=== PATIENT | female | born 1970 | race Caucasian/White ===

== ENCOUNTER 2016-11-16 12:05 | Inpatient (IN) | payer OTHER ==
[2016-11-16 19:31] VITALS: BMI 25.0
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
[2016-11-16] MEDS ORDERED: METHADONE HCL 10 MG TABLET (FOR DETOX USE ONLY) PO ONE ×2 (20:27→23:00)
[2016-11-16] MEDS ORDERED: LOPERAMIDE HCL 2 MG CAPSULE PO PRN (20:27)
[2016-11-16] MEDS ORDERED: MAGNESIUM HYDROX 2400MG/30ML ORAL SUSPENSION 30 ML CUP PO PRN (20:27)
[2016-11-16] MEDS ORDERED: guaiFENesin/D-METHORPHAN HB 10 ML UNIT-DOSE CUPS PO PRN (20:27)
[2016-11-16] MEDS ORDERED: diphenhydrAMINE HCL 50 MG CAPSULE PO PRN (20:27)
[2016-11-16] MEDS ORDERED: ACETAMINOPHEN 325 MG TABLET (FP) PO PRN (20:27)
[2016-11-16] MEDS ORDERED: P-EPHED 60MG/TRIPROLIDI 2.5MG TABLET PO PRN (20:27)
[2016-11-16] MEDS ORDERED: MAGNESIUM CITRATE 300 ML BOTTLE PO PRN (20:27)
[2016-11-16] MEDS ORDERED: NICOTINE POLACRILEX 4 MG GUM BC PRN (20:27)
[2016-11-16] MEDS ORDERED: MENTHOL/PHENOL 1 EACH UD MM PRN (20:27)
[2016-11-16] MEDS ORDERED: MAG HYDROX/AL HYDROX/SIMETH 30 ML UNIT-DOSE CUP PO PRN (20:27)
[2016-11-16] MEDS ORDERED: IBUPROFEN 400 MG TABLET (FP) PO PRN (20:27)
[2016-11-16] MEDS: diazePAM 5 MG TABLET PO PRN (22:12)
[2016-11-16] MEDS: GABAPENTIN 400 MG CAPSULE (FP) PO SCH (22:13)
[2016-11-16] MEDS: THIAMINE HCL 100 MG TABLET (FP) PO SCH (22:16)
[2016-11-16] MEDS: CLOTRIMAZOLE 1% VAGINAL CREAM WITH APPLICATOR 45 GM TUBE VG SCH (23:18)
[2016-11-17] MEDS: diazePAM 5 MG TABLET PO PRN ×4 (03:05→22:39)
[2016-11-17] MEDS: GABAPENTIN 400 MG CAPSULE (FP) PO SCH ×3 (05:27→22:39)
--- NOTE | 2016-11-17 09:58 | PN ---
[facility] COWS - Scale Resting Pulse: 0= SD 80 or Below Sweatin= Chills/Flushing Restless Observation: 3= Extraneous Movement Pupil Size: 1= Pupils >than Normal Bone or Joint Aches: 2= Severe Diffuse Aches Runny Nose/ Eye Tearin= Runny Nose/Eyes GI Upset > 30mins: 3= Vomiting/Diarrhea Tremor Observation of Outstretched Hands: 2= Slight Tremor Visible Yawning Observation: 1= 1-2x During Session Anxiety or Irritability: 2=Irritable/Anxious Goose Flesh Skin: 0=Smooth Skin COWS Score: 17 BHS Progress Note (SOAP) Subjective: ALERT,IRRITABLE,ANXIOUS,INTERRUPTED SLEEP,TREMOR Objective: 11/17/16 09:56 EKG NSR LVH NO CHEST PAIN,NO SOB,NO DIZZINESS LABS PENDING Assessment: 11/17/16 09:58 WITHDRAWAL SYMPTOM Plan: CONTINUE DETOX
[2016-11-17] MEDS ORDERED: METHADONE HCL 10 MG TABLET (FOR DETOX USE ONLY) PO ONE (10:00)
[2016-11-17] MEDS: cloNIDine HCL 0.1 MG TABLET PO SCH ×2 (10:15→22:39)
[2016-11-17] MEDS: PRENATAL VITAMINS W/ FOLIC ACID TABLET (FP) PO SCH (10:18)
[2016-11-17 10:20] LABS: MCH 28.2 pg (25.7-33.7); MCHC 32.6 g/dl (32.0-36.0); MEAN CELL VOLUME 86.6 fl (80-96); MEAN PLT VOLUME 10.4 fl (7.5-11.1); PLATELET COUNT 317 K/MM3 (134-434); RDW 16.6 % (11.6-15.6); WHITE BLOOD COUNT 11.1 K/mm3 (4.0-10.0)
[2016-11-17] MEDS: NICOTINE 21 MG/24 HOURS TOPICAL PATCH TD SCH (10:20)
--- NOTE | 2016-11-17 10:46 | EKG ---
Test Reason : Blood Pressure : / mmHG Vent. Rate : 083 BPM Atrial Rate : 083 BPM P-R Int : 132 ms QRS Dur : 090 ms QT Int : 382 ms P-R-T Axes : 074 078 072 degrees QTc Int : 448 ms NORMAL SINUS RHYTHM POSSIBLE LEFT ATRIAL ENLARGEMENT LEFT VENTRICULAR HYPERTROPHY ABNORMAL ECG NO PREVIOUS ECGS AVAILABLE Confirmed by EILEEN TERESA MD ([id number]) on 11/17/2016 10:46:02 AM Referred By: Confirmed By:EILEEN TERESA MD
[2016-11-17 10:54] LABS: ALBUMIN 4.2 g/dl (3.4-5.0); ALK PHOS 65 U/L (45-117); ANION GAP 12 (8-16); BILIRUBIN,TOTAL 0.3 mg/dL (0.2-1.0); CALCIUM 9.5 mg/dL (8.5-10.1); CO2 25 mmol/L (21-32); COCKROFT - GAULT 94.3755; CREATININE 0.8 mg/dL (0.55-1.02); GLUCOSE,RANDOM 122 mg/dL (74-106); SGOT/AST 16 U/L (15-37); SGPT/ALT 26 U/L (12-78); TOT PROT 7.8 g/dl (6.4-8.2)
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
[2016-11-17] MEDS: CYCLOBENZAPRINE HCL 10 MG TABLET (FP) PO PRN ×2 (13:24→22:39)
[2016-11-17] MEDS: QUEtiapine FUMARATE 200 MG TABLET PO SCH (22:39)
[2016-11-17] MEDS: THIAMINE HCL 100 MG TABLET (FP) PO SCH (22:39)
[2016-11-17] MEDS: CLOTRIMAZOLE 1% VAGINAL CREAM WITH APPLICATOR 45 GM TUBE VG SCH (23:54)
[2016-11-18] MEDS: GABAPENTIN 400 MG CAPSULE (FP) PO SCH ×4 (08:08→22:11)
--- NOTE | 2016-11-18 08:34 | PN ---
S COWS - Scale Resting Pulse: 0= CT 80 or Below Sweatin= Chills/Flushing Restless Observation: 3= Extraneous Movement Pupil Size: 2= Moderately Dilated Bone or Joint Aches: 2= Severe Diffuse Aches Runny Nose/ Eye Tearin= Runny Nose/Eyes GI Upset > 30mins: 2= Nausea/Diarrhea Tremor Observation of Outstretched Hands: 2= Slight Tremor Visible Yawning Observation: 1= 1-2x During Session Anxiety or Irritability: 2=Irritable/Anxious Goose Flesh Skin: 0=Smooth Skin COWS Score: 17 BHS Progress Note (SOAP) Subjective: ALERT,IRRITABLE,ANXIOUS,REDNESS AND SWELLING OF RIGHT EYE DILATED PUPIL WEAR THE CONTACT LENS R/O CORNEAL ABRASION Objective: 11/18/16 08:33 Vital Signs Temperature 98.2 F 11/18/16 06:00 Pulse Rate 62 11/18/16 06:00 Respiratory Rate 18 11/18/16 06:00 Blood Pressure 101/55 11/18/16 06:00 O2 Sat by Pulse Oximetry (%) Assessment: 11/18/16 08:33 Laboratory Last Values WBC 11.1 K/mm3 (4.0-10.0) H 11/17/16 06:00 RBC 4.67 M/mm3 (3.60-5.2) 11/17/16 06:00 Hgb 13.2 GM/dL (10.7-15.3) 11/17/16 06:00 Hct 40.4 % (32.4-45.2) 11/17/16 06:00 MCV 86.6 fl (80-96) 11/17/16 06:00 MCHC 32.6 g/dl (32.0-36.0) 11/17/16 06:00 RDW 16.6 % (11.6-15.6) H 11/17/16 06:00 Plt Count 317 K/MM3 (134-434) 11/17/16 06:00 MPV 10.4 fl (7.5-11.1) 11/17/16 06:00 Sodium 139 mmol/L (136-145) 11/17/16 06:00 Potassium 3.4 mmol/L (3.5-5.1) L 11/17/16 06:00 Chloride 102 mmol/L (98-107) 11/17/16 06:00 Carbon Dioxide 25 mmol/L (21-32) 11/17/16 06:00 Anion Gap 12 (8-16) 11/17/16 06:00 BUN 10 mg/dL (7-18) 11/17/16 06:00 Creatinine 0.8 mg/dL (0.55-1.02) 11/17/16 06:00 Creat Clearance w eGFR > 60 (>60) 11/17/16 06:00 Random Glucose 122 mg/dL (74-106) H 11/17/16 06:00 Calcium 9.5 mg/dL (8.5-10.1) 11/17/16 06:00 Total Bilirubin 0.3 mg/dL (0.2-1.0) 11/17/16 06:00 AST 16 U/L (15-37) 11/17/16 06:00 ALT 26 U/L (12-78) 11/17/16 06:00 Alkaline Phosphatase 65 U/L (45-117) 11/17/16 06:00 Total Protein 7.8 g/dl (6.4-8.2) 11/17/16 06:00 Albumin 4.2 g/dl (3.4-5.0) 11/17/16 06:00 RPR Titer Reactive 1:1 (NONREACTIVE) H 11/17/16 06:00 T.pallidum Ab (MHA) Reactive (NONREACTIVE) 11/17/16 06:00 Plan: WITHDRAWAL SYMPTOM,R/O CORNEAL ABRASION,TO ER AT [facility] FOR EVALUATION,SPOKE WITH CELESTINO EDWARDS, TO BE TRANSPORTED BY [facility]
[2016-11-18] MEDS: diazePAM 5 MG TABLET PO PRN ×3 (08:36→20:33)
[2016-11-18] MEDS ORDERED: METHADONE HCL 5 MG TABLET (FOR DETOX USE ONLY) PO ONE (10:00)
[2016-11-18] MEDS: cloNIDine HCL 0.1 MG TABLET PO SCH ×2 (12:33→22:11)
[2016-11-18] MEDS: PRENATAL VITAMINS W/ FOLIC ACID TABLET (FP) PO SCH (12:33)
[2016-11-18] MEDS: POTASSIUM CHLORIDE TABS 10 MEQ TABLET.ER (FP) PO SCH (12:34)
[2016-11-18] MEDS: NICOTINE 21 MG/24 HOURS TOPICAL PATCH TD SCH (12:36)
[2016-11-18] MEDS: CIPROFLOXACIN HCL 0.3% OPHTH 2.5ML BOTTLE OU SCH ×3 (14:59→22:57)
[2016-11-18] MEDS: THIAMINE HCL 100 MG TABLET (FP) PO SCH (22:11)
[2016-11-18] MEDS: QUEtiapine FUMARATE 200 MG TABLET PO SCH (22:11)
[2016-11-18] MEDS: CLOTRIMAZOLE 1% VAGINAL CREAM WITH APPLICATOR 45 GM TUBE VG SCH (22:58)
[2016-11-19] MEDS: GABAPENTIN 400 MG CAPSULE (FP) PO SCH ×3 (07:07→22:09)
[2016-11-19] MEDS: CIPROFLOXACIN HCL 0.3% OPHTH 2.5ML BOTTLE OU SCH ×5 (07:07→23:03)
[2016-11-19] MEDS ORDERED: METHADONE HCL 5 MG TABLET (FOR DETOX USE ONLY) PO ONE (10:00)
--- NOTE | 2016-11-19 10:09 | PN ---
BHS Progress Note (SOAP) Subjective: ALERT,IRRITABLE,ANXIOUS,INTERRUPTED SLEEP,PAIN IN THE BODY AND BACK,NO COMPLAINT ABOUT THE EYES Objective: 11/19/16 10:08 Vital Signs Temperature 97.9 F 11/19/16 09:27 Pulse Rate 77 11/19/16 09:27 Respiratory Rate 18 11/19/16 09:27 Blood Pressure 107/69 11/19/16 09:27 O2 Sat by Pulse Oximetry (%) Assessment: 11/19/16 10:08 WITHDRAWAL SYMPTOM Plan: CONTINUE DETOX,FLUID ENCOURAGEMENT,REPEAT CBC,CMP IN AM
[2016-11-19] MEDS: PRENATAL VITAMINS W/ FOLIC ACID TABLET (FP) PO SCH (10:20)
[2016-11-19] MEDS: cloNIDine HCL 0.1 MG TABLET PO SCH ×2 (10:21→22:09)
[2016-11-19] MEDS: POTASSIUM CHLORIDE TABS 10 MEQ TABLET.ER (FP) PO SCH (10:22)
[2016-11-19] MEDS: NICOTINE 21 MG/24 HOURS TOPICAL PATCH TD SCH (10:23)
[2016-11-19] MEDS: diazePAM 5 MG TABLET PO PRN (17:11)
[2016-11-19] MEDS: QUEtiapine FUMARATE 200 MG TABLET PO SCH (22:09)
[2016-11-19] MEDS: THIAMINE HCL 100 MG TABLET (FP) PO SCH (22:09)
[2016-11-19] MEDS: CLOTRIMAZOLE 1% VAGINAL CREAM WITH APPLICATOR 45 GM TUBE VG SCH (23:04)
[2016-11-20] MEDS: CIPROFLOXACIN HCL 0.3% OPHTH 2.5ML BOTTLE OU SCH ×5 (05:52→22:19)
[2016-11-20] MEDS: GABAPENTIN 400 MG CAPSULE (FP) PO SCH ×3 (05:54→22:20)
--- NOTE | 2016-11-20 09:55 | PN ---
S Progress Note (SOAP) Subjective: ALERT,IRRITABLE,ANXIOUS,INTERRUPTED SLEEP,PAIN IN THE BODY Objective: 11/20/16 09:53 Vital Signs Temperature 98.1 F 11/20/16 09:40 Pulse Rate 77 11/20/16 09:40 Respiratory Rate 18 11/20/16 09:40 Blood Pressure 107/70 11/20/16 09:40 O2 Sat by Pulse Oximetry (%) Laboratory Last Values WBC 11.1 K/mm3 (4.0-10.0) H 11/17/16 06:00 RBC 4.67 M/mm3 (3.60-5.2) 11/17/16 06:00 Hgb 13.2 GM/dL (10.7-15.3) 11/17/16 06:00 Hct 40.4 % (32.4-45.2) 11/17/16 06:00 MCV 86.6 fl (80-96) 11/17/16 06:00 MCHC 32.6 g/dl (32.0-36.0) 11/17/16 06:00 RDW 16.6 % (11.6-15.6) H 11/17/16 06:00 Plt Count 317 K/MM3 (134-434) 11/17/16 06:00 MPV 10.4 fl (7.5-11.1) 11/17/16 06:00 Sodium 139 mmol/L (136-145) 11/17/16 06:00 Potassium 3.4 mmol/L (3.5-5.1) L 11/17/16 06:00 Chloride 102 mmol/L (98-107) 11/17/16 06:00 Carbon Dioxide 25 mmol/L (21-32) 11/17/16 06:00 Anion Gap 12 (8-16) 11/17/16 06:00 BUN 10 mg/dL (7-18) 11/17/16 06:00 Creatinine 0.8 mg/dL (0.55-1.02) 11/17/16 06:00 Creat Clearance w eGFR > 60 (>60) 11/17/16 06:00 Random Glucose 122 mg/dL (74-106) H 11/17/16 06:00 Calcium 9.5 mg/dL (8.5-10.1) 11/17/16 06:00 Total Bilirubin 0.3 mg/dL (0.2-1.0) 11/17/16 06:00 AST 16 U/L (15-37) 11/17/16 06:00 ALT 26 U/L (12-78) 11/17/16 06:00 Alkaline Phosphatase 65 U/L (45-117) 11/17/16 06:00 Total Protein 7.8 g/dl (6.4-8.2) 11/17/16 06:00 Albumin 4.2 g/dl (3.4-5.0) 11/17/16 06:00 RPR Titer Reactive 1:1 (NONREACTIVE) H 11/17/16 06:00 T.pallidum Ab (MHA) Reactive (NONREACTIVE) 11/17/16 06:00 REPEAT CBC,CMP PENDING 11/20/16 10:00 Assessment: 11/20/16 10:00 WITHDRAWAL SYMPTOM Plan: CONTINUE DETOX,BICILLIN LA 2.4 MILLION UNITS IM
[2016-11-20 10:00] LABS: ALBUMIN 3.1 g/dl (3.4-5.0); ANION GAP 6 (8-16); BILIRUBIN,TOTAL 0.2 mg/dL (0.2-1.0); CALCIUM 8.9 mg/dL (8.5-10.1); CO2 31 mmol/L (21-32); CREATININE 0.6 mg/dL (0.55-1.02); GLUCOSE,RANDOM 107 mg/dL (74-106); SGOT/AST 33 U/L (15-37); SGPT/ALT 44 U/L (12-78); TOT PROT 5.9 g/dl (6.4-8.2)
[2016-11-20] MEDS ORDERED: METHADONE HCL 10 MG TABLET (FOR DETOX USE ONLY) PO ONE (10:00)
[2016-11-20 10:01] LABS: ALK PHOS 65 U/L (45-117)
[2016-11-20 10:07] LABS: MCHC 32.5 g/dl (32.0-36.0); MEAN CELL VOLUME 86.2 fl (80-96); MEAN PLT VOLUME 9.6 fl (7.5-11.1); PLATELET COUNT 241 K/MM3 (134-434); RDW 16.6 % (11.6-15.6); WHITE BLOOD COUNT 6.6 K/mm3 (4.0-10.0)
[2016-11-20] MEDS ORDERED: PENICILLIN G BENZATHINE 2,400,000 UNIT/4 ML PFS IM ONE (10:15)
[2016-11-20] MEDS: PRENATAL VITAMINS W/ FOLIC ACID TABLET (FP) PO SCH (10:17)
[2016-11-20] MEDS: cloNIDine HCL 0.1 MG TABLET PO SCH ×2 (10:17→22:19)
[2016-11-20] MEDS: POTASSIUM CHLORIDE TABS 10 MEQ TABLET.ER (FP) PO SCH (10:17)
[2016-11-20] MEDS: NICOTINE 21 MG/24 HOURS TOPICAL PATCH TD SCH (10:18)
[2016-11-20] MEDS ORDERED: hydrOXYzine PAMOATE 50 MG CAPSULE (FP) PO PRN (12:44)
[2016-11-20] MEDS: THIAMINE HCL 100 MG TABLET (FP) PO SCH (22:19)
[2016-11-20] MEDS: QUEtiapine FUMARATE 200 MG TABLET PO SCH (22:19)
[2016-11-20] MEDS: CYCLOBENZAPRINE HCL 10 MG TABLET (FP) PO PRN (22:20)
[2016-11-20] MEDS: CLOTRIMAZOLE 1% VAGINAL CREAM WITH APPLICATOR 45 GM TUBE VG SCH (23:18)
[2016-11-21] MEDS: CIPROFLOXACIN HCL 0.3% OPHTH 2.5ML BOTTLE OU SCH (05:43)
[2016-11-21] MEDS ORDERED: METHADONE HCL 5 MG TABLET (FOR DETOX USE ONLY) PO ONE (06:00)
[2016-11-21 06:17] VITALS: BP 94/56; PULSE 56; TEMP 97.5
[2016-11-21] MEDS: GABAPENTIN 400 MG CAPSULE (FP) PO SCH (07:11)
--- NOTE | 2016-11-21 08:44 | PN ---
S Progress Note (SOAP) Subjective: ALERT,NO COMPLAINT Objective: 11/21/16 08:43 Vital Signs Temperature 97.5 F L 11/21/16 06:16 Pulse Rate 56 L 11/21/16 06:16 Respiratory Rate 18 11/21/16 06:16 Blood Pressure 94/56 11/21/16 06:16 O2 Sat by Pulse Oximetry (%) Assessment: 11/21/16 08:43 DETOX COMPLETED,NO WITHDRAWAL SYMPTOM Plan: DISCHARGE TODAY,FOLLOW UP WITH AFTER CARE PROGRAM ARRANGEMENT
--- NOTE | 2016-11-21 08:48 | PN ---
[facility] Progress Note Note: Laboratory Results - last 24 hr 11/20/16 11/20/16 07:00 07:00 WBC 6.6 D RBC 4.40 Hgb 12.3 Hct 37.9 MCV 86.2 MCHC 32.5 RDW 16.6 H Plt Count 241 D MPV 9.6 Sodium 143 Potassium 4.2 D Chloride 106 Carbon Dioxide 31 D Anion Gap 6 L BUN 14 D Creatinine 0.6 D Creat Clearance w eGFR > 60 Random Glucose 107 H Calcium 8.9 Total Bilirubin 0.2 D AST 33 D ALT 44 D Alkaline Phosphatase 65 Total Protein 5.9 L D Albumin 3.1 L D K IS 4.2 WILL D/C K DISCHARGE TODAY
--- NOTE | 2016-11-21 08:50 | DS ---
[facility] Detox Discharge Summary Admission Date: 11/16/16 Discharge Date: 11/21/16 - History Present History: Opioid Dependence Additional Comments: FOLLOW UP WITH [facility]GRAM ARRANGEMENT AND PMD FOR MEDICAL PROBLEM Pertinent Past History: NICOTINE DEPENDENCE NEUROPATHY BIPOLAR 2 DISORDER VAGINITIS - Physical Exam Results Vital Signs: Vital Signs Temperature 97.5 F L 11/21/16 06:16 Pulse Rate 56 L 11/21/16 06:16 Respiratory Rate 18 11/21/16 06:16 Blood Pressure 94/56 11/21/16 06:16 O2 Sat by Pulse Oximetry (%) Pertinent Admission Physical Exam Findings: WITHDRAWAL SYMPTOM - Treatment Hospital Course: Detox Protocol Followed, Detoxed Safely, Responded well, Discharged Condition Good, Rehab Referral Accepted Patient has Accepted a Rehab Referral to: [facility] - Medication Discharge Medications: Ambulatory Orders Gabapentin [Neurontin -] 600 mg PO TID 11/16/16 Hydrocodone/Acetaminophen [Hydrocodon-Acetaminoph 7.5-325] 1 each PO Q6H Quetiapine Fumarate "Xr" [Seroquel Xr -] 600 mg PO HS 11/16/16 - AMA Did Patient Leave Against Medical Advice: No
--- NOTE | 2016-11-21 09:04 | PN ---
S Progress Note Note: PATIENT CHANGED HER MIND DID NOT WANT TO GO TO REVELATION,TO CONTINUE CIPRO OPH SOLUTION AND CLOTRIMAZOLE VAGINAL CREAM FOLLOW UP WITH PMD FOR MEDICAL PROBLEM AND AFTER CARE PROGRAM ARRANGEMENT
== END 2016-11-21 09:30 | disposition home or self-care (01) | DRG 897 ==
LOC: YASAS 12:05 → Y6N 20:42
PROVIDERS: ADMIT Internal Medicine Addiction Medicine; ATTEND Internal Medicine
PROC: HZ2ZZZZ Detoxification Services for Substance Abuse Treatment (ICD-10-PCS; principal; 2016-11-16)
DX: F11.23 Opioid dependence with withdrawal (principal); F31.81 Bipolar II disorder; F17.210 Nicotine dependence, cigarettes, uncomplicated; F19.24 Other psychoactive substance dependence with psychoactive substance-induced mood disorder; G62.9 Polyneuropathy, unspecified; G47.00 Insomnia, unspecified; N76.1 Subacute and chronic vaginitis; H57.8 Other specified disorders of eye and adnexa; Z91.5 Personal history of self-harm; Z59.0 Homelessness
CPT/HCPCS: 36415; 80053; 85027; 86593; 86780; 93005; 93010

== ENCOUNTER 2016-11-18 09:01 | Emergency (ER) | payer OTHER ==
[2016-11-18 09:10] VITALS: BP 116/80; PULSE 76; TEMP 98.5; BMI 25.0
[2016-11-18] MEDS ORDERED: TETRACAINE 0.5% OPHTH SOLN 2 ML BOTTLE ONE (10:20)
[2016-11-18] MEDS ORDERED: CIPROFLOXACIN 0.3% EYE DROPS 5 ML BOTTLE OP SCH (10:30)
[2016-11-18] MEDS ORDERED: IBUPROFEN 400 MG TABLET (FP) PO ONE ×2 (10:31→10:43)
--- NOTE | 2016-11-18 10:37 | PDOC ---
History of Present Illness <Josselyn Mcclendon - Last Filed: 11/18/16 10:32> - General History Source: Patient Exam Limitations: No Limitations - History of Present Illness Initial Comments: 11/18/16 10:41 The patient is a 46 year old female with a significant past medical history of depression, who presents to the ED with coming from detox for redness and itching in both eyes that began 2 days ago. She was told to use a specific eye lotion to wash her contacts (opti-free). However, she was only given normal saline to use at [facility]. She states she can't open her eyes at all today. She is experiencing Photophobia and 10/10 pain in both eyes. Denies foreign body sensation. She denies itching in the eyes. O/S 20/70 O/D 50 <Art Espinosa - Last Filed: 11/18/16 10:44> - General Chief Complaint: Eye Problem Stated Complaint: SWOLLEN EYES Time Seen by Provider: 11/18/16 09:16 Past History - Past Medical History Anemia: No Asthma: No Cancer: No Cardiac Disorders: No CVA: No COPD: No CHF: No Dementia: No Diabetes: No GI Disorders: No Disorders: No HTN: No Hypercholesterolemia: No Kidney Stones: No Liver Disease: No Suicide Attempt (Hx): Yes (13 years cut left wrist) Seizures: No Thyroid Disease: No - Surgical History Abdominal Surgery: No Appendectomy: No Cardiac Surgery: No Cholecystectomy: No Lung Surgery: No Neurologic Surgery: No Orthopedic Surgery: No - Reproductive History PID: No - Psycho/Social/Smoking Cessation Hx Anxiety: No Suicidal Ideation: No Smoking History: Never smoked Have you smoked in the past 12 months: Yes Number of Cigarettes Smoked Daily: 20 Cigars Per Day: 0 Information on smoking cessation initiated: No 'Breaking Loose' booklet given: 11/16/16 Hx Alcohol Use: No Drug/Substance Use Hx: Yes Substance Use Type: Opiates Hx Substance Use Treatment: No <Josselyn Mcclendon - Last Filed: 11/18/16 10:32> <Art Espinosa - Last Filed: 11/18/16 10:44> - Past Medical History Allergies/Adverse Reactions: Allergies Allergy/AdvReac Type Severity Reaction Status Date / Time No Known Allergies Allergy Verified 11/18/16 09:29 Home Medications: Ambulatory Orders Gabapentin [Neurontin -] 600 mg PO TID 11/16/16 Hydrocodone/Acetaminophen [Hydrocodon-Acetaminoph 7.5-325] 1 each PO Q6H Quetiapine Fumarate "Xr" [Seroquel Xr -] 600 mg PO HS 11/16/16 Review of Systems - Review of Systems Able to Perform ROS?: Yes Comments:: 11/18/16 10:42 GENERAL/CONSTITUTIONAL: No fever or chills. No weakness. HEAD, EYES, EARS, NOSE AND THROAT: + difficulty opening eyes. + redness in eyes. No ear pain or discharge. No sore throat. CARDIOVASCULAR: No chest pain or shortness of breath. RESPIRATORY: No cough, wheezing, or hemoptysis. GASTROINTESTINAL: No nausea, vomiting, diarrhea or constipation. GENITOURINARY: No dysuria, frequency, or change in urination. MUSCULOSKELETAL: No joint or muscle swelling or pain. No neck or back pain. SKIN: No rash NEUROLOGIC: No headache, vertigo, loss of consciousness, or change in strength/ sensation. ENDOCRINE: No increased thirst. No abnormal weight change. HEMATOLOGIC/LYMPHATIC: No anemia, easy bleeding, or history of blood clots. ALLERGIC/IMMUNOLOGIC: No hives or skin allergy. <Art Espinosa - Last Filed: 11/18/16 10:44> *Physical Exam - Vital Signs Last Vital Signs Temp Pulse Resp BP Pulse Ox 98.5 F 76 18 116/80 99 11/18/16 09:08 11/18/16 09:08 11/18/16 09:08 11/18/16 09:08 11/18/16 09:08 <Josselyn Mcclendon - Last Filed: 11/18/16 10:32> - Vital Signs Last Vital Signs Temp Pulse Resp BP Pulse Ox 98.5 F 76 18 116/80 99 11/18/16 09:08 11/18/16 09:08 11/18/16 09:08 11/18/16 09:08 11/18/16 09:08 - Physical Exam Comments: 11/18/16 10:42 GENERAL: Awake, alert, and fully oriented, in no acute distress HEAD: No signs of trauma EYES: PERRLA, EOMI, sclera anicteric. Bilateral conjunctival injection. No foreign bodies visualized. Left eye: small fluorescein uptake of the superior portion of the iris. ENT: Auricles normal inspection, hearing grossly normal, nares patent, oropharynx clear without exudates. Moist mucosa NECK: Normal ROM, supple, no lymphadenopathy, JVD, or masses LUNGS: Breath sounds equal, clear to auscultation bilaterally. No wheezes, and no crackles HEART: Regular rate and rhythm, normal S1 and S2, no murmurs, rubs or gallops ABDOMEN: Soft, nontender, normoactive bowel sounds. No guarding, no rebound. No masses EXTREMITIES: Normal range of motion, no edema. No clubbing or cyanosis. No cords, erythema, or tenderness NEUROLOGICAL: Cranial nerves II through XII grossly intact. Normal speech, normal gait SKIN: Warm, Dry, normal turgor, no rashes or lesions noted. <Art Espinosa - Last Filed: 11/18/16 10:44> Medical Decision Making - Medical Decision Making 11/18/16 10:32 46 yo F currently in detox at [facility] for heroin abuse, here wtih c/o bilateral eye pain and redness. pt is contact wearer. states gets irritation from saline eye wash which she has been using at detox because they didn't have another type. states pain for 2 days, does have photophobia, no foreign body sensation. states is no longer wearing contact lenses. notes eye redness. no change to vision. on exam bilat eye conj injection, edematous, left eye with punctate areas of flourescin uptake. impression: bilat conjunctivites possible allergic. let eye abrasion cornea. no contacts x one week. ciproflox eye drops motrin for pain control dc to rehab <Josselyn Mcclendon - Last Filed: 11/18/16 10:32> *DC/Admit/Observation/Transfer - Discharge Dispostion Admit: No <Josselyn Mcclendon - Last Filed: 11/18/16 10:32> - Attestations Scribe Attestion: 11/18/16 10:44 Documentation prepared by Art Espinosa, acting as emergency medical technician/driver for Josselyn Mcclendon MD, MD. <Art Espinosa - Last Filed: 11/18/16 10:44> Diagnosis at time of Disposition: Corneal abrasion - Patient Instructions Printed Discharge Instructions: Corneal Abrasion Additional Instructions: use ciprofloxacin eye drops, one drop in each eye four times daily x 10 days. do not wear contacts until treatment is completed. do not use saline eye wash. you can also use visine antihistamin drops for eye redness or itching. wear sunglassess, or keep lighting low to aid with light sensitivity. return for any change to vision or any concerns.
[2016-11-18] MEDS ORDERED: CIPROFLOXACIN 0.3% EYE DROPS 5 ML BOTTLE OP ONE (10:38)
== END 2016-11-18 11:50 | disposition home or self-care (01) ==
LOC: JERFT 09:01 → JER 09:01
DX: H10.13 Acute atopic conjunctivitis, bilateral (principal); S05.02XA Injury of conjunctiva and corneal abrasion without foreign body, left eye, initial encounter; X58.XXXA Exposure to other specified factors, initial encounter; Y93.9 Activity, unspecified; F32.9 Major depressive disorder, single episode, unspecified; Z59.0 Homelessness
CPT/HCPCS: 99282-25

== ENCOUNTER 2017-01-18 10:04 | Inpatient (IN) | payer OTHER ==
[2017-01-18 11:34] VITALS: BMI 24.3
--- NOTE | 2017-01-18 15:45 | HP ---
COWS - Scale Resting Pulse: 1= [place] 81-100 Sweatin=Flushed/Facial Moisture Restless Observation: 3= Extraneous Movement Pupil Size: 2= Moderately Dilated Bone or Joint Aches: 2= Severe Diffuse Aches Runny Nose/ Eye Tearin= Runny Nose/Eyes GI Upset > 30mins: 3= Vomiting/Diarrhea Tremor Observation: 2= Slight Tremor Visible Yawning Observation: 2= >3x During Session Anxiety or Irritability: 2=Irritable/Anxious Goose Flesh Skin: 0=Smooth Skin COWS Score: 21 Admission ROS BHS - HPI Chief Complaint: i need help to stop using heroin and cocaine Allergies/Adverse Reactions: Allergies Allergy/AdvReac Type Severity Reaction Status Date / Time No Known Allergies Allergy Verified 01/18/17 15:37 History of Present Illness: this 46 years old female with heroin and cocaine dependence,seeking help to stop last detox [facility] 11/16/16 to 11/21/16 bipolar disorder nicotine dependence vaginal discharge for 1 week no significant period of sobriety Exam Limitations: No Limitations - Ebola screening Have you traveled outside of the country in the last 21 days: No Have you had contact with anyone from an Ebola affected area: No Have you been sick,other than usual withdrawal symptoms: No Do you have a fever: No - Review of Systems Constitutional: Chills, Diaphoresis, Loss of Appetite, Malaise, Changes in sleep , Weakness, Unintentional Wgt. Loss EENT: reports: Tearing, Nose Congestion Respiratory: reports: No Symptoms reported Cardiac: reports: No Symptoms Reported GI: reports: Diarrhea, Nausea, Vomiting, Abdominal cramping : reports: No Symptoms Reported Integumentary: reports: Dryness Neuro: reports: Headache, Tremors Endocrine: reports: No Symptoms Reported Hematology: reports: No Symptoms Reported Psychiatric: reports: Judgement Intact (bipolar disorder), Mood/Affect Appropiate, other Patient History - Patient Medical History Hx Anemia: No Hx Asthma: Yes (on albuterolinhaler) Hx Chronic Obstructive Pulmonary Disease (COPD): No Hx Cancer: No Hx Cardiac Disorders: No Hx Congestive Heart Failure: No Hx Hypertension: No Hx Hypercholesterolemia: No Hx Pacemaker: No HX Cerebrovascular Accident: No Hx Seizures: No Hx Dementia: No Hx Diabetes: No Hx Gastrointestinal Disorders: No Hx Liver Disease: No Hx Genitourinary Disorders: No Hx Sexually Transmitted Disorders: No Hx Renal Disease (ESRD): No Hx Thyroid Disease: No Hx Human Immunodeficiency Virus (HIV): No (last 11/15 negtive) Hx Hepatitis C: No Hx Depression: Yes Hx Suicide Attempt: Yes (13 years cut left wrist) Hx Bipolar Disorder: No Hx Schizophrenia: No Other Medical History: no suicidal,no homicidal,vaginal discharge for 7 days - Patient Surgical History Past Surgical History: No Hx Neurologic Surgery: No Hx Cataract Extraction: No Hx Cardiac Surgery: No Hx Lung Surgery: No Hx Breast Surgery: No Hx Breast Biopsy: No Hx Abdominal Surgery: No Hx Appendectomy: No Hx Cholecystectomy: No Hx Genitourinary Surgery: No Hx Section: No Hx Orthopedic Surgery: No Anesthesia Reaction: No - PPD History Previous Implant?: Yes Documented Results: Negative w/proof Implanted On Prior [facility] Admission?: Yes Date: 11/18/16 Results: o mm PPD to be Administered?: No - Reproductive History Patient is a Female of Child Bearing Age (11 -55 yrs old): Yes Last Menstrual Period: 10/17/16 Patient : No - Smoking Cessation Smoking history: Current every day smoker Have you smoked in the past 12 months: Yes Aproximately how many cigarettes per day: 20 Cigars Per Day: 0 Hx Chewing Tobacco Use: No Initiated information on smoking cessation: Yes 'Breaking Loose' booklet given: 01/18/17 - Substance & Tx. History Hx Alcohol Use: No Hx Substance Use: Yes Substance Use Type: Cocaine, Opiates Hx Substance Use Treatment: Yes ([facility] 11/16/16 to 11/21/16) - Substances Abused Heroin Route: Inhalation Frequency: Daily Amount used: 30 bags Age of first use: 46 Date of Last Use: 01/18/17 Alcohol Route: Oral Frequency: Daily Amount used: 3 four locos Age of first use: 16 Date of Last Use: 01/18/17 Cocaine Route: Inhalation Frequency: 1-2 times per week Amount used: $50 Age of first use: 30 Date of Last Use: 01/17/17 Family Disease History - Family Disease History Family Disease History: Other: Father (), Mother (), Brother ( no contact) Admission Physical Exam BHS - Vital Signs Vital Signs: Vital Signs - 24 hr 01/18/17 11:29 Temperature 97.8 F Pulse Rate 93 H Respiratory 18 Rate Blood Pressure 148/89 - Physical General Appearance: Yes: Moderate Distress, Tremorous, Irritable, Sweating, Anxious HEENTM: Yes: Normal ENT Inspection, ZEESHAN, Pharynx Normal Respiratory: Yes: Lungs Clear, Normal Breath Sounds, No Respiratory Distress Neck: Yes: Within Normal Limits Breast: Yes: Breast Exam Deferred Cardiology: Yes: Within Normal Limits, Regular Rhythm, Regular Rate, S1, S2 Abdominal: Yes: Within Normal Limits, Normal Bowel Sounds, Non Tender, Flat, Soft Genitourinary: Yes: Within Normal Limits Back: Yes: Muscle Spasm Musculoskeletal: Yes: full range of Motion, Back pain, Joint Stiffness, Muscle Pain Extremities: Yes: Tremors Neurological: Yes: stores naval II-XII NML intact, Fully Oriented, Alert, Motor Strength 5/5 Integumentary: Yes: Dry Lymphatic: Yes: Within Normal Limits - Diagnostic (1) Bipolar disorder Current Visit: No Status: Acute (2) Insomnia Current Visit: No Status: Acute (3) Nicotine dependence Current Visit: No Status: Acute Qualifiers: Nicotine product type: cigarettes Substance use status: in withdrawal Qualified Code(s): F17.213 - Nicotine dependence, cigarettes, with withdrawal (4) Opioid dependence with withdrawal Current Visit: No Status: Acute (5) Vaginitis Current Visit: No Status: Acute Qualifiers: Chronicity: subacute Qualified Code(s): N76.1 - Subacute and chronic vaginitis (6) Neuropathy Current Visit: No Status: Chronic (7) Weight loss Current Visit: Yes Status: Acute Cleared for Admission [facility] - Detox or Rehab [facility] Level of Care: Medically Managed Detox Regimen/Protocol: Methadone/Valium [facility] Breath Alcohol Content Breath Alcohol Content: 0 Urine Pregancy Test - Result Urine Test Results: Negative- NO Line Present Urine Drug Screen - Results Drug Screen Negative: No Urine Drug Screen Results: SWETA-Cocaine, OPI-Opiates, BZO-Benzodiazepines, MTD- Methadone
[2017-01-18] MEDS ORDERED: NICOTINE POLACRILEX 2 MG GUM BC PRN (15:59)
[2017-01-18] MEDS ORDERED: P-EPHED 60MG/TRIPROLIDI 2.5MG TABLET PO PRN (15:59)
[2017-01-18] MEDS ORDERED: MAG HYDROX/AL HYDROX/SIMETH 30 ML UNIT-DOSE CUP PO PRN (15:59)
[2017-01-18] MEDS ORDERED: MENTHOL/PHENOL 1 EACH UD MM PRN (15:59)
[2017-01-18] MEDS ORDERED: LOPERAMIDE HCL 2 MG CAPSULE PO PRN (15:59)
[2017-01-18] MEDS ORDERED: MAGNESIUM HYDROX 2400MG/30ML ORAL SUSPENSION 30 ML CUP PO PRN (15:59)
[2017-01-18] MEDS ORDERED: guaiFENesin/D-METHORPHAN HB 10 ML UNIT-DOSE CUPS PO PRN (15:59)
[2017-01-18] MEDS ORDERED: MAGNESIUM CITRATE 300 ML BOTTLE PO PRN (15:59)
[2017-01-18] MEDS ORDERED: METHADONE HCL 10 MG TABLET (FOR DETOX USE ONLY) PO ONE ×2 (17:00→23:00)
[2017-01-18] MEDS ORDERED: diazePAM 5 MG TABLET PO ONE (17:00)
[2017-01-18] MEDS: NICOTINE 21 MG/24 HOURS TOPICAL PATCH TD SCH (17:32)
[2017-01-18] MEDS: hydrOXYzine PAMOATE 50 MG CAPSULE (FP) PO PRN (18:03)
[2017-01-18] MEDS: IBUPROFEN 400 MG TABLET (FP) PO PRN (18:04)
[2017-01-18] MEDS: ACETAMINOPHEN 325 MG TABLET (FP) PO PRN (20:34)
[2017-01-18 21:09] LABS: URINE APPEARANCE CLEAR; URINE BILIRUBIN NEGATIVE (NEGATIVE); URINE BLOOD NEGATIVE (NEGATIVE); URINE COLOR YELLOW; URINE GLUCOSE (UA) NEGATIVE (NEGATIVE); URINE KETONE TRACE (NEGATIVE); URINE LEUK ESTERASE NEGATIVE (NEGATIVE); URINE NITRITE NEGATIVE (NEGATIVE); URINE PROTEIN NEGATIVE (NEGATIVE); URINE UROBILINOGEN NEGATIVE mg/dL (0.2-1.0)
[2017-01-18] MEDS: metroNIDAZOLE 250 MG TABLET PO SCH (22:23)
[2017-01-18] MEDS: diazePAM 5 MG TABLET PO SCH (22:23)
[2017-01-18] MEDS: THIAMINE HCL 100 MG TABLET (FP) PO SCH (22:23)
[2017-01-18] MEDS: diphenhydrAMINE HCL 50 MG CAPSULE PO PRN (22:25)
[2017-01-18] MEDS: MICONAZOLE NITRATE 100 MG SUPP SUPP.VAG PV SCH (22:59)
[2017-01-19] MEDS: IBUPROFEN 400 MG TABLET (FP) PO PRN ×2 (04:26→12:14)
[2017-01-19] MEDS: metroNIDAZOLE 250 MG TABLET PO SCH ×3 (05:29→22:19)
[2017-01-19] MEDS: diazePAM 5 MG TABLET PO SCH ×3 (05:29→22:20)
[2017-01-19] MEDS ORDERED: METHADONE HCL 10 MG TABLET (FOR DETOX USE ONLY) PO SCH (10:00)
--- NOTE | 2017-01-19 10:21 | PN ---
S CIWA - CIWA Score Nausea/Vomitin Muscle Tremors: 3 Anxiety: 3 Agitation: 2 Paroxysmal Sweats: 1-Minimal Palms Moist Orientation: 0-Oriented Tacttile Disturbances: 1-Very Mild Itch/Numbness Auditory Disturbances: 1-Very Mild Visual Disturbances: 1-Very Mild Sensitivity Headache: 2-Mild CIWA-Ar Total Score: 17 BHS COWS - Scale Resting Pulse: 0= [place] 80 or Below Sweatin= Chills/Flushing Restless Observation: 3= Extraneous Movement Pupil Size: 1= Pupils >than Normal Bone or Joint Aches: 2= Severe Diffuse Aches Runny Nose/ Eye Tearin= Runny Nose/Eyes GI Upset > 30mins: 2= Nausea/Diarrhea Tremor Observation of Outstretched Hands: 2= Slight Tremor Visible Yawning Observation: 1= 1-2x During Session Anxiety or Irritability: 2=Irritable/Anxious Goose Flesh Skin: 0=Smooth Skin COWS Score: 16 S Progress Note (SOAP) Subjective: ALERT,IRRITABLE,ANXIOUS,INTERRUPTED SLEEP,TREMOR,PAIN IN THE BODY AND BACK, TREMOR Objective: 01/19/17 10:20 Vital Signs Temperature 98.1 F 01/19/17 06:00 Pulse Rate 63 01/19/17 06:00 Respiratory Rate 18 01/19/17 06:00 Blood Pressure 91/60 01/19/17 06:00 O2 Sat by Pulse Oximetry (%) EKG NSR,LEFT VENTRICULAR HYPERTROPHY Laboratory Last Values Urine Color Yellow 01/18/17 17:00 Urine Appearance Clear 01/18/17 17:00 Urine pH 6.0 (5.0-8.0) 01/18/17 17:00 Ur Specific [place] 1.025 (1.005-1.025) 01/18/17 17:00 Urine Protein Negative (NEGATIVE) 01/18/17 17:00 Urine Glucose (UA) Negative (NEGATIVE) 01/18/17 17:00 Urine Ketones Trace (NEGATIVE) H 01/18/17 17:00 Urine Blood Negative (NEGATIVE) 01/18/17 17:00 Urine Nitrite Negative (NEGATIVE) 01/18/17 17:00 Urine Bilirubin Negative (NEGATIVE) 01/18/17 17:00 Urine Urobilinogen Negative mg/dL (0.2-1.0) 01/18/17 17:00 Ur Leukocyte Esterase Negative (NEGATIVE) 01/18/17 17:00 LABS PENDING Assessment: 01/19/17 10:21 WITHDRAWAL SYMPTOM Plan: CONTINUE DETOX
[2017-01-19 10:24] LABS: MCH 30.1 pg (25.7-33.7); MCHC 33.2 g/dl (32.0-36.0); MEAN CELL VOLUME 90.6 fl (80-96); MEAN PLT VOLUME 10.2 fl (7.5-11.1); PLATELET COUNT 172 K/MM3 (134-434); RDW 18.2 % (11.6-15.6); WHITE BLOOD COUNT 5.4 K/mm3 (4.0-10.0)
--- NOTE | 2017-01-19 10:24 | EKG ---
Test Reason : Blood Pressure : / mmHG Vent. Rate : 079 BPM Atrial Rate : 079 BPM P-R Int : 128 ms QRS Dur : 092 ms QT Int : 394 ms P-R-T Axes : 075 074 059 degrees QTc Int : 451 ms NORMAL SINUS RHYTHM POSSIBLE LEFT ATRIAL ENLARGEMENT LEFT VENTRICULAR HYPERTROPHY ABNORMAL ECG WHEN COMPARED WITH ECG OF 16-NOV-2016 21:04, NO SIGNIFICANT CHANGE WAS FOUND Confirmed by MD TRISTEN, YASMANY ([id number]) on 01/19/2017 10:23:43 AM Referred By: Brian Mckeon Confirmed By:YASMANY RMAON MD
[2017-01-19] MEDS: PRENATAL VITAMINS W/ FOLIC ACID TABLET (FP) PO SCH (10:33)
[2017-01-19] MEDS: NICOTINE 21 MG/24 HOURS TOPICAL PATCH TD SCH (10:34)
[2017-01-19] MEDS: diazePAM 5 MG TABLET PO PRN (10:35)
[2017-01-19 10:50] LABS: ALBUMIN 3.2 g/dl (3.4-5.0); ALK PHOS 48 U/L (45-117); ANION GAP 5 (8-16); BILIRUBIN,TOTAL 0.2 mg/dL (0.2-1.0); CALCIUM 8.7 mg/dL (8.5-10.1); CO2 28 mmol/L (21-32); CREATININE 0.6 mg/dL (0.55-1.02); GLUCOSE,RANDOM 87 mg/dL (74-106); SGOT/AST 23 U/L (15-37); SGPT/ALT 34 U/L (12-78); TOT PROT 5.9 g/dl (6.4-8.2)
[2017-01-19] MEDS: hydrOXYzine PAMOATE 50 MG CAPSULE (FP) PO PRN (12:15)
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
[2017-01-19] MEDS: diphenhydrAMINE HCL 50 MG CAPSULE PO PRN (22:20)
[2017-01-19] MEDS: THIAMINE HCL 100 MG TABLET (FP) PO SCH (22:22)
[2017-01-19] MEDS: MICONAZOLE NITRATE 100 MG SUPP SUPP.VAG PV SCH (23:18)
[2017-01-20] MEDS: IBUPROFEN 400 MG TABLET (FP) PO PRN ×3 (03:00→19:34)
[2017-01-20] MEDS: diazePAM 5 MG TABLET PO PRN ×3 (03:02→19:35)
[2017-01-20] MEDS: metroNIDAZOLE 250 MG TABLET PO SCH ×3 (05:17→22:13)
[2017-01-20] MEDS: ACETAMINOPHEN 325 MG TABLET (FP) PO PRN (05:18)
[2017-01-20] MEDS: PRENATAL VITAMINS W/ FOLIC ACID TABLET (FP) PO SCH (10:32)
[2017-01-20] MEDS: hydrOXYzine PAMOATE 50 MG CAPSULE (FP) PO PRN ×2 (10:33→15:35)
[2017-01-20] MEDS: METHADONE HCL 5 MG TABLET (FOR DETOX USE ONLY) PO SCH (10:33)
[2017-01-20] MEDS: NICOTINE 21 MG/24 HOURS TOPICAL PATCH TD SCH (10:33)
[2017-01-20] MEDS: diazePAM 5 MG TABLET PO SCH ×2 (10:35→22:13)
--- NOTE | 2017-01-20 11:06 | PN ---
[facility] CIWA - CIWA Score Nausea/Vomitin Muscle Tremors: 3 Anxiety: 3 Agitation: 2 Paroxysmal Sweats: 1-Minimal Palms Moist Orientation: 0-Oriented Tacttile Disturbances: 1-Very Mild Itch/Numbness Auditory Disturbances: 1-Very Mild Visual Disturbances: 1-Very Mild Sensitivity Headache: 2-Mild CIWA-Ar Total Score: 17 BHS COWS - Scale Resting Pulse: 0= [place] 80 or Below Sweatin= Chills/Flushing Restless Observation: 3= Extraneous Movement Pupil Size: 1= Pupils >than Normal Bone or Joint Aches: 2= Severe Diffuse Aches Runny Nose/ Eye Tearin= Runny Nose/Eyes GI Upset > 30mins: 3= Vomiting/Diarrhea Tremor Observation of Outstretched Hands: 2= Slight Tremor Visible Yawning Observation: 1= 1-2x During Session Anxiety or Irritability: 2=Irritable/Anxious Goose Flesh Skin: 0=Smooth Skin COWS Score: 17 S Progress Note (SOAP) Subjective: alert,irritable,anxious,interrupted sleep,tremor,pain in the body and back Objective: 01/20/17 11:04 Vital Signs Temperature 98.1 F 01/20/17 09:43 Pulse Rate 72 01/20/17 09:43 Respiratory Rate 18 01/20/17 09:43 Blood Pressure 116/64 01/20/17 09:43 O2 Sat by Pulse Oximetry (%) Laboratory Last Values WBC 5.4 K/mm3 (4.0-10.0) 01/19/17 06:30 RBC 4.24 M/mm3 (3.60-5.2) 01/19/17 06:30 Hgb 12.7 GM/dL (10.7-15.3) 01/19/17 06:30 Hct 38.4 % (32.4-45.2) 01/19/17 06:30 MCV 90.6 fl (80-96) 01/19/17 06:30 MCH 30.1 pg (25.7-33.7) 01/19/17 06:30 MCHC 33.2 g/dl (32.0-36.0) 01/19/17 06:30 RDW 18.2 % (11.6-15.6) H 01/19/17 06:30 Plt Count 172 K/MM3 (134-434) D 01/19/17 06:30 MPV 10.2 fl (7.5-11.1) 01/19/17 06:30 Sodium 139 mmol/L (136-145) 01/19/17 06:30 Potassium 4.4 mmol/L (3.5-5.1) 01/19/17 06:30 Chloride 106 mmol/L (98-107) 01/19/17 06:30 Carbon Dioxide 28 mmol/L (21-32) 01/19/17 06:30 Anion Gap 5 (8-16) L 01/19/17 06:30 BUN 16 mg/dL (7-18) 01/19/17 06:30 Creatinine 0.6 mg/dL (0.55-1.02) 01/19/17 06:30 Creat Clearance w eGFR > 60 (>60) 01/19/17 06:30 Random Glucose 87 mg/dL (74-106) 01/19/17 06:30 Calcium 8.7 mg/dL (8.5-10.1) 01/19/17 06:30 Total Bilirubin 0.2 mg/dL (0.2-1.0) 01/19/17 06:30 AST 23 U/L (15-37) D 01/19/17 06:30 ALT 34 U/L (12-78) D 01/19/17 06:30 Alkaline Phosphatase 48 U/L (45-117) D 01/19/17 06:30 Total Protein 5.9 g/dl (6.4-8.2) L 01/19/17 06:30 Albumin 3.2 g/dl (3.4-5.0) L 01/19/17 06:30 Urine Color Yellow 01/18/17 17:00 Urine Appearance Clear 01/18/17 17:00 Urine pH 6.0 (5.0-8.0) 01/18/17 17:00 Ur Specific [place] 1.025 (1.005-1.025) 01/18/17 17:00 Urine Protein Negative (NEGATIVE) 01/18/17 17:00 Urine Glucose (UA) Negative (NEGATIVE) 01/18/17 17:00 Urine Ketones Trace (NEGATIVE) H 01/18/17 17:00 Urine Blood Negative (NEGATIVE) 01/18/17 17:00 Urine Nitrite Negative (NEGATIVE) 01/18/17 17:00 Urine Bilirubin Negative (NEGATIVE) 01/18/17 17:00 Urine Urobilinogen Negative mg/dL (0.2-1.0) 01/18/17 17:00 Ur Leukocyte Esterase Negative (NEGATIVE) 01/18/17 17:00 RPR Titer Reactive 1:1 (NONREACTIVE) H 01/19/17 06:30 T.pallidum Ab (MHA) Previously reactive (NONREACTIVE) 01/19/17 06:30 patient was treated for syphilis before Assessment: 01/20/17 11:06 withdrawal symptom Plan: continue detox
[2017-01-20] MEDS: diphenhydrAMINE HCL 50 MG CAPSULE PO PRN (22:12)
[2017-01-20] MEDS: THIAMINE HCL 100 MG TABLET (FP) PO SCH (22:12)
[2017-01-20] MEDS: MICONAZOLE NITRATE 100 MG SUPP SUPP.VAG PV SCH (22:14)
[2017-01-21] MEDS: diphenhydrAMINE HCL 50 MG CAPSULE PO PRN ×2 (02:13→23:19)
[2017-01-21] MEDS: IBUPROFEN 400 MG TABLET (FP) PO PRN ×3 (02:13→16:50)
[2017-01-21] MEDS: diazePAM 5 MG TABLET PO PRN ×2 (03:28→14:22)
[2017-01-21] MEDS: ACETAMINOPHEN 325 MG TABLET (FP) PO PRN ×2 (03:28→14:21)
[2017-01-21] MEDS: metroNIDAZOLE 250 MG TABLET PO SCH ×3 (05:22→22:25)
--- NOTE | 2017-01-21 10:05 | PN ---
BHS Progress Note (SOAP) Subjective: ALERT,IRRITABLE,ANXIOUS,INTERRUPTED SLEEP,PAIN IN THE BODY AND BACK Objective: 01/21/17 10:04 Vital Signs Temperature 98.2 F 01/21/17 09:52 Pulse Rate 63 01/21/17 09:52 Respiratory Rate 16 01/21/17 09:52 Blood Pressure 106/71 01/21/17 09:52 O2 Sat by Pulse Oximetry (%) Assessment: 01/21/17 10:05 WITHDRAWAL SYMPTOM Plan: CONTINUE DETOX
[2017-01-21] MEDS: PRENATAL VITAMINS W/ FOLIC ACID TABLET (FP) PO SCH (10:13)
[2017-01-21] MEDS: METHADONE HCL 5 MG TABLET (FOR DETOX USE ONLY) PO SCH (10:13)
[2017-01-21] MEDS: diazePAM 5 MG TABLET PO SCH ×2 (10:13→22:25)
[2017-01-21] MEDS: NICOTINE 21 MG/24 HOURS TOPICAL PATCH TD SCH (10:14)
[2017-01-21] MEDS: hydrOXYzine PAMOATE 50 MG CAPSULE (FP) PO PRN ×2 (14:22→19:45)
[2017-01-21] MEDS: THIAMINE HCL 100 MG TABLET (FP) PO SCH (22:25)
[2017-01-21] MEDS: MICONAZOLE NITRATE 100 MG SUPP SUPP.VAG PV SCH (22:39)
[2017-01-22] MEDS: IBUPROFEN 400 MG TABLET (FP) PO PRN (00:56)
[2017-01-22] MEDS: diphenhydrAMINE HCL 50 MG CAPSULE PO PRN (00:56)
[2017-01-22] MEDS: ACETAMINOPHEN 325 MG TABLET (FP) PO PRN (03:24)
[2017-01-22] MEDS: hydrOXYzine PAMOATE 50 MG CAPSULE (FP) PO PRN (03:26)
[2017-01-22] MEDS: metroNIDAZOLE 250 MG TABLET PO SCH (05:47)
--- NOTE | 2017-01-22 09:03 | PN ---
S Progress Note (SOAP) Subjective: ALERT,NO COMPLAINT Objective: 01/22/17 09:01 Vital Signs Temperature 97.3 F L 01/22/17 06:10 Pulse Rate 63 01/22/17 06:10 Respiratory Rate 18 01/22/17 06:10 Blood Pressure 108/65 01/22/17 06:10 O2 Sat by Pulse Oximetry (%) Assessment: 01/22/17 09:01 STABLE,NO WITHDRAWAL SYMPTOM Plan: DISCHARGE TODAY,FOLLOW UP WITH AFTER CARE PROGRAM ARRANGEMENT
--- NOTE | 2017-01-22 09:08 | DS ---
[facility] Detox Discharge Summary Admission Date: 01/18/17 Discharge Date: 01/22/17 - History Present History: Alcohol Dependence, Cocaine Dependence, Opioid Dependence Additional Comments: FOLLOW UP WITH AFTER CARE PROGRAM ARRANGEMENT Pertinent Past History: NEUROPATHY WEIGHT LOSS INSOMNIA BIPOLAR DISORDER VAGINITIS - Physical Exam Results Vital Signs: Vital Signs Temperature 97.3 F L 01/22/17 06:10 Pulse Rate 63 01/22/17 06:10 Respiratory Rate 18 01/22/17 06:10 Blood Pressure 108/65 01/22/17 06:10 O2 Sat by Pulse Oximetry (%) Pertinent Admission Physical Exam Findings: WITHDRAWAL SYMPTOM - Treatment Hospital Course: Detox Protocol Followed, Detoxed Safely, Responded well, Discharged Condition Good Patient has Accepted a Rehab Referral to: DECLINED - Medication Discharge Medications: Ambulatory Orders Gabapentin [Neurontin -] 400 mg PO TID 11/16/16 Quetiapine Fumarate "Xr" [Seroquel Xr -] 400 mg PO HS 11/16/16 Quetiapine Fumarate "Xr" [Seroquel XR] 200 mg PO HS@2000 #30 tablet 01/19/17 - Diagnosis (1) Bipolar disorder Current Visit: No Status: Acute (2) Insomnia Current Visit: No Status: Acute (3) Nicotine dependence Current Visit: No Status: Acute Qualifiers: Nicotine product type: cigarettes Substance use status: in withdrawal Qualified Code(s): F17.213 - Nicotine dependence, cigarettes, with withdrawal (4) Opioid dependence with withdrawal Current Visit: No Status: Acute (5) Vaginitis Current Visit: No Status: Acute Qualifiers: Chronicity: subacute Qualified Code(s): N76.1 - Subacute and chronic vaginitis (6) Neuropathy Current Visit: No Status: Chronic (7) Weight loss Current Visit: Yes Status: Acute (8) Alcohol dependence with uncomplicated withdrawal Current Visit: Yes Status: Acute (9) Cocaine dependence Current Visit: Yes Status: Acute - AMA Did Patient Leave Against Medical Advice: No
[2017-01-22] MEDS: PRENATAL VITAMINS W/ FOLIC ACID TABLET (FP) PO SCH (09:37)
[2017-01-22] MEDS: NICOTINE 21 MG/24 HOURS TOPICAL PATCH TD SCH (09:38)
[2017-01-22 09:56] VITALS: BP 116/74; PULSE 65; TEMP 97.7
[2017-01-22] MEDS ORDERED: METHADONE HCL 10 MG TABLET (FOR DETOX USE ONLY) PO SCH (10:00)
[2017-01-22] MEDS ORDERED: diazePAM 5 MG TABLET PO SCH (10:00)
[2017-01-23] MEDS ORDERED: METHADONE HCL 5 MG TABLET (FOR DETOX USE ONLY) PO SCH (06:00)
== END 2017-01-22 09:52 | disposition home or self-care (01) | DRG 897 ==
LOC: YASAS 10:04 → Y6N 16:17
PROVIDERS: ADMIT Internal Medicine Addiction Medicine; ATTEND Internal Medicine Addiction Medicine
PROC: HZ2ZZZZ Detoxification Services for Substance Abuse Treatment (ICD-10-PCS; principal; 2017-01-18)
DX: F19.230 Other psychoactive substance dependence with withdrawal, uncomplicated (principal); F14.20 Cocaine dependence, uncomplicated; F11.23 Opioid dependence with withdrawal; F10.230 Alcohol dependence with withdrawal, uncomplicated; F17.210 Nicotine dependence, cigarettes, uncomplicated; F31.9 Bipolar disorder, unspecified; J45.909 Unspecified asthma, uncomplicated; G47.00 Insomnia, unspecified; N76.1 Subacute and chronic vaginitis; G62.9 Polyneuropathy, unspecified; Z87.42 Personal history of other diseases of the female genital tract; Z87.898 Personal history of other specified conditions; Z91.5 Personal history of self-harm
CPT/HCPCS: 36415; 80053; 81003; 85027; 86593; 86780; 93005; 93010

== ENCOUNTER 2017-02-22 09:48 | Inpatient (IN) | payer OTHER ==
[2017-02-22 10:08] VITALS: BMI 23.3
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
[2017-02-22] MEDS ORDERED: NICOTINE POLACRILEX 2 MG GUM BC PRN (13:45)
[2017-02-22] MEDS ORDERED: P-EPHED 60MG/TRIPROLIDI 2.5MG TABLET PO PRN (13:45)
[2017-02-22] MEDS ORDERED: MENTHOL/PHENOL 1 EACH UD MM PRN (13:45)
[2017-02-22] MEDS ORDERED: ACETAMINOPHEN 325 MG TABLET (FP) PO PRN (13:45)
[2017-02-22] MEDS ORDERED: MAG HYDROX/AL HYDROX/SIMETH 30 ML UNIT-DOSE CUP PO PRN (13:45)
[2017-02-22] MEDS ORDERED: MAGNESIUM CITRATE 300 ML BOTTLE PO PRN (13:45)
[2017-02-22] MEDS ORDERED: LOPERAMIDE HCL 2 MG CAPSULE PO PRN (13:45)
[2017-02-22] MEDS ORDERED: guaiFENesin/D-METHORPHAN HB 10 ML UNIT-DOSE CUPS PO PRN (13:45)
[2017-02-22] MEDS ORDERED: MAGNESIUM HYDROX 2400MG/30ML ORAL SUSPENSION 30 ML CUP PO PRN (13:45)
[2017-02-22] MEDS ORDERED: diphenhydrAMINE HCL 50 MG CAPSULE PO PRN (13:45)
[2017-02-22] MEDS: metroNIDAZOLE 250 MG TABLET PO SCH ×2 (14:29→22:06)
[2017-02-22] MEDS ORDERED: METHADONE HCL 10 MG TABLET (FOR DETOX USE ONLY) PO ONE ×2 (14:30→23:00)
[2017-02-22] MEDS: CYCLOBENZAPRINE HCL 10 MG TABLET (FP) PO PRN (14:31)
[2017-02-22] MEDS: diazePAM 5 MG TABLET PO PRN ×2 (14:32→22:08)
[2017-02-22] MEDS: NICOTINE 21 MG/24 HOURS TOPICAL PATCH TD SCH (14:32)
--- NOTE | 2017-02-22 16:20 | EKG ---
Test Reason : Blood Pressure : / mmHG Vent. Rate : 050 BPM Atrial Rate : 050 BPM P-R Int : 134 ms QRS Dur : 092 ms QT Int : 458 ms P-R-T Axes : 055 076 067 degrees QTc Int : 417 ms SINUS BRADYCARDIA WITH SINUS ARRHYTHMIA MINIMAL VOLTAGE CRITERIA FOR LVH, MAY BE NORMAL VARIANT BORDERLINE ECG WHEN COMPARED WITH ECG OF 18-JAN-2017 16:10, VENT. RATE HAS DECREASED BY 29 BPM Confirmed by ANGEL JIM, MARTÍN ([id number]) on 02/22/2017 4:20:20 PM Referred By: Olegario Galloway Confirmed By:MARTÍN ORTIZ MD
[2017-02-22 17:14] LABS: URINE APPEARANCE SLCLOUDY; URINE BILIRUBIN NEGATIVE (NEGATIVE); URINE BLOOD NEGATIVE (NEGATIVE); URINE COLOR AMBER; URINE GLUCOSE (UA) NEGATIVE (NEGATIVE); URINE KETONE NEGATIVE (NEGATIVE); URINE LEUK ESTERASE NEGATIVE (NEGATIVE); URINE NITRITE NEGATIVE (NEGATIVE); URINE PROTEIN NEGATIVE (NEGATIVE)
[2017-02-22] MEDS: cloNIDine HCL 0.1 MG TABLET PO SCH (22:06)
[2017-02-22] MEDS: THIAMINE HCL 100 MG TABLET (FP) PO SCH (22:06)
[2017-02-23] MEDS: CYCLOBENZAPRINE HCL 10 MG TABLET (FP) PO PRN ×2 (05:46→22:05)
[2017-02-23] MEDS: IBUPROFEN 400 MG TABLET (FP) PO PRN (05:46)
[2017-02-23] MEDS: metroNIDAZOLE 250 MG TABLET PO SCH ×3 (05:46→22:05)
[2017-02-23] MEDS: diazePAM 5 MG TABLET PO PRN ×3 (05:46→22:06)
[2017-02-23 09:40] LABS: MCH 30.3 pg (25.7-33.7); MCHC 33.4 g/dl (32.0-36.0); MEAN CELL VOLUME 90.9 fl (80-96); PLATELET COUNT 199 K/MM3 (134-434); RDW 16.1 % (11.6-15.6)
[2017-02-23] MEDS ORDERED: METHADONE HCL 10 MG TABLET (FOR DETOX USE ONLY) PO ONE (10:00)
[2017-02-23 10:04] LABS: ALBUMIN 3.5 g/dl (3.4-5.0); ALK PHOS 52 U/L (45-117); ANION GAP 7 (8-16); BILIRUBIN,TOTAL 0.4 mg/dL (0.2-1.0); CALCIUM 8.6 mg/dL (8.5-10.1); CO2 29 mmol/L (21-32); CREATININE 0.6 mg/dL (0.55-1.02); GLUCOSE,RANDOM 96 mg/dL (74-106); SGOT/AST 17 U/L (15-37); SGPT/ALT 24 U/L (12-78); TOT PROT 6.4 g/dl (6.4-8.2)
[2017-02-23] MEDS: cloNIDine HCL 0.1 MG TABLET PO SCH ×2 (10:16→22:06)
[2017-02-23] MEDS: NICOTINE 21 MG/24 HOURS TOPICAL PATCH TD SCH (10:16)
[2017-02-23] MEDS: PRENATAL VITAMINS W/ FOLIC ACID TABLET (FP) PO SCH (10:16)
--- NOTE | 2017-02-23 11:00 | PN ---
BHS COWS - Scale Resting Pulse: 2= ND 101-120 Sweatin= Chills/Flushing Restless Observation: 3= Extraneous Movement Pupil Size: 1= Pupils >than Normal Bone or Joint Aches: 2= Severe Diffuse Aches Runny Nose/ Eye Tearin= Runny Nose/Eyes GI Upset > 30mins: 3= Vomiting/Diarrhea Tremor Observation of Outstretched Hands: 2= Slight Tremor Visible Yawning Observation: 1= 1-2x During Session Anxiety or Irritability: 2=Irritable/Anxious Goose Flesh Skin: 0=Smooth Skin COWS Score: 19 S Progress Note (SOAP) Subjective: ALERT,IRRITABLE,ANXIOUS,INTERRUPTED SLEEP,TREMOR,PAIN IN THE BODY AND BACK Objective: 02/23/17 10:57 Vital Signs Temperature 98.1 F 02/23/17 10:09 Pulse Rate 47 L 02/23/17 10:09 Respiratory Rate 18 02/23/17 10:09 Blood Pressure 109/57 02/23/17 10:09 O2 Sat by Pulse Oximetry (%) EKG SINUS BRADYCARDIA 48/MIN LVH Laboratory Last Values WBC 6.0 K/mm3 (4.0-10.0) 02/23/17 06:00 RBC 4.15 M/mm3 (3.60-5.2) 02/23/17 06:00 Hgb 12.6 GM/dL (10.7-15.3) 02/23/17 06:00 Hct 37.7 % (32.4-45.2) 02/23/17 06:00 MCV 90.9 fl (80-96) 02/23/17 06:00 MCH 30.3 pg (25.7-33.7) 02/23/17 06:00 MCHC 33.4 g/dl (32.0-36.0) 02/23/17 06:00 RDW 16.1 % (11.6-15.6) H D 02/23/17 06:00 Plt Count 199 K/MM3 (134-434) 02/23/17 06:00 MPV 11.0 fl (7.5-11.1) 02/23/17 06:00 Sodium 141 mmol/L (136-145) 02/23/17 06:00 Potassium 3.4 mmol/L (3.5-5.1) L D 02/23/17 06:00 Chloride 105 mmol/L (98-107) 02/23/17 06:00 Carbon Dioxide 29 mmol/L (21-32) 02/23/17 06:00 Anion Gap 7 (8-16) L 02/23/17 06:00 BUN 6 mg/dL (7-18) L D 02/23/17 06:00 Creatinine 0.6 mg/dL (0.55-1.02) 02/23/17 06:00 Creat Clearance w eGFR > 60 (>60) 02/23/17 06:00 Random Glucose 96 mg/dL (74-106) 02/23/17 06:00 Calcium 8.6 mg/dL (8.5-10.1) 02/23/17 06:00 Total Bilirubin 0.4 mg/dL (0.2-1.0) D 02/23/17 06:00 AST 17 U/L (15-37) D 02/23/17 06:00 ALT 24 U/L (12-78) D 02/23/17 06:00 Alkaline Phosphatase 52 U/L (45-117) 02/23/17 06:00 Total Protein 6.4 g/dl (6.4-8.2) 02/23/17 06:00 Albumin 3.5 g/dl (3.4-5.0) 02/23/17 06:00 Urine Color Elissa 02/22/17 15:00 Urine Appearance Slcloudy 02/22/17 15:00 Urine pH 5.0 (5.0-8.0) 02/22/17 15:00 Ur Specific [place] >= 1.030 (1.005-1.025) H 02/22/17 15:00 Urine Protein Negative (NEGATIVE) 02/22/17 15:00 Urine Glucose (UA) Negative (NEGATIVE) 02/22/17 15:00 Urine Ketones Negative (NEGATIVE) 02/22/17 15:00 Urine Blood Negative (NEGATIVE) 02/22/17 15:00 Urine Nitrite Negative (NEGATIVE) 02/22/17 15:00 Urine Bilirubin Negative (NEGATIVE) 02/22/17 15:00 Urine Urobilinogen 2.0 mg/dL (0.2-1.0) H 02/22/17 15:00 Ur Leukocyte Esterase Negative (NEGATIVE) 02/22/17 15:00 Assessment: 02/23/17 10:58 WITHDRAWAL SYMPTOM Plan: CONTINUE DETOX,HYPOKALEMIA K DUR 20 MEQ PO DAILY
[2017-02-23] MEDS: POTASSIUM CHLORIDE TABS 20 MEQ TABLET.ER (FP) PO SCH (12:21)
--- NOTE | 2017-02-23 17:10 | CONSULT ---
[facility] Psychiatric Consult - Data Date of interview: 02/23/17 Admission source: [facility] Identifying data: Readmission to [facility] for this 46 y/o female seeking detox treatment for alcohol,cocaine and heroin dependence (tox screen is also positive for cannabis).Patient is single,a mother of one (claimed four children when seen by conventional mortgage underwriter on 11/17/16), homeless,unemployed and supported on SSI benefits. Substance Abuse History: Discussed with the patient in this interview.Ms Maza sergio,confirms this report. Smoking Cessation. Smoking history: Current every day smoker. Have you smoked in the past 12 months: Yes. Aproximately how many cigarettes per day: 20. Cigars Per Day: 0. Hx Chewing Tobacco Use: No. Initiated information on smoking cessation: Yes. 'Breaking Loose' booklet given: 02/22/17. - Substance & Tx. History. Hx Alcohol Use: Yes. Hx Substance Use: Yes. Substance Use Type: Alcohol, Cocaine, Heroin. - Substances Abused. Heroin. Route: Inhalation. Frequency: Daily. Amount used: 30 bags. Age of first use: 45. Date of Last Use: 02/21/17. Cocaine. Route: Inhalation. Frequency: 3-6 times per week. Amount used: $20. Age of first use: 17. Date of Last Use: 02/21/17. Alcohol-4 nataliia. Route: Oral. Frequency: 3-6 times per week. Amount used: 2 (12 oz.). Age of first use: 22. Date of Last Use: 02/21/17 Medical History: Patient reports good general health.Noted history (on record) of past treatment for syphilis. Psychiatric History: Patient is a hostile,verbally abusive,unreliable and vague historian.Ms Maza admits to a history of three psychiatric hospitalizations " in [facility] ".Reportedly diagnosed with Bipolar Disorder.Patient declares that she is prescribed seroquel 600 mg/hs and gabapentin (dose not recalled)." I am seeing a psychiatrist somewhere in [facility] where I live." No information about pattern of adherence to OPD care.Unclear date of last medication intake.Known history of suicide attempts (wrist-cutting at age 13 + age 19). Physical/Sexual Abuse/Trauma History: No information.Patient is grossly uncooperative. Additional Comment: Urine Drug Screen Results: THC-Marijuana, SWETA-Cocaine, OPI- Opiates, BZO-Benzodiazepines.Noted. Mental Status Exam - Mental Status Exam Alert and Oriented to: Time, Place, Person Cognitive Function: Grossly Intact Patient Appearance: Unkempt (tattoos on neck), Disheveled Mood: Angry, Hostile, Withdrawn, Irritable Affect: Mood Congruent, Blunted Patient Behavior: Inappropriate, Fatigued, Uncooperative Speech Pattern: Inappropriate (profane language) Voice Loudness: Moderately Loud Thought Process: Disorganized Thought Disorder: Not Present Hallucinations: Denies Suicidal Ideation: Denies Homicidal Ideation: Denies Insight/Judgement: Poor Sleep: Poorly, Difficulty falling asleep (self made claims) Appetite: Poor Muscle strength/Tone: Normal (no complaint of weakness) Gait/Station: Normal Psychiatric Findings - Problem List ([place] 1, 2,3) (1) Alcohol dependence with uncomplicated withdrawal Current Visit: Yes Status: Acute (2) Opioid dependence with withdrawal Current Visit: Yes Status: Acute (3) Cocaine dependence Current Visit: Yes Status: Acute (4) Marihuana dependence Current Visit: Yes Status: Acute (5) Nicotine dependence Current Visit: Yes Status: Acute Qualifiers: Nicotine product type: cigarettes Substance use status: in withdrawal Qualified Code(s): F17.213 - Nicotine dependence, cigarettes, with withdrawal (6) Substance induced mood disorder Current Visit: Yes Status: Acute (7) Bipolar disorder Current Visit: No Status: Chronic Comment: Self-report. (8) Insomnia Current Visit: Yes Status: Acute - Initial Treatment Plan Initial Treatment Plan: Psychoeducation initiated but rejected by the patient at this time.Detoxification in progress.Will resume seroquel at the dose of 100 mg po hs and will titrate accordingly.Patient is informed of this careplan.Ms Maza consents to follow this plan.Observation.
[2017-02-23] MEDS: THIAMINE HCL 100 MG TABLET (FP) PO SCH (22:05)
[2017-02-23] MEDS: QUEtiapine FUMARATE 100 MG TABLET (FP) PO SCH (22:05)
[2017-02-24] MEDS: diazePAM 5 MG TABLET PO PRN ×4 (03:18→22:03)
[2017-02-24] MEDS: metroNIDAZOLE 250 MG TABLET PO SCH ×3 (06:40→22:03)
[2017-02-24] MEDS ORDERED: METHADONE HCL 5 MG TABLET (FOR DETOX USE ONLY) PO ONE (10:00)
[2017-02-24] MEDS: POTASSIUM CHLORIDE TABS 20 MEQ TABLET.ER (FP) PO SCH (10:27)
[2017-02-24] MEDS: cloNIDine HCL 0.1 MG TABLET PO SCH ×2 (10:27→22:03)
[2017-02-24] MEDS: PRENATAL VITAMINS W/ FOLIC ACID TABLET (FP) PO SCH (10:27)
[2017-02-24] MEDS: NICOTINE 21 MG/24 HOURS TOPICAL PATCH TD SCH (10:28)
[2017-02-24] MEDS: CYCLOBENZAPRINE HCL 10 MG TABLET (FP) PO PRN ×2 (10:33→22:03)
--- NOTE | 2017-02-24 12:39 | PN ---
S COWS - Scale Resting Pulse: 0= [place] 80 or Below Sweatin= Chills/Flushing Restless Observation: 3= Extraneous Movement Pupil Size: 2= Moderately Dilated Bone or Joint Aches: 2= Severe Diffuse Aches Runny Nose/ Eye Tearin= Runny Nose/Eyes GI Upset > 30mins: 2= Nausea/Diarrhea Tremor Observation of Outstretched Hands: 2= Slight Tremor Visible Yawning Observation: 2= >3x During Session Anxiety or Irritability: 2=Irritable/Anxious Goose Flesh Skin: 0=Smooth Skin COWS Score: 18 BHS Progress Note (SOAP) Subjective: alert,irritable,anxious,interrupted sleep,pain in the body and joint and back Objective: 02/24/17 12:37 Vital Signs Temperature 98.1 F 02/24/17 10:00 Pulse Rate 63 02/24/17 10:00 Respiratory Rate 18 02/24/17 10:00 Blood Pressure 128/90 02/24/17 10:00 O2 Sat by Pulse Oximetry (%) Laboratory Last Values WBC 6.0 K/mm3 (4.0-10.0) 02/23/17 06:00 RBC 4.15 M/mm3 (3.60-5.2) 02/23/17 06:00 Hgb 12.6 GM/dL (10.7-15.3) 02/23/17 06:00 Hct 37.7 % (32.4-45.2) 02/23/17 06:00 MCV 90.9 fl (80-96) 02/23/17 06:00 MCH 30.3 pg (25.7-33.7) 02/23/17 06:00 MCHC 33.4 g/dl (32.0-36.0) 02/23/17 06:00 RDW 16.1 % (11.6-15.6) H D 02/23/17 06:00 Plt Count 199 K/MM3 (134-434) 02/23/17 06:00 MPV 11.0 fl (7.5-11.1) 02/23/17 06:00 Sodium 141 mmol/L (136-145) 02/23/17 06:00 Potassium 3.4 mmol/L (3.5-5.1) L D 02/23/17 06:00 Chloride 105 mmol/L (98-107) 02/23/17 06:00 Carbon Dioxide 29 mmol/L (21-32) 02/23/17 06:00 Anion Gap 7 (8-16) L 02/23/17 06:00 BUN 6 mg/dL (7-18) L D 02/23/17 06:00 Creatinine 0.6 mg/dL (0.55-1.02) 02/23/17 06:00 Creat Clearance w eGFR > 60 (>60) 02/23/17 06:00 Random Glucose 96 mg/dL (74-106) 02/23/17 06:00 Calcium 8.6 mg/dL (8.5-10.1) 02/23/17 06:00 Total Bilirubin 0.4 mg/dL (0.2-1.0) D 02/23/17 06:00 AST 17 U/L (15-37) D 02/23/17 06:00 ALT 24 U/L (12-78) D 02/23/17 06:00 Alkaline Phosphatase 52 U/L (45-117) 02/23/17 06:00 Total Protein 6.4 g/dl (6.4-8.2) 02/23/17 06:00 Albumin 3.5 g/dl (3.4-5.0) 02/23/17 06:00 Urine Color Elissa 02/22/17 15:00 Urine Appearance Slcloudy 02/22/17 15:00 Urine pH 5.0 (5.0-8.0) 02/22/17 15:00 Ur Specific [place] >= 1.030 (1.005-1.025) H 02/22/17 15:00 Urine Protein Negative (NEGATIVE) 02/22/17 15:00 Urine Glucose (UA) Negative (NEGATIVE) 02/22/17 15:00 Urine Ketones Negative (NEGATIVE) 02/22/17 15:00 Urine Blood Negative (NEGATIVE) 02/22/17 15:00 Urine Nitrite Negative (NEGATIVE) 02/22/17 15:00 Urine Bilirubin Negative (NEGATIVE) 02/22/17 15:00 Urine Urobilinogen 2.0 mg/dL (0.2-1.0) H 02/22/17 15:00 Ur Leukocyte Esterase Negative (NEGATIVE) 02/22/17 15:00 RPR Titer Reactive 1:1 (NONREACTIVE) H 02/23/17 06:00 T.pallidum Ab (MHA) Previously reactive (NONREACTIVE) 02/23/17 06:00 previously treated for syphilis Assessment: 02/24/17 12:38 withdrawal symptom Plan: continue detox
[2017-02-24] MEDS: QUEtiapine FUMARATE 100 MG TABLET (FP) PO SCH (22:03)
[2017-02-24] MEDS: THIAMINE HCL 100 MG TABLET (FP) PO SCH (22:03)
[2017-02-25] MEDS: metroNIDAZOLE 250 MG TABLET PO SCH ×3 (05:37→22:02)
[2017-02-25] MEDS: CYCLOBENZAPRINE HCL 10 MG TABLET (FP) PO PRN ×2 (05:39→22:04)
--- NOTE | 2017-02-25 09:52 | PN ---
S Progress Note (SOAP) Subjective: ALERT,IRRITABLE,ANXIOUS,INTERRUPTED SLEEP,TREMOR,PAIN IN THE BODY AND BACK Objective: 02/25/17 09:50 Vital Signs Temperature 98.1 F 02/25/17 06:13 Pulse Rate 54 L 02/25/17 06:13 Respiratory Rate 16 02/25/17 06:13 Blood Pressure 120/74 02/25/17 06:13 O2 Sat by Pulse Oximetry (%) Assessment: 02/25/17 09:51 WITHDRAWAL SYMPTOM Plan: CONTINUE DETOX
[2017-02-25] MEDS ORDERED: METHADONE HCL 5 MG TABLET (FOR DETOX USE ONLY) PO ONE (10:00)
[2017-02-25] MEDS: PRENATAL VITAMINS W/ FOLIC ACID TABLET (FP) PO SCH (10:22)
[2017-02-25] MEDS: POTASSIUM CHLORIDE TABS 20 MEQ TABLET.ER (FP) PO SCH (10:22)
[2017-02-25] MEDS: cloNIDine HCL 0.1 MG TABLET PO SCH ×2 (10:22→22:02)
[2017-02-25] MEDS: NICOTINE 21 MG/24 HOURS TOPICAL PATCH TD SCH (10:23)
[2017-02-25] MEDS: diazePAM 5 MG TABLET PO PRN (10:26)
[2017-02-25] MEDS: MICONAZOLE NITRATE 100 MG SUPP SUPP.VAG PV SCH (21:56)
[2017-02-25] MEDS: THIAMINE HCL 100 MG TABLET (FP) PO SCH (22:02)
[2017-02-25] MEDS: QUEtiapine FUMARATE 100 MG TABLET (FP) PO SCH (22:02)
[2017-02-26] MEDS: metroNIDAZOLE 250 MG TABLET PO SCH ×2 (05:56→22:02)
[2017-02-26] MEDS: hydrOXYzine PAMOATE 50 MG CAPSULE (FP) PO PRN ×3 (05:58→21:06)
[2017-02-26] MEDS ORDERED: PENICILLIN G BENZATHINE 2,400,000 UNIT/4 ML PFS IM ONE (09:00)
[2017-02-26] MEDS ORDERED: FLUCONAZOLE 50 MG TABLET PO ONE (09:00)
--- NOTE | 2017-02-26 09:38 | PN ---
S Progress Note (SOAP) Subjective: alert,irritable,anxious,pain in the body,vaginal discharge, history of syphilis Objective: 02/26/17 09:34 Vital Signs Temperature 98.2 F 02/26/17 06:18 Pulse Rate 61 02/26/17 06:18 Respiratory Rate 16 02/26/17 06:18 Blood Pressure 117/74 02/26/17 06:18 O2 Sat by Pulse Oximetry (%) Laboratory Last Values WBC 6.0 K/mm3 (4.0-10.0) 02/23/17 06:00 RBC 4.15 M/mm3 (3.60-5.2) 02/23/17 06:00 Hgb 12.6 GM/dL (10.7-15.3) 02/23/17 06:00 Hct 37.7 % (32.4-45.2) 02/23/17 06:00 MCV 90.9 fl (80-96) 02/23/17 06:00 MCH 30.3 pg (25.7-33.7) 02/23/17 06:00 MCHC 33.4 g/dl (32.0-36.0) 02/23/17 06:00 RDW 16.1 % (11.6-15.6) H D 02/23/17 06:00 Plt Count 199 K/MM3 (134-434) 02/23/17 06:00 MPV 11.0 fl (7.5-11.1) 02/23/17 06:00 Sodium 141 mmol/L (136-145) 02/23/17 06:00 Potassium 3.4 mmol/L (3.5-5.1) L D 02/23/17 06:00 Chloride 105 mmol/L (98-107) 02/23/17 06:00 Carbon Dioxide 29 mmol/L (21-32) 02/23/17 06:00 Anion Gap 7 (8-16) L 02/23/17 06:00 BUN 6 mg/dL (7-18) L D 02/23/17 06:00 Creatinine 0.6 mg/dL (0.55-1.02) 02/23/17 06:00 Creat Clearance w eGFR > 60 (>60) 02/23/17 06:00 Random Glucose 96 mg/dL (74-106) 02/23/17 06:00 Calcium 8.6 mg/dL (8.5-10.1) 02/23/17 06:00 Total Bilirubin 0.4 mg/dL (0.2-1.0) D 02/23/17 06:00 AST 17 U/L (15-37) D 02/23/17 06:00 ALT 24 U/L (12-78) D 02/23/17 06:00 Alkaline Phosphatase 52 U/L (45-117) 02/23/17 06:00 Total Protein 6.4 g/dl (6.4-8.2) 02/23/17 06:00 Albumin 3.5 g/dl (3.4-5.0) 02/23/17 06:00 Urine Color Elissa 02/22/17 15:00 Urine Appearance Slcloudy 02/22/17 15:00 Urine pH 5.0 (5.0-8.0) 02/22/17 15:00 Ur Specific [place] >= 1.030 (1.005-1.025) H 02/22/17 15:00 Urine Protein Negative (NEGATIVE) 02/22/17 15:00 Urine Glucose (UA) Negative (NEGATIVE) 02/22/17 15:00 Urine Ketones Negative (NEGATIVE) 02/22/17 15:00 Urine Blood Negative (NEGATIVE) 02/22/17 15:00 Urine Nitrite Negative (NEGATIVE) 02/22/17 15:00 Urine Bilirubin Negative (NEGATIVE) 02/22/17 15:00 Urine Urobilinogen 2.0 mg/dL (0.2-1.0) H 02/22/17 15:00 Ur Leukocyte Esterase Negative (NEGATIVE) 02/22/17 15:00 RPR Titer Reactive 1:1 (NONREACTIVE) H 02/23/17 06:00 T.pallidum Ab (MHA) Previously reactive (NONREACTIVE) 02/23/17 06:00 Assessment: 02/26/17 09:34 withdrawal symptom Plan: continue detox,bicillin 2.4 million unit im,continue flagyl 500mgs po tid, diflucan 150 mgs po one pill,continue monistat vaginal suppository advise follow up with paving and surfacing labourer after discharge discharge in am
[2017-02-26] MEDS ORDERED: METHADONE HCL 10 MG TABLET (FOR DETOX USE ONLY) PO ONE (10:00)
[2017-02-26] MEDS: POTASSIUM CHLORIDE TABS 20 MEQ TABLET.ER (FP) PO SCH (10:11)
[2017-02-26] MEDS: PRENATAL VITAMINS W/ FOLIC ACID TABLET (FP) PO SCH (10:11)
[2017-02-26] MEDS: cloNIDine HCL 0.1 MG TABLET PO SCH ×2 (10:11→22:03)
[2017-02-26] MEDS: NICOTINE 21 MG/24 HOURS TOPICAL PATCH TD SCH (10:14)
[2017-02-26] MEDS: IBUPROFEN 400 MG TABLET (FP) PO PRN (14:42)
[2017-02-26] MEDS: CYCLOBENZAPRINE HCL 10 MG TABLET (FP) PO PRN (21:06)
[2017-02-26] MEDS: THIAMINE HCL 100 MG TABLET (FP) PO SCH (22:02)
[2017-02-26] MEDS: QUEtiapine FUMARATE 100 MG TABLET (FP) PO SCH (22:02)
[2017-02-26] MEDS: MICONAZOLE NITRATE 100 MG SUPP SUPP.VAG PV SCH (22:03)
[2017-02-27] MEDS: metroNIDAZOLE 250 MG TABLET PO SCH (05:21)
[2017-02-27] MEDS: CYCLOBENZAPRINE HCL 10 MG TABLET (FP) PO PRN (05:24)
[2017-02-27] MEDS ORDERED: METHADONE HCL 5 MG TABLET (FOR DETOX USE ONLY) PO ONE (06:00)
[2017-02-27 06:15] VITALS: TEMP 97.3
--- NOTE | 2017-02-27 08:28 | DS ---
[facility] Detox Discharge Summary Admission Date: 02/22/17 Discharge Date: 02/27/17 - History Present History: Cocaine Dependence, Opioid Dependence Additional Comments: follow up with after care program as arrangement Pertinent Past History: nicotine dependence weight loss history of syphilis - Physical Exam Results Vital Signs: Vital Signs Temperature 97.3 F L 02/27/17 06:00 Pulse Rate 65 02/27/17 06:00 Respiratory Rate 18 02/27/17 06:00 Blood Pressure 95/55 02/27/17 06:00 O2 Sat by Pulse Oximetry (%) Pertinent Admission Physical Exam Findings: withdrawal symptom - Treatment Hospital Course: Detox Protocol Followed, Detoxed Safely, Responded well, Discharged Condition Good Patient has Accepted a Rehab Referral to: declined - Medication Discharge Medications: Ambulatory Orders Gabapentin [Neurontin -] 400 mg PO TID 11/16/16 Quetiapine Fumarate "Xr" [Seroquel Xr -] 400 mg PO HS 11/16/16 Quetiapine Fumarate [Seroquel -] 200 mg PO AM 02/22/17 - Diagnosis (1) Opioid dependence with withdrawal Current Visit: Yes Status: Acute (2) Cocaine dependence Current Visit: Yes Status: Acute (3) Nicotine dependence Current Visit: Yes Status: Acute Qualifiers: Nicotine product type: cigarettes Substance use status: in withdrawal Qualified Code(s): F17.213 - Nicotine dependence, cigarettes, with withdrawal (4) Vaginitis Current Visit: No Status: Acute Qualifiers: Chronicity: subacute Qualified Code(s): N76.1 - Subacute and chronic vaginitis (5) Weight loss Current Visit: No Status: Acute (6) Alcohol dependence Current Visit: Yes Status: Acute (7) Hypokalemia Current Visit: Yes Status: Acute - AMA Did Patient Leave Against Medical Advice: No
[2017-02-27] MEDS: PRENATAL VITAMINS W/ FOLIC ACID TABLET (FP) PO SCH (09:57)
[2017-02-27] MEDS: cloNIDine HCL 0.1 MG TABLET PO SCH (09:57)
[2017-02-27] MEDS: POTASSIUM CHLORIDE TABS 20 MEQ TABLET.ER (FP) PO SCH (09:58)
[2017-02-27] MEDS: NICOTINE 21 MG/24 HOURS TOPICAL PATCH TD SCH (09:58)
[2017-02-27 10:21] VITALS: BP 107/67; PULSE 75
== END 2017-02-27 10:00 | disposition home or self-care (01) | DRG 897 ==
LOC: YASAS 09:48 → Y6N 12:05
PROVIDERS: ADMIT Internal Medicine; ATTEND Internal Medicine
PROC: HZ2ZZZZ Detoxification Services for Substance Abuse Treatment (ICD-10-PCS; principal; 2017-02-27)
DX: F11.23 Opioid dependence with withdrawal (principal); F14.20 Cocaine dependence, uncomplicated; F10.20 Alcohol dependence, uncomplicated; F12.20 Cannabis dependence, uncomplicated; F17.213 Nicotine dependence, cigarettes, with withdrawal; F31.9 Bipolar disorder, unspecified; F19.24 Other psychoactive substance dependence with psychoactive substance-induced mood disorder; E87.6 Hypokalemia; N76.1 Subacute and chronic vaginitis; R63.4 Abnormal weight loss; Z68.23 Body mass index [BMI] 23.0-23.9, adult; Z91.5 Personal history of self-harm
CPT/HCPCS: 36415; 80053; 81003; 85027; 86593; 86780; 93005; 93010

== ENCOUNTER 2017-05-07 10:44 | Inpatient (IN) | payer OTHER ==
[2017-05-07 11:46] VITALS: BMI 23.3
--- NOTE | 2017-05-07 14:11 | HP ---
COWS - Scale Resting Pulse: 1= ND 81-100 Sweatin=Flushed/Facial Moisture Restless Observation: 1= Difficult to Sit Still Pupil Size: 0= Normal to Room Light Bone or Joint Aches: 2= Severe Diffuse Aches Runny Nose/ Eye Tearin= Runny Nose/Eyes GI Upset > 30mins: 2= Nausea/Diarrhea Tremor Observation: 2= Slight Tremor Visible Yawning Observation: 1= 1-2x During Session Anxiety or Irritability: 2=Irritable/Anxious Goose Flesh Skin: 3=Piloerection COWS Score: 18 Admission ROS S - HPI Chief Complaint: "I'm here for Heroin use, it is really bad. I also need to go to Rehab. I need my life back." Patient is here to detox from Heroin. Allergies/Adverse Reactions: Allergies Allergy/AdvReac Type Severity Reaction Status Date / Time No Known Allergies Allergy Verified 05/07/17 12:37 History of Present Illness: Pt. is a 46 YO female here to Detox from Heroin. Pt. has had several previous Detox admissions at [facility]; most recent: 03/2017. Patient started using Heroin in 08/2016. Exam Limitations: No Limitations - Ebola screening Have you traveled outside of the country in the last 21 days: No Have you had contact with anyone from an Ebola affected area: No Have you been sick,other than usual withdrawal symptoms: No Do you have a fever: No - Review of Systems Constitutional: Chills, Diaphoresis, Fever, Loss of Appetite, Malaise, Night Sweats, Changes in sleep, Unintentional Wgt. Loss (Lost approx. 45 lbs. over last 8 months.) EENT: reports: Blurred Vision, Nose Congestion, Sinus Pressure Respiratory: reports: SOB with Exertion, Productive cough Cardiac: reports: Palpitations GI: reports: Diarrhea, Nausea, Poor Appetite, Vomiting, Indigestion, Abdominal cramping : reports: No Symptoms Reported Musculoskeletal: reports: Back Pain, Joint Pain, Muscle Pain, Neck Pain, Joint Stiffness Integumentary: reports: Sweating Neuro: reports: Headache, Numbness (Fingertips of bilateral hands.), Tingling ( Fingertips of bilateral hands.), Tremors Endocrine: reports: No Symptoms Reported Hematology: reports: No Symptoms Reported Psychiatric: reports: Judgement Intact, Mood/Affect Appropiate, Orientated x3, Anxious, Depressed (And Anxiety, Takes meds.) Other Systems: Reviewed and Negative Patient History - Patient Medical History Hx Anemia: No Hx Asthma: No Hx Chronic Obstructive Pulmonary Disease (COPD): No Hx Cancer: No Hx Cardiac Disorders: No Hx Congestive Heart Failure: No Hx Hypertension: No Hx Hypercholesterolemia: No Hx Pacemaker: No HX Cerebrovascular Accident: No Hx Seizures: No Hx Dementia: No Hx Diabetes: No Hx Gastrointestinal Disorders: No Hx Liver Disease: No Hx Genitourinary Disorders: No Hx Sexually Transmitted Disorders: No Hx Renal Disease (ESRD): No Hx Thyroid Disease: No Hx Human Immunodeficiency Virus (HIV): No (Last Tested: 08/2015: NEGATIVE.) Hx Hepatitis C: No (Last Tested approx. 4 years ago: NEGATIVE.) Hx Depression: Yes (On meds.) Hx Suicide Attempt: Yes (Pt tried to cut wrist at age 17 yrs old. PATIENT DENIES CURRENT SI / HI.) Hx Bipolar Disorder: Yes (On meds.) Hx Schizophrenia: No Other Medical History: DENIES. - Patient Surgical History Past Surgical History: No Hx Neurologic Surgery: No Hx Cataract Extraction: No Hx Cardiac Surgery: No Hx Lung Surgery: No Hx Breast Surgery: No Hx Breast Biopsy: No Hx Abdominal Surgery: Yes (hernia repair, @ 2008.) Hx Appendectomy: No Hx Cholecystectomy: No Hx Genitourinary Surgery: No Hx Section: No Hx Orthopedic Surgery: No Anesthesia Reaction: No - PPD History Previous Implant?: Yes Documented Results: Negative w/proof Implanted On Prior [facility] Admission?: Yes Date: 11/18/16 Results: 0 mm PPD to be Administered?: No - Reproductive History Patient is a Female of Child Bearing Age (11 -55 yrs old): Yes Last Menstrual Period: 05/05/17 Patient : No - Smoking Cessation Smoking history: Current every day smoker Have you smoked in the past 12 months: Yes Aproximately how many cigarettes per day: 20 Cigars Per Day: 0 Hx Chewing Tobacco Use: No Initiated information on smoking cessation: Yes 'Breaking Loose' booklet given: 05/07/17 (GIVEN ON UNIT.) - Substance & Tx. History Hx Alcohol Use: No Hx Substance Use: Yes Substance Use Type: Cocaine, Heroin, Marijuana Hx Substance Use Treatment: Yes (Previous Detox admissions at [facility]; Last: 2016.) - Substances Abused Heroin Route: Injection Frequency: Daily Amount used: 30 bags Age of first use: 46 Date of Last Use: 05/07/17 Cocaine Route: Inhalation Frequency: Daily Amount used: $50 Age of first use: 46 Date of Last Use: 05/05/17 Marijuana/Hashish Route: Smoking Frequency: Daily Amount used: 1 joint Age of first use: 17 Date of Last Use: 05/07/17 Family Disease History - Family Disease History Family Disease History: Other: Father (, 'old age'), Mother (, etoh, sepsis), Brother (no contact), Sister (no contact) Admission Physical Exam S - Vital Signs Vital Signs: Vital Signs - 24 hr 05/07/17 11:43 Temperature 97.2 F L Pulse Rate 89 Respiratory 20 Rate Blood Pressure 118/66 - Physical General Appearance: Yes: Nourished, Appropriately Dressed, Mild Distress, Tremorous, Sweating, Anxious HEENTM: Yes: Hearing grossly Normal, Normocephalic, Normal Voice, ZEESHAN, Pharynx Normal Respiratory: Yes: Chest Non-Tender, No Respiratory Distress, No Accessory Muscle Use, Wheezing (Right Side.) Neck: Yes: No masses,lesions,Nodules, Supple, Trachea in good position Breast: Yes: Breast Exam Deferred Cardiology: Yes: Regular Rhythm, Regular Rate, S1, S2 Abdominal: Yes: Normal Bowel Sounds, Non Tender, Flat, Soft Genitourinary: Yes: Vaginal Discharge (Yellow Color, Foul Odor.) Back: Yes: Decreased Range of Motion Musculoskeletal: Yes: Gait Steady, Back pain, Joint Stiffness, Muscle Pain Extremities: Yes: Tremors Neurological: Yes: Fully Oriented, Alert, Normal Mood/Affect, Normal Response Integumentary: Yes: Normal Color, Warm, Diaphoresis Lymphatic: Yes: Within Normal Limits - Diagnostic (1) Nicotine dependence Current Visit: Yes Status: Chronic Qualifiers: Nicotine product type: cigarettes Substance use status: uncomplicated Qualified Code(s): F17.210 - Nicotine dependence, cigarettes, uncomplicated; F17.210 - Nicotine dependence, cigarettes, uncomplicated (2) Opioid dependence with withdrawal Current Visit: Yes Status: Acute (3) Cocaine dependence Current Visit: Yes Status: Acute Qualifiers: Substance use status: uncomplicated Qualified Code(s): F14.20 - Cocaine dependence, uncomplicated; F14.20 - Cocaine dependence, uncomplicated; F14.20 - Cocaine dependence, uncomplicated (4) Vaginal discharge Current Visit: Yes Status: Acute (5) Cannabis dependence, uncomplicated Current Visit: Yes Status: Acute (6) History of depression Current Visit: Yes Status: Acute (7) History of bipolar disorder Current Visit: Yes Status: Acute Cleared for Admission [facility] - Detox or Rehab [facility] Level of Care: Medically Managed Detox Regimen/Protocol: Methadone [facility] Breath Alcohol Content Breath Alcohol Content: 0 Urine Pregancy Test - Result Urine Test Results: Negative- NO Line Present Urine Drug Screen - Results Drug Screen Negative: No Urine Drug Screen Results: THC-Marijuana, SWETA-Cocaine, OPI-Opiates, MTD- Methadone, TCA-Tricyclic Antidepress
[2017-05-07] MEDS ORDERED: MAGNESIUM HYDROX 2400MG/30ML ORAL SUSPENSION 30 ML CUP PO PRN (14:52)
[2017-05-07] MEDS ORDERED: MAGNESIUM CITRATE 300 ML BOTTLE PO PRN (14:52)
[2017-05-07] MEDS ORDERED: ACETAMINOPHEN 325 MG TABLET (FP) PO PRN (14:52)
[2017-05-07] MEDS ORDERED: guaiFENesin/D-METHORPHAN HB 10 ML UNIT-DOSE CUPS PO PRN (14:52)
[2017-05-07] MEDS ORDERED: LOPERAMIDE HCL 2 MG CAPSULE PO PRN (14:52)
[2017-05-07] MEDS ORDERED: MAG HYDROX/AL HYDROX/SIMETH 30 ML UNIT-DOSE CUP PO PRN (14:52)
[2017-05-07] MEDS ORDERED: IBUPROFEN 400 MG TABLET (FP) PO PRN (14:52)
[2017-05-07] MEDS ORDERED: P-EPHED 60MG/TRIPROLIDI 2.5MG TABLET PO PRN (14:52)
[2017-05-07] MEDS ORDERED: MENTHOL/PHENOL 1 EACH UD MM PRN (14:52)
[2017-05-07] MEDS ORDERED: hydrOXYzine PAMOATE 50 MG CAPSULE (FP) PO PRN (14:52)
[2017-05-07] MEDS ORDERED: NICOTINE POLACRILEX 2 MG GUM BUC PRN (14:52)
[2017-05-07] MEDS ORDERED: METHADONE HCL 10 MG TABLET (FOR DETOX USE ONLY) PO ONE ×2 (15:07→23:00)
[2017-05-07] MEDS: diazePAM 5 MG TABLET PO PRN ×2 (15:36→22:25)
[2017-05-07] MEDS: NICOTINE 21 MG/24 HOURS TOPICAL PATCH TD SCH (15:37)
--- NOTE | 2017-05-07 15:38 | CONSULT ---
[facility] Psychiatric Consult - Data Date of interview: 05/07/17 Admission source: [facility] Identifying data: One of multiple admissions to [facility] for this 46 y/o female seeking detox treatment on for marihuana,alcohol, cocaine and heroin dependence.Patient is single,a mother of one,undomiciled, unemployed and supported on SSI benefits. Substance Abuse History: Reviewed with patient in this session.Ms Maza admits to heavy and continuous use of marihuana,cocaine and heroin (years of abuse).See this [facility] report for details. Smoking history: Current every day smoker. Have you smoked in the past 12 months: Yes. Aproximately how many cigarettes per day: 20. Cigars Per Day: 0. Hx Chewing Tobacco Use: No. Initiated information on smoking cessation: Yes. 'Breaking Loose' booklet given : 05/07/17 (GIVEN ON UNIT.). - Substance & Tx. History. Hx Alcohol Use: No. Hx Substance Use: Yes. Substance Use Type: Cocaine, Heroin, Marijuana. Hx Substance Use Treatment: Yes (Previous Detox admissions at [facility]; Last: 03/2017.) . - Substances Abused. Heroin. Route: Injection. Frequency: Daily. Amount used: 30 bags. Age of first use: 46. Date of Last Use: 05/07/17. Cocaine. Route: Inhalation. Frequency: Daily. Amount used: $50. Age of first use: 46. Date of Last Use: 05/05/17. Marijuana/Hashish. Route: Smoking. Frequency: Daily. Amount used: 1 joint. Age of first use: 17. Date of Last Use: 05/07/17 Medical History: History of abdominal herniorraphy and past treatment for syphilis. Psychiatric History: History of one psychiatric hospitalization (years ago) .Patient states that she no longer remembers the name of the institution.Diagnosed with Bipolar Disorder.Patient indicates that she is maintained on seroquel 600 mg/hs.Ms Maza is a poor and unreliable historian. " I have not taken my medication for a while.I have no idea of when I took it for the last time.Maybe some months ago,I am not sure." History of suicide attempts (wrist-cutting). Physical/Sexual Abuse/Trauma History: Patient declines to discuss this domain in this interview. Additional Comment: Urine Drug Screen Results: THC-Marijuana, SWETA-Cocaine, OPI- Opiates, MTD-Methadone, TCA-Tricyclic Antidepressant.Noted. Mental Status Exam - Mental Status Exam Alert and Oriented to: Time, Place, Person Cognitive Function: Grossly Intact Patient Appearance: Unkempt, Disheveled Mood: Nervous, Anxious Affect: Mood Congruent Patient Behavior: Fatigued, Impulsive (overfriendly) Speech Pattern: Clear, Inappropriate (at times ;prone to profane language) Voice Loudness: Mildly Loud Thought Process: Goal Oriented Thought Disorder: Not Present Hallucinations: Denies Suicidal Ideation: Denies Homicidal Ideation: Denies Insight/Judgement: Poor Sleep: Poorly, Difficulty falling asleep Appetite: Good Muscle strength/Tone: Normal Gait/Station: Normal Psychiatric Findings - Problem List ([place] 1, 2,3) (1) Opioid dependence with withdrawal Current Visit: Yes Status: Acute (2) Cannabis dependence, uncomplicated Current Visit: Yes Status: Acute (3) Cocaine dependence Current Visit: Yes Status: Acute Qualifiers: Substance use status: uncomplicated Qualified Code(s): F14.20 - Cocaine dependence, uncomplicated; F14.20 - Cocaine dependence, uncomplicated; F14.20 - Cocaine dependence, uncomplicated (4) Nicotine dependence Current Visit: Yes Status: Chronic Qualifiers: Nicotine product type: cigarettes Substance use status: uncomplicated Qualified Code(s): F17.210 - Nicotine dependence, cigarettes, uncomplicated; F17.210 - Nicotine dependence, cigarettes, uncomplicated (5) Substance induced mood disorder Current Visit: Yes Status: Acute (6) History of bipolar disorder Current Visit: No Status: Chronic - Initial Treatment Plan Initial Treatment Plan: Psychoeducation.Detoxification.Seroquel 100 mg po hs ( reduced dose).Side effects/benefits discussed with patient.She agrees with this careplan.Observation.
--- NOTE | 2017-05-07 16:05 | CONSULT ---
[facility] Psychiatric Consult - Data Date of interview: 05/07/17 Admission source: This is 46 years old female with no psychiatric hospitalization history int Identifying data: Cannabis, Opioids. Alcohol, Xanax and Nicotine Substance Abuse History: Urine Drug Screen Results: THC-Marijuana, SWETA-Cocaine, OPI-Opiates, MTD-Methadone, TCA-Tricyclic Antidepress. - Smoking Cessation. Smoking history: Current every day smoker. Have you smoked in the past 12 months: Yes. Aproximately how many cigarettes per day: 20. Cigars Per Day: 0. Hx Chewing Tobacco Use: No. Initiated information on smoking cessation: Yes. 'Breaking Loose' booklet given: 05/07/17 (GIVEN ON UNIT.). - Substance & Tx. History. Hx Alcohol Use: No. Hx Substance Use: Yes. Substance Use Type: Cocaine, Heroin, Marijuana. Hx Substance Use Treatment: Yes (Previous Detox admissions at [facility]; Last: 03/2017.). - Substances Abused. Heroin. Route: Injection. Frequency: Daily. Amount used: 30 bags. Age of first use: 46. Date of Last Use: 05/07/17. Cocaine. Route: Inhalation. Frequency: Daily. Amount used: $50. Age of first use: 46. Date of Last Use: 05/05/17. Marijuana/Hashish. Route: Smoking. Frequency: Daily. Amount used: 1 joint. Age of first use: 17. Date of Last Use: 05/07/17 Medical History: Hypokalemia, Weight loss history, Muscle neuropathy Psychiatric History: Patient reports history of Bipolae Disorder Physical/Sexual Abuse/Trauma History: Denies Additional Comment: Urine Drug Screen Results: THC-Marijuana, SWETA-Cocaine, OPI- Opiates, MTD-Methadone, TCA-Tricyclic Antidepress
[2017-05-07 17:21] LABS: MCH 30.8 pg (25.7-33.7); MCHC 33.8 g/dl (32.0-36.0); MEAN CELL VOLUME 91.2 fl (80-96); MEAN PLT VOLUME 10.3 fl (7.5-11.1); PLATELET COUNT 212 K/MM3 (134-434); RDW 15.1 % (11.6-15.6); WHITE BLOOD COUNT 8.5 K/mm3 (4.0-10.0)
[2017-05-07 18:53] LABS: ALBUMIN 3.9 g/dl (3.4-5.0); ALK PHOS 60 U/L (45-117); ANION GAP 11 (8-16); BILIRUBIN,TOTAL 0.3 mg/dL (0.2-1.0); CALCIUM 8.4 mg/dL (8.5-10.1); CO2 25 mmol/L (21-32); CREATININE 0.7 mg/dL (0.55-1.02); GLUCOSE,RANDOM 76 mg/dL (74-106); SGOT/AST 21 U/L (15-37); SGPT/ALT 50 U/L (12-78); TOT PROT 7.2 g/dl (6.4-8.2)
[2017-05-07 21:12] LABS: URINE APPEARANCE CLEAR; URINE BILIRUBIN NEGATIVE (NEGATIVE); URINE BLOOD NEGATIVE (NEGATIVE); URINE COLOR YELLOW; URINE GLUCOSE (UA) NEGATIVE (NEGATIVE); URINE KETONE NEGATIVE (NEGATIVE); URINE NITRITE NEGATIVE (NEGATIVE); URINE PROTEIN NEGATIVE (NEGATIVE); URINE UROBILINOGEN 0.2 mg/dL (0.2-1.0)
[2017-05-07 21:41] LABS: HIV 1 & 2 AB NEGATIVE; HIV 1 AGp24 NEGATIVE
[2017-05-07] MEDS: THIAMINE HCL 100 MG TABLET (FP) PO SCH (22:25)
[2017-05-07] MEDS: CLOTRIMAZOLE 1% VAGINAL CREAM WITH APPLICATOR 45 GM TUBE VG SCH (22:26)
[2017-05-07] MEDS: metroNIDAZOLE 250 MG TABLET PO SCH (22:26)
[2017-05-07] MEDS: QUEtiapine FUMARATE 100 MG TABLET (FP) PO SCH (22:26)
[2017-05-07 23:10] LABS: URINE LEUK ESTERASE Negative (NEGATIVE)
[2017-05-08] MEDS ORDERED: METHADONE HCL 10 MG TABLET (FOR DETOX USE ONLY) PO ONE (10:00)
[2017-05-08] MEDS: diazePAM 5 MG TABLET PO PRN ×3 (10:34→22:28)
[2017-05-08] MEDS: PRENATAL VITAMINS W/ FOLIC ACID TABLET (FP) PO SCH (10:34)
[2017-05-08] MEDS: metroNIDAZOLE 250 MG TABLET PO SCH ×2 (10:34→22:28)
[2017-05-08] MEDS: NICOTINE 21 MG/24 HOURS TOPICAL PATCH TD SCH (10:43)
--- NOTE | 2017-05-08 11:09 | PN ---
S COWS - Scale Resting Pulse: 0= [place] 80 or Below Sweatin=Flushed/Facial Moisture Restless Observation: 0= Sits Still Pupil Size: 0= Normal to Room Light Bone or Joint Aches: 2= Severe Diffuse Aches Runny Nose/ Eye Tearin= Runny Nose/Eyes GI Upset > 30mins: 0= None Tremor Observation of Outstretched Hands: 1= Tremor [place], Not Seen Yawning Observation: 2= >3x During Session Anxiety or Irritability: 2=Irritable/Anxious Goose Flesh Skin: 0=Smooth Skin COWS Score: 11 S Progress Note (SOAP) Subjective: agitation sweats chills interrupted sleep tired Objective: 05/08/17 11:08 Vital Signs Temperature 98.0 F 05/08/17 09:29 Pulse Rate 70 05/08/17 09:29 Respiratory Rate 18 05/08/17 09:29 Blood Pressure 98/71 05/08/17 09:29 O2 Sat by Pulse Oximetry (%) Laboratory Tests 05/07/17 05/07/17 05/07/17 14:15 15:40 15:40 WBC 8.5 D RBC 4.14 Hgb 12.7 Hct 37.7 MCV 91.2 MCH 30.8 MCHC 33.8 RDW 15.1 Plt Count 212 MPV 10.3 Sodium 141 Potassium 4.1 Chloride 105 Carbon Dioxide 25 Anion Gap 11 BUN 12 Creatinine 0.7 Creat Clearance w eGFR > 60 Random Glucose 76 Calcium 8.4 L Total Bilirubin 0.3 D AST 21 D ALT 50 D Alkaline Phosphatase 60 Total Protein 7.2 Albumin 3.9 Urine Color Urine Appearance Urine pH Ur Specific [place] Urine Protein Urine Glucose (UA) Urine Ketones Urine Blood Urine Nitrite Urine Bilirubin Urine Urobilinogen Ur Leukocyte Esterase HIV 1&2 Antibody Screen Negative HIV P24 Antigen Negative 05/07/17 15:40 WBC RBC Hgb Hct MCV MCH MCHC RDW Plt Count MPV Sodium Potassium Chloride Carbon Dioxide Anion Gap BUN Creatinine Creat Clearance w eGFR Random Glucose Calcium Total Bilirubin AST ALT Alkaline Phosphatase Total Protein Albumin Urine Color Yellow Urine Appearance Clear Urine pH 5.0 Ur Specific [place] >= 1.030 Urine Protein Negative Urine Glucose (UA) Negative Urine Ketones Negative Urine Blood Negative Urine Nitrite Negative Urine Bilirubin Negative Urine Urobilinogen 0.2 Ur Leukocyte Esterase Negative HIV 1&2 Antibody Screen HIV P24 Antigen aaox3 lying in bed no acute distress Assessment: 05/08/17 11:09 withdrawal sx Plan: continue detox increase fluids
[2017-05-08] MEDS ORDERED: FLU VACCINE QUAD 60 MCG/0.5 ML (MDV 17-18) IM ONE (12:00)
--- NOTE | 2017-05-08 21:38 | EKG ---
Test Reason : Blood Pressure : / mmHG Vent. Rate : 075 BPM Atrial Rate : 075 BPM P-R Int : 134 ms QRS Dur : 094 ms QT Int : 394 ms P-R-T Axes : 066 071 056 degrees QTc Int : 439 ms NORMAL SINUS RHYTHM MODERATE VOLTAGE CRITERIA FOR LVH, MAY BE NORMAL VARIANT BORDERLINE ECG WHEN COMPARED WITH ECG OF 31-MAR-2017 15:44, VENT. RATE HAS INCREASED BY 26 BPM Confirmed by SEE ISSA MD ([id number]) on 05/08/2017 9:38:16 PM Referred By: Confirmed By:SEE ISSA MD
[2017-05-08] MEDS: THIAMINE HCL 100 MG TABLET (FP) PO SCH (22:27)
[2017-05-08] MEDS: QUEtiapine FUMARATE 100 MG TABLET (FP) PO SCH (22:27)
[2017-05-08] MEDS: CLOTRIMAZOLE 1% VAGINAL CREAM WITH APPLICATOR 45 GM TUBE VG SCH (22:28)
--- NOTE | 2017-05-09 09:42 | PN ---
S COWS - Scale Resting Pulse: 0= [place] 80 or Below Sweatin=Flushed/Facial Moisture Restless Observation: 0= Sits Still Pupil Size: 0= Normal to Room Light Bone or Joint Aches: 2= Severe Diffuse Aches Runny Nose/ Eye Tearin= Nasal Congestion GI Upset > 30mins: 1= Stomach Cramp Tremor Observation of Outstretched Hands: 2= Slight Tremor Visible Yawning Observation: 2= >3x During Session Anxiety or Irritability: 2=Irritable/Anxious Goose Flesh Skin: 0=Smooth Skin COWS Score: 12 S Progress Note (SOAP) Subjective: stomach ache sweats agitation tired Objective: 05/09/17 09:41 Vital Signs Temperature 96 F L 05/09/17 07:59 Pulse Rate 80 05/09/17 07:59 Respiratory Rate 18 05/09/17 07:59 Blood Pressure 120/69 05/09/17 07:59 O2 Sat by Pulse Oximetry (%) Laboratory Tests 05/07/17 05/07/17 05/07/17 14:15 15:40 15:40 WBC 8.5 D RBC 4.14 Hgb 12.7 Hct 37.7 MCV 91.2 MCH 30.8 MCHC 33.8 RDW 15.1 Plt Count 212 MPV 10.3 Sodium 141 Potassium 4.1 Chloride 105 Carbon Dioxide 25 Anion Gap 11 BUN 12 Creatinine 0.7 Creat Clearance w eGFR > 60 Random Glucose 76 Calcium 8.4 L Total Bilirubin 0.3 D AST 21 D ALT 50 D Alkaline Phosphatase 60 Total Protein 7.2 Albumin 3.9 Urine Color Urine Appearance Urine pH Ur Specific [place] Urine Protein Urine Glucose (UA) Urine Ketones Urine Blood Urine Nitrite Urine Bilirubin Urine Urobilinogen Ur Leukocyte Esterase RPR Titer T.pallidum Ab (A) HIV 1&2 Antibody Screen Negative HIV P24 Antigen Negative 05/07/17 05/07/17 15:40 15:40 WBC RBC Hgb Hct MCV MCH MCHC RDW Plt Count MPV Sodium Potassium Chloride Carbon Dioxide Anion Gap BUN Creatinine Creat Clearance w eGFR Random Glucose Calcium Total Bilirubin AST ALT Alkaline Phosphatase Total Protein Albumin Urine Color Yellow Urine Appearance Clear Urine pH 5.0 Ur Specific [place] >= 1.030 Urine Protein Negative Urine Glucose (UA) Negative Urine Ketones Negative Urine Blood Negative Urine Nitrite Negative Urine Bilirubin Negative Urine Urobilinogen 0.2 Ur Leukocyte Esterase Negative RPR Titer Reactive 1:1 H T.pallidum Ab (MHA) Previously reactive HIV 1&2 Antibody Screen HIV P24 Antigen aaox3 ambulating no acute distress Assessment: 05/09/17 09:41 withdrawal sx Plan: continue detox increase fluids
[2017-05-09] MEDS ORDERED: METHADONE HCL 5 MG TABLET (FOR DETOX USE ONLY) PO ONE (10:00)
[2017-05-09] MEDS: diazePAM 5 MG TABLET PO PRN ×2 (11:14→22:32)
[2017-05-09] MEDS: PRENATAL VITAMINS W/ FOLIC ACID TABLET (FP) PO SCH (11:14)
[2017-05-09] MEDS: metroNIDAZOLE 250 MG TABLET PO SCH ×2 (11:14→22:32)
[2017-05-09] MEDS: NICOTINE 21 MG/24 HOURS TOPICAL PATCH TD SCH (11:16)
[2017-05-09] MEDS: THIAMINE HCL 100 MG TABLET (FP) PO SCH (22:31)
[2017-05-09] MEDS: QUEtiapine FUMARATE 100 MG TABLET (FP) PO SCH (22:32)
[2017-05-09] MEDS: CLOTRIMAZOLE 1% VAGINAL CREAM WITH APPLICATOR 45 GM TUBE VG SCH (22:33)
[2017-05-10] MEDS ORDERED: METHADONE HCL 5 MG TABLET (FOR DETOX USE ONLY) PO ONE (10:00)
[2017-05-10] MEDS: metroNIDAZOLE 250 MG TABLET PO SCH ×2 (10:28→23:38)
[2017-05-10] MEDS: PRENATAL VITAMINS W/ FOLIC ACID TABLET (FP) PO SCH (10:29)
[2017-05-10] MEDS: NICOTINE 21 MG/24 HOURS TOPICAL PATCH TD SCH (10:29)
--- NOTE | 2017-05-10 10:31 | PN ---
[facility] Progress Note (SOAP) Subjective: alert,irritable,anxious,interrupted sleep,tremor,pain in the body and back Objective: 05/10/17 10:30 Vital Signs Temperature 97.9 F 05/10/17 10:12 Pulse Rate 85 05/10/17 10:12 Respiratory Rate 18 05/10/17 10:12 Blood Pressure 98/70 05/10/17 10:12 O2 Sat by Pulse Oximetry (%) Assessment: 05/10/17 10:30 withdrawal symptom Plan: continue detox
[2017-05-10] MEDS: diazePAM 5 MG TABLET PO PRN (13:02)
[2017-05-10 22:56] VITALS: BP 106/67; PULSE 87; TEMP 97.1
[2017-05-10] MEDS: QUEtiapine FUMARATE 100 MG TABLET (FP) PO SCH (23:39)
[2017-05-10] MEDS: THIAMINE HCL 100 MG TABLET (FP) PO SCH (23:39)
[2017-05-10] MEDS: CLOTRIMAZOLE 1% VAGINAL CREAM WITH APPLICATOR 45 GM TUBE VG SCH (23:39)
--- NOTE | 2017-05-11 00:14 | DS ---
[facility] Detox Discharge Summary Admission Date: 05/07/17 Discharge Date: 05/10/17 - History Present History: Cannabis Dependence, Cocaine Dependence, Opioid Dependence Additional Comments: face to face with patient discuss risks of none compliance with detox regiment, encourage follow up with aftercare educating on complications of substance use disorder and treatment options - Physical Exam Results Vital Signs: Vital Signs Temperature 97.1 F L 05/10/17 22:56 Pulse Rate 87 05/10/17 22:56 Respiratory Rate 18 05/10/17 22:56 Blood Pressure 106/67 05/10/17 22:56 O2 Sat by Pulse Oximetry (%) Pertinent Admission Physical Exam Findings: withdrawal sx Laboratory Last Values WBC 8.5 K/mm3 (4.0-10.0) D 05/07/17 15:40 RBC 4.14 M/mm3 (3.60-5.2) 05/07/17 15:40 Hgb 12.7 GM/dL (10.7-15.3) 05/07/17 15:40 Hct 37.7 % (32.4-45.2) 05/07/17 15:40 MCV 91.2 fl (80-96) 05/07/17 15:40 MCH 30.8 pg (25.7-33.7) 05/07/17 15:40 MCHC 33.8 g/dl (32.0-36.0) 05/07/17 15:40 RDW 15.1 % (11.6-15.6) 05/07/17 15:40 Plt Count 212 K/MM3 (134-434) 05/07/17 15:40 MPV 10.3 fl (7.5-11.1) 05/07/17 15:40 Sodium 141 mmol/L (136-145) 05/07/17 15:40 Potassium 4.1 mmol/L (3.5-5.1) 05/07/17 15:40 Chloride 105 mmol/L (98-107) 05/07/17 15:40 Carbon Dioxide 25 mmol/L (21-32) 05/07/17 15:40 Anion Gap 11 (8-16) 05/07/17 15:40 BUN 12 mg/dL (7-18) 05/07/17 15:40 Creatinine 0.7 mg/dL (0.55-1.02) 05/07/17 15:40 Creat Clearance w eGFR > 60 (>60) 05/07/17 15:40 Random Glucose 76 mg/dL (74-106) 05/07/17 15:40 Calcium 8.4 mg/dL (8.5-10.1) L 05/07/17 15:40 Total Bilirubin 0.3 mg/dL (0.2-1.0) D 05/07/17 15:40 AST 21 U/L (15-37) D 05/07/17 15:40 ALT 50 U/L (12-78) D 05/07/17 15:40 Alkaline Phosphatase 60 U/L (45-117) 05/07/17 15:40 Total Protein 7.2 g/dl (6.4-8.2) 05/07/17 15:40 Albumin 3.9 g/dl (3.4-5.0) 05/07/17 15:40 Urine Color Yellow 05/07/17 15:40 Urine Appearance Clear 05/07/17 15:40 Urine pH 5.0 (5.0-8.0) 05/07/17 15:40 Ur Specific [place] >= 1.030 (1.001-1.035) 05/07/17 15:40 Urine Protein Negative (NEGATIVE) 05/07/17 15:40 Urine Glucose (UA) Negative (NEGATIVE) 05/07/17 15:40 Urine Ketones Negative (NEGATIVE) 05/07/17 15:40 Urine Blood Negative (NEGATIVE) 05/07/17 15:40 Urine Nitrite Negative (NEGATIVE) 05/07/17 15:40 Urine Bilirubin Negative (NEGATIVE) 05/07/17 15:40 Urine Urobilinogen 0.2 mg/dL (0.2-1.0) 05/07/17 15:40 Ur Leukocyte Esterase Negative (NEGATIVE) 05/07/17 15:40 RPR Titer Reactive 1:1 (NONREACTIVE) H 05/07/17 15:40 T.pallidum Ab (MHA) Previously reactive (NONREACTIVE) 05/07/17 15:40 HIV 1&2 Antibody Screen Negative 05/07/17 14:15 HIV P24 Antigen Negative 05/07/17 14:15 lab noted - Treatment Hospital Course: Detox Protocol Followed, Responded well - Medication Discharge Medications: Ambulatory Orders NK [No Known Home Medication] 03/31/17 - AMA Did Patient Leave Against Medical Advice: Yes
[2017-05-11] MEDS ORDERED: METHADONE HCL 10 MG TABLET (FOR DETOX USE ONLY) PO ONE (10:00)
[2017-05-12] MEDS ORDERED: METHADONE HCL 5 MG TABLET (FOR DETOX USE ONLY) PO ONE (06:00)
== END 2017-05-10 22:15 | disposition left against medical advice (07) | DRG 894 ==
LOC: YASAS 10:44 → Y6N 13:40
PROVIDERS: ADMIT Internal Medicine; ATTEND Internal Medicine
PROC: HZ2ZZZZ Detoxification Services for Substance Abuse Treatment (ICD-10-PCS; principal; 2017-05-07)
DX: F11.23 Opioid dependence with withdrawal (principal); F14.20 Cocaine dependence, uncomplicated; F12.20 Cannabis dependence, uncomplicated; F17.210 Nicotine dependence, cigarettes, uncomplicated; F31.9 Bipolar disorder, unspecified; F32.9 Major depressive disorder, single episode, unspecified; N76.1 Subacute and chronic vaginitis; Z87.42 Personal history of other diseases of the female genital tract; Z87.898 Personal history of other specified conditions; Z91.5 Personal history of self-harm
CPT/HCPCS: 36415; 80053; 81003; 85027; 86593; 86780; 87389; 90688; 93005; 93010; G0008

== ENCOUNTER 2017-06-20 17:24 | Inpatient (IN) | payer OTHER ==
[2017-06-20 17:56] VITALS: BMI 23.3
--- NOTE | 2017-06-20 20:18 | HP ---
COWS - Scale Resting Pulse: 0= [place] 80 or Below Sweatin= Chills/Flushing Restless Observation: 3= Extraneous Movement Pupil Size: 0= Normal to Room Light Bone or Joint Aches: 2= Severe Diffuse Aches Runny Nose/ Eye Tearin= Runny Nose/Eyes GI Upset > 30mins: 2= Nausea/Diarrhea Tremor Observation: 2= Slight Tremor Visible Yawning Observation: 0= None Anxiety or Irritability: 2=Irritable/Anxious Goose Flesh Skin: 0=Smooth Skin COWS Score: 14 Admission [facility] Chief Complaint: WITHDRAWAL SX Allergies/Adverse Reactions: Allergies Allergy/AdvReac Type Severity Reaction Status Date / Time No Known Allergies Allergy Verified 06/20/17 19:32 History of Present Illness: 46 YEARS OLD FEMALE WITH LONG HISTORY OF HEROIN NICOTINE DEPENDENCE HAS BIPOLAR AND WEIGHT LOSS IS ADMITTED TO DETOX Exam Limitations: No Limitations - Ebola screening Have you traveled outside of the country in the last 21 days: No Have you had contact with anyone from an Ebola affected area: No Have you been sick,other than usual withdrawal symptoms: No Do you have a fever: No - Review of Systems Constitutional: Loss of Appetite, Changes in sleep, Unintentional Wgt. Loss, Unexplained wgt Loss EENT: reports: No Symptoms Reported Respiratory: reports: SOB with Exertion, Productive cough ([place]) Cardiac: reports: No Symptoms Reported GI: reports: Nausea, Poor Appetite, Poor Fluid Intake, Abdominal cramping : reports: No Symptoms Reported Musculoskeletal: reports: Back Pain, Joint Pain, Muscle Pain, Neck Pain Integumentary: reports: No Symptoms Reported Neuro: reports: Tremors Endocrine: reports: No Symptoms Reported Hematology: reports: No Symptoms Reported Psychiatric: reports: Judgement Intact, Orientated x3, Anxious, Depressed Other Systems: Reviewed and Negative Patient History - Patient Medical History Hx Anemia: No Hx Asthma: No Hx Chronic Obstructive Pulmonary Disease (COPD): No Hx Cancer: No Hx Cardiac Disorders: No Hx Congestive Heart Failure: No Hx Hypertension: No Hx Hypercholesterolemia: No Hx Pacemaker: No HX Cerebrovascular Accident: No Hx Seizures: No Hx Dementia: No Hx Diabetes: No Hx Gastrointestinal Disorders: No Hx Liver Disease: No Hx Genitourinary Disorders: No Hx Sexually Transmitted Disorders: No Hx Renal Disease (ESRD): No Hx Thyroid Disease: No Hx Human Immunodeficiency Virus (HIV): No (Last Tested: 08/2015: NEGATIVE.) Hx Hepatitis C: No (Last Tested approx. 4 years ago: NEGATIVE.) Hx Depression: No (On meds.) Hx Suicide Attempt: Yes (Pt tried to cut wrist at age 17 yrs old. PATIENT DENIES CURRENT SI / HI.) Hx Bipolar Disorder: Yes (On meds.) Hx Schizophrenia: No - Patient Surgical History Past Surgical History: Yes Hx Neurologic Surgery: No Hx Cataract Extraction: No Hx Cardiac Surgery: No Hx Lung Surgery: No Hx Breast Surgery: No Hx Breast Biopsy: No Hx Abdominal Surgery: Yes (hernia repair, @ 2008.) Hx Appendectomy: No Hx Cholecystectomy: No Hx Genitourinary Surgery: No Hx Section: No Hx Orthopedic Surgery: No Hx Hysterectomy: No Anesthesia Reaction: No - PPD History Previous Implant?: Yes Documented Results: Negative w/proof Implanted On Prior [facility] Admission?: Yes Date: 05/09/17 Results: 0 mm PPD to be Administered?: No - Reproductive History Patient is a Female of Child Bearing Age (11 -55 yrs old): Yes Last Menstrual Period: 05/18/17 Patient : No - Smoking Cessation Smoking history: Current every day smoker Have you smoked in the past 12 months: Yes Aproximately how many cigarettes per day: 20 Cigars Per Day: 0 Hx Chewing Tobacco Use: No Initiated information on smoking cessation: Yes 'Breaking Loose' booklet given: 06/20/17 - Substance & Tx. History Hx Alcohol Use: No Hx Substance Use: Yes Substance Use Type: Cocaine, Heroin, Marijuana Hx Substance Use Treatment: Yes (05/2017 [facility]) - Substances Abused Heroin Route: Inhalation Frequency: Daily Amount used: 30 bags Age of first use: 46 Date of Last Use: 06/20/17 Family Disease History - Family Disease History Family Disease History: Other: Father (, 'old age'), Mother (, etoh, sepsis), Brother (no contact), Sister (no contact), Daughter (age 24 - mental health issues) Admission Physical Exam [facility] - Vital Signs Vital Signs: Vital Signs - 24 hr 06/20/17 17:54 Temperature 98.8 F Pulse Rate 80 Respiratory 18 Rate Blood Pressure 114/70 - Physical General Appearance: Yes: Nourished, Appropriately Dressed, Mild Distress, Tremorous, Irritable, Sweating, Anxious HEENTM: Yes: Hearing grossly Normal, Normal ENT Inspection, Normocephalic, Normal Voice Respiratory: Yes: Chest Non-Tender, No Respiratory Distress, No Accessory Muscle Use, Hyperresonant Neck: Yes: Supple, Trachea in good position Breast: Yes: Breasts Symetrical Cardiology: Yes: Regular Rhythm, Regular Rate, S1, S2 Abdominal: Yes: Non Tender, Soft, Increased Bowel Sounds Genitourinary: Yes: Within Normal Limits Back: Yes: Normal Inspection Musculoskeletal: Yes: full range of Motion, Gait Steady, Back pain, Muscle Pain Extremities: Yes: Normal Inspection, Normal Range of Motion, Non-Tender, Tremors Neurological: Yes: Fully Oriented, Alert, Motor Strength 5/5, Normal Response, Depressed Affect Integumentary: Yes: Warm Lymphatic: Yes: Within Normal Limits - Diagnostic (1) Chronic back pain Current Visit: Yes Status: Chronic Qualifiers: Back pain location: low back pain Back pain laterality: bilateral Sciatica presence: without sciatica Qualified Code(s): M54.5 - Low back pain; G89.29 - Other chronic pain; G89.29 - Other chronic pain (2) Weight loss Current Visit: Yes Status: Acute (3) Nicotine dependence Current Visit: Yes Status: Acute Qualifiers: Nicotine product type: cigarettes Substance use status: in withdrawal Qualified Code(s): F17.213 - Nicotine dependence, cigarettes, with withdrawal (4) Opioid dependence with withdrawal Current Visit: Yes Status: Acute (5) Bipolar II disorder Current Visit: Yes Status: Suspected Cleared for Admission [facility] - Detox or Rehab [facility] Level of Care: Medically Managed Detox Regimen/Protocol: Methadone [facility] Breath Alcohol Content Breath Alcohol Content: 0 Urine Pregancy Test - Result Urine Test Results: Negative- NO Line Present Urine Drug Screen - Results Drug Screen Negative: No Urine Drug Screen Results: THC-Marijuana, SWETA-Cocaine, OPI-Opiates
[2017-06-20] MEDS ORDERED: MAGNESIUM CITRATE 300 ML BOTTLE PO PRN (20:24)
[2017-06-20] MEDS ORDERED: METHADONE HCL 10 MG TABLET (FOR DETOX USE ONLY) PO ONE ×2 (20:24→23:00)
[2017-06-20] MEDS ORDERED: P-EPHED 60MG/TRIPROLIDI 2.5MG TABLET PO PRN (20:24)
[2017-06-20] MEDS ORDERED: NICOTINE POLACRILEX 4 MG GUM BC PRN (20:24)
[2017-06-20] MEDS ORDERED: ACETAMINOPHEN 325 MG TABLET (FP) PO PRN (20:24)
[2017-06-20] MEDS ORDERED: guaiFENesin/D-METHORPHAN HB 10 ML UNIT-DOSE CUPS PO PRN (20:24)
[2017-06-20] MEDS ORDERED: MAGNESIUM HYDROX 2400MG/30ML ORAL SUSPENSION 30 ML CUP PO PRN (20:24)
[2017-06-20] MEDS ORDERED: MENTHOL/PHENOL 1 EACH UD MM PRN (20:24)
[2017-06-20] MEDS ORDERED: MAG HYDROX/AL HYDROX/SIMETH 30 ML UNIT-DOSE CUP PO PRN (20:24)
[2017-06-20] MEDS ORDERED: LOPERAMIDE HCL 2 MG CAPSULE PO PRN (20:24)
[2017-06-20] MEDS ORDERED: IBUPROFEN 400 MG TABLET (FP) PO PRN (20:24)
[2017-06-20] MEDS ORDERED: METHOCARBAMOL 500 MG TABLET PO PRN (20:29)
[2017-06-20] MEDS ORDERED: ALBUTEROL SO4 18 GM HFA INHALER IH PRN (20:30)
[2017-06-20] MEDS: THIAMINE HCL 100 MG TABLET (FP) PO SCH (22:00)
[2017-06-20] MEDS: metroNIDAZOLE 250 MG TABLET PO SCH (22:01)
[2017-06-20] MEDS: diazePAM 5 MG TABLET PO PRN (22:01)
[2017-06-21 01:18] LABS: URINE APPEARANCE SLCLOUDY; URINE BILIRUBIN NEGATIVE (NEGATIVE); URINE BLOOD NEGATIVE (NEGATIVE); URINE COLOR YELLOW; URINE GLUCOSE (UA) NEGATIVE (NEGATIVE); URINE KETONE NEGATIVE (NEGATIVE); URINE LEUK ESTERASE NEGATIVE (NEGATIVE); URINE NITRITE NEGATIVE (NEGATIVE); URINE PROTEIN NEGATIVE (NEGATIVE); URINE UROBILINOGEN NEGATIVE mg/dL (0.2-1.0)
[2017-06-21] MEDS: metroNIDAZOLE 250 MG TABLET PO SCH ×3 (07:33→22:18)
--- NOTE | 2017-06-21 07:45 | CONSULT ---
[facility] Psychiatric Consult - Data Date of interview: 06/21/17 Admission source: [facility] Identifying data: This is 46 years old female with psychiatric hospitalization history intoxicated with Opioids, Nicotine, Cannabis and Cociane Substance Abuse History: - Smoking Cessation. Smoking history: Current every day smoker. Have you smoked in the past 12 months: Yes. Aproximately how many cigarettes per day: 20. Cigars Per Day: 0. Hx Chewing Tobacco Use: No. Initiated information on smoking cessation: Yes. 'Breaking Loose' booklet given : 06/20/17. - Substance & Tx. History. Hx Alcohol Use: No. Hx Substance Use: Yes. Substance Use Type: Cocaine, Heroin, Marijuana. Hx Substance Use Treatment: Yes (05/2017 [facility]). - Substances Abused. Heroin. Route: Inhalation. Frequency: Daily. Amount used: 30 bags. Age of first use: 46. Date of Last Use: 06/20/17 Medical History: LBP, Weight loss Psychiatric History: Patient reports history of anxiety and dep[ression,. reports recent psychiatric admission at [facility] for safety, reports taking prior to admission: Seroquel 600mg po qhs Physical/Sexual Abuse/Trauma History: Denies Additional Comment: Seroquel 600mg po qhs Mental Status Exam - Mental Status Exam Alert and Oriented to: Person Cognitive Function: Fair Patient Appearance: Unkempt Mood: Sad Affect: Flat Patient Behavior: Cooperative Speech Pattern: Delayed Voice Loudness: Normal Thought Process: Circumstantial Thought Disorder: Being Controlled Hallucinations: Denies Suicidal Ideation: Denies Homicidal Ideation: Denies Insight/Judgement: Fair Sleep: Difficulty falling asleep Appetite: Weight gain Muscle strength/Tone: Mild Hypotonicity Gait/Station: Normal Additional Comments: Seroquel 600mg po qhs Psychiatric Findings - Problem List ([place] 1, 2,3) (1) Nicotine dependence Current Visit: Yes Status: Acute Qualifiers: Nicotine product type: cigarettes Substance use status: in withdrawal Qualified Code(s): F17.213 - Nicotine dependence, cigarettes, with withdrawal (2) Opioid dependence with withdrawal Current Visit: Yes Status: Acute (3) Weight loss Current Visit: Yes Status: Acute (4) Bipolar II disorder Current Visit: Yes Status: Suspected (5) Alcohol dependence Current Visit: No Status: Acute (6) Cocaine dependence Current Visit: No Status: Acute Qualifiers: Substance use status: uncomplicated Qualified Code(s): F14.20 - Cocaine dependence, uncomplicated (7) Marihuana dependence Current Visit: No Status: Acute (8) Substance induced mood disorder Current Visit: No Status: Acute (9) Alcohol dependence with uncomplicated withdrawal Current Visit: No Status: Chronic (10) History of bipolar disorder Current Visit: No Status: Chronic (11) Sedative, hypnotic or anxiolytic dependence, uncomplicated Current Visit: No Status: Chronic - Initial Treatment Plan Initial Treatment Plan: Seroquel 400mg po qhs
[2017-06-21] MEDS ORDERED: METHADONE HCL 10 MG TABLET (FOR DETOX USE ONLY) PO ONE (10:00)
[2017-06-21 10:05] LABS: MCH 30.1 pg (25.7-33.7); MCHC 32.3 g/dl (32.0-36.0); MEAN CELL VOLUME 93.3 fl (80-96); MEAN PLT VOLUME 10.5 fl (7.5-11.1); PLATELET COUNT 189 K/MM3 (134-434); RDW 14.7 % (11.6-15.6); WHITE BLOOD COUNT 7.6 K/mm3 (4.0-10.0)
[2017-06-21 10:23] LABS: ALBUMIN 3.4 g/dl (3.4-5.0); ALK PHOS 58 U/L (45-117); ANION GAP 5 (8-16); BILIRUBIN,TOTAL 0.4 mg/dL (0.2-1.0); CALCIUM 8.8 mg/dL (8.5-10.1); CO2 30 mmol/L (21-32); CREATININE 0.8 mg/dL (0.55-1.02); GLUCOSE,RANDOM 80 mg/dL (74-106); SGOT/AST 14 U/L (15-37); SGPT/ALT 27 U/L (12-78); TOT PROT 6.5 g/dl (6.4-8.2)
[2017-06-21] MEDS: NICOTINE 21 MG/24 HOURS TOPICAL PATCH TD SCH (11:00)
[2017-06-21] MEDS: PRENATAL VITAMINS W/ FOLIC ACID TABLET (FP) PO SCH (11:00)
--- NOTE | 2017-06-21 11:02 | PN ---
BHS COWS - Scale Resting Pulse: 0= DC 80 or Below Sweatin=Flushed/Facial Moisture Restless Observation: 1= Difficult to Sit Still Pupil Size: 0= Normal to Room Light Bone or Joint Aches: 2= Severe Diffuse Aches Runny Nose/ Eye Tearin= Runny Nose/Eyes GI Upset > 30mins: 1= Stomach Cramp Tremor Observation of Outstretched Hands: 2= Slight Tremor Visible Yawning Observation: 2= >3x During Session Anxiety or Irritability: 2=Irritable/Anxious Goose Flesh Skin: 3=Piloerection COWS Score: 17 BHS Progress Note (SOAP) Subjective: irritable agitation sweats shakes body aches interrupted sleep Objective: 06/21/17 11:01 Vital Signs Temperature 98.1 F 06/21/17 09:36 Pulse Rate 59 L 06/21/17 09:36 Respiratory Rate 18 06/21/17 09:36 Blood Pressure 128/80 06/21/17 09:36 O2 Sat by Pulse Oximetry (%) Laboratory Tests 06/20/17 06/21/17 06/21/17 21:57 07:00 07:00 WBC 7.6 RBC 4.49 Hgb 13.5 Hct 41.9 MCV 93.3 MCH 30.1 MCHC 32.3 RDW 14.7 Plt Count 189 MPV 10.5 Sodium 144 Potassium 4.2 Chloride 109 H Carbon Dioxide 30 Anion Gap 5 L BUN 16 D Creatinine 0.8 Creat Clearance w eGFR > 60 Random Glucose 80 Calcium 8.8 Total Bilirubin 0.4 D AST 14 L D ALT 27 D Alkaline Phosphatase 58 Total Protein 6.5 Albumin 3.4 Urine Color Yellow Urine Appearance Slcloudy Urine pH 6.0 Ur Specific [place] 1.023 Urine Protein Negative Urine Glucose (UA) Negative Urine Ketones Negative Urine Blood Negative Urine Nitrite Negative Urine Bilirubin Negative Urine Urobilinogen Negative aaox3 ambulating no acute distress Assessment: 06/21/17 11:02 withdrawal sx Plan: continue detox increase fluids
[2017-06-21 13:18] LABS: URINE LEUK ESTERASE Negative (NEGATIVE)
--- NOTE | 2017-06-21 16:36 | EKG ---
Test Reason : Blood Pressure : / mmHG Vent. Rate : 067 BPM Atrial Rate : 067 BPM P-R Int : 140 ms QRS Dur : 094 ms QT Int : 406 ms P-R-T Axes : 070 072 063 degrees QTc Int : 429 ms NORMAL SINUS RHYTHM POSSIBLE LEFT ATRIAL ENLARGEMENT LEFT VENTRICULAR HYPERTROPHY ABNORMAL ECG WHEN COMPARED WITH ECG OF 07-MAY-2017 15:59, NO SIGNIFICANT CHANGE WAS FOUND Confirmed by MARTÍN ORTIZ MD ([id number]) on 06/21/2017 4:36:26 PM Referred By: Confirmed By:MARTÍN ORTIZ MD
[2017-06-21] MEDS: THIAMINE HCL 100 MG TABLET (FP) PO SCH (22:18)
[2017-06-21] MEDS: QUEtiapine FUMARATE 400 MG TABLET PO SCH ×2 (22:18→22:37)
[2017-06-21] MEDS: diazePAM 5 MG TABLET PO PRN (22:18)
[2017-06-22] MEDS: diazePAM 5 MG TABLET PO PRN ×2 (03:14→10:14)
[2017-06-22] MEDS: metroNIDAZOLE 250 MG TABLET PO SCH ×2 (05:46→14:08)
[2017-06-22] MEDS ORDERED: METHADONE HCL 5 MG TABLET (FOR DETOX USE ONLY) PO ONE (10:00)
[2017-06-22] MEDS: PRENATAL VITAMINS W/ FOLIC ACID TABLET (FP) PO SCH (10:14)
[2017-06-22] MEDS: NICOTINE 21 MG/24 HOURS TOPICAL PATCH TD SCH (10:16)
--- NOTE | 2017-06-22 12:30 | PN ---
BHS COWS - Scale Resting Pulse: 0= [place] 80 or Below Sweatin=Flushed/Facial Moisture Restless Observation: 1= Difficult to Sit Still Pupil Size: 0= Normal to Room Light Bone or Joint Aches: 2= Severe Diffuse Aches Runny Nose/ Eye Tearin= Nasal Congestion GI Upset > 30mins: 2= Nausea/Diarrhea Tremor Observation of Outstretched Hands: 2= Slight Tremor Visible Yawning Observation: 2= >3x During Session Anxiety or Irritability: 2=Irritable/Anxious Goose Flesh Skin: 0=Smooth Skin COWS Score: 14 BHS Progress Note (SOAP) Subjective: shakes sweats interrupted sleep body aches irritable Objective: 06/22/17 12:29 Vital Signs Temperature 97.5 F L 06/22/17 10:15 Pulse Rate 80 06/22/17 10:15 Respiratory Rate 16 06/22/17 10:15 Blood Pressure 124/68 06/22/17 10:15 O2 Sat by Pulse Oximetry (%) Laboratory Tests 06/20/17 06/21/17 06/21/17 21:57 07:00 07:00 WBC 7.6 RBC 4.49 Hgb 13.5 Hct 41.9 MCV 93.3 MCH 30.1 MCHC 32.3 RDW 14.7 Plt Count 189 MPV 10.5 Sodium 144 Potassium 4.2 Chloride 109 H Carbon Dioxide 30 Anion Gap 5 L BUN 16 D Creatinine 0.8 Creat Clearance w eGFR > 60 Random Glucose 80 Calcium 8.8 Total Bilirubin 0.4 D AST 14 L D ALT 27 D Alkaline Phosphatase 58 Total Protein 6.5 Albumin 3.4 Urine Color Yellow Urine Appearance Slcloudy Urine pH 6.0 Ur Specific [place] 1.023 Urine Protein Negative Urine Glucose (UA) Negative Urine Ketones Negative Urine Blood Negative Urine Nitrite Negative Urine Bilirubin Negative Urine Urobilinogen Negative Ur Leukocyte Esterase Negative RPR Titer T.pallidum Ab ([facility]) 06/21/17 07:00 WBC RBC Hgb Hct MCV MCH MCHC RDW Plt Count MPV Sodium Potassium Chloride Carbon Dioxide Anion Gap BUN Creatinine Creat Clearance w eGFR Random Glucose Calcium Total Bilirubin AST ALT Alkaline Phosphatase Total Protein Albumin Urine Color Urine Appearance Urine pH Ur Specific [place] Urine Protein Urine Glucose (UA) Urine Ketones Urine Blood Urine Nitrite Urine Bilirubin Urine Urobilinogen Ur Leukocyte Esterase RPR Titer Reactive 1:1 H T.pallidum Ab ([facility]) Previously reactive aaox3 ambulating no acute distress Assessment: 06/22/17 12:30 withdrawal sx Plan: continue detox increase fluids
[2017-06-22 17:32] VITALS: BP 114/70; PULSE 64; TEMP 98.4
--- NOTE | 2017-06-22 20:24 | PN ---
S Progress Note Note: Patient does not want to stay and complete detox, advised of risks of not completing detox including ; pt. verbalized understanding but stated she wanted to leave. No home medications requested.
--- NOTE | 2017-06-22 20:26 | DS ---
[facility] Detox Discharge Summary Admission Date: 06/20/17 Discharge Date: 06/22/17 - History Present History: Opioid Dependence, Sedative Dependence Pertinent Past History: Laboratory Last Values WBC 7.6 K/mm3 (4.0-10.0) 06/21/17 07:00 RBC 4.49 M/mm3 (3.60-5.2) 06/21/17 07:00 Hgb 13.5 GM/dL (10.7-15.3) 06/21/17 07:00 Hct 41.9 % (32.4-45.2) 06/21/17 07:00 MCV 93.3 fl (80-96) 06/21/17 07:00 MCH 30.1 pg (25.7-33.7) 06/21/17 07:00 MCHC 32.3 g/dl (32.0-36.0) 06/21/17 07:00 RDW 14.7 % (11.6-15.6) 06/21/17 07:00 Plt Count 189 K/MM3 (134-434) 06/21/17 07:00 MPV 10.5 fl (7.5-11.1) 06/21/17 07:00 Sodium 144 mmol/L (136-145) 06/21/17 07:00 Potassium 4.2 mmol/L (3.5-5.1) 06/21/17 07:00 Chloride 109 mmol/L (98-107) H 06/21/17 07:00 Carbon Dioxide 30 mmol/L (21-32) 06/21/17 07:00 Anion Gap 5 (8-16) L 06/21/17 07:00 BUN 16 mg/dL (7-18) D 06/21/17 07:00 Creatinine 0.8 mg/dL (0.55-1.02) 06/21/17 07:00 Creat Clearance w eGFR > 60 (>60) 06/21/17 07:00 Random Glucose 80 mg/dL (74-106) 06/21/17 07:00 Calcium 8.8 mg/dL (8.5-10.1) 06/21/17 07:00 Total Bilirubin 0.4 mg/dL (0.2-1.0) D 06/21/17 07:00 AST 14 U/L (15-37) L D 06/21/17 07:00 ALT 27 U/L (12-78) D 06/21/17 07:00 Alkaline Phosphatase 58 U/L (45-117) 06/21/17 07:00 Total Protein 6.5 g/dl (6.4-8.2) 06/21/17 07:00 Albumin 3.4 g/dl (3.4-5.0) 06/21/17 07:00 Urine Color Yellow 06/20/17 21:57 Urine Appearance Slcloudy 06/20/17 21:57 Urine pH 6.0 (5.0-8.0) 06/20/17 21:57 Ur Specific [place] 1.023 (1.001-1.035) 06/20/17 21:57 Urine Protein Negative (NEGATIVE) 06/20/17 21:57 Urine Glucose (UA) Negative (NEGATIVE) 06/20/17 21:57 Urine Ketones Negative (NEGATIVE) 06/20/17 21:57 Urine Blood Negative (NEGATIVE) 06/20/17 21:57 Urine Nitrite Negative (NEGATIVE) 06/20/17 21:57 Urine Bilirubin Negative (NEGATIVE) 06/20/17 21:57 Urine Urobilinogen Negative mg/dL (0.2-1.0) 06/20/17 21:57 Ur Leukocyte Esterase Negative (NEGATIVE) 06/20/17 21:57 RPR Titer Reactive 1:1 (NONREACTIVE) H 06/21/17 07:00 T.pallidum Ab ([facility]) Previously reactive (NONREACTIVE) 06/21/17 07:00 labs noted - Physical Exam Results Vital Signs: Vital Signs Temperature 98.4 F 06/22/17 17:31 Pulse Rate 64 06/22/17 17:31 Respiratory Rate 18 06/22/17 17:31 Blood Pressure 114/70 06/22/17 17:31 O2 Sat by Pulse Oximetry (%) - Medication Discharge Medications: Ambulatory Orders Gabapentin [Neurontin -] 600 mg PO Q8H 06/20/17 Quetiapine Fumarate [Seroquel -] 600 mg PO HS 06/20/17 Quetiapine Fumarate [Seroquel -] 400 mg PO HS #30 tab 06/21/17 - Diagnosis (1) Opioid dependence with withdrawal Current Visit: No Status: Chronic (2) Weight loss Current Visit: No Status: Acute (3) Chronic back pain Current Visit: No Status: Chronic Qualifiers: Back pain location: low back pain Back pain laterality: bilateral Sciatica presence: without sciatica Qualified Code(s): M54.5 - Low back pain; G89.29 - Other chronic pain; G89.29 - Other chronic pain - AMA Did Patient Leave Against Medical Advice: Yes (Patient does not want to stay and complete detox and requested to leave AMA)
[2017-06-23] MEDS ORDERED: METHADONE HCL 5 MG TABLET (FOR DETOX USE ONLY) PO ONE (10:00)
[2017-06-24] MEDS ORDERED: METHADONE HCL 10 MG TABLET (FOR DETOX USE ONLY) PO ONE (10:00)
[2017-06-25] MEDS ORDERED: METHADONE HCL 5 MG TABLET (FOR DETOX USE ONLY) PO ONE (06:00)
== END 2017-06-22 08:04 | disposition left against medical advice (07) | DRG 894 ==
LOC: YASAS 17:24 → Y6N 18:58
PROVIDERS: ADMIT Internal Medicine; ATTEND Internal Medicine
PROC: HZ2ZZZZ Detoxification Services for Substance Abuse Treatment (ICD-10-PCS; principal; 2017-06-20)
DX: F11.23 Opioid dependence with withdrawal (principal); F14.20 Cocaine dependence, uncomplicated; F31.81 Bipolar II disorder; F13.230 Sedative, hypnotic or anxiolytic dependence with withdrawal, uncomplicated; F10.230 Alcohol dependence with withdrawal, uncomplicated; F12.20 Cannabis dependence, uncomplicated; F17.210 Nicotine dependence, cigarettes, uncomplicated; F32.9 Major depressive disorder, single episode, unspecified; F19.24 Other psychoactive substance dependence with psychoactive substance-induced mood disorder; G47.00 Insomnia, unspecified; G62.9 Polyneuropathy, unspecified; M54.5 Low back pain; G89.29 Other chronic pain; Z87.898 Personal history of other specified conditions; Z91.5 Personal history of self-harm
CPT/HCPCS: 36415; 80053; 81003; 85027; 86593; 86780; 93005; 93010

== ENCOUNTER 2017-08-14 11:36 | Inpatient (IN) | payer OTHER ==
[2017-08-14 12:37] VITALS: BMI 22.6
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
[2017-08-14] MEDS ORDERED: guaiFENesin/D-METHORPHAN HB 10 ML UNIT-DOSE CUPS PO PRN (14:01)
[2017-08-14] MEDS ORDERED: NICOTINE POLACRILEX 4 MG GUM BUC PRN (14:01)
[2017-08-14] MEDS ORDERED: MAGNESIUM CITRATE 300 ML BOTTLE PO PRN (14:01)
[2017-08-14] MEDS ORDERED: MAGNESIUM HYDROX 2400MG/30ML ORAL SUSPENSION 30 ML CUP PO PRN (14:01)
[2017-08-14] MEDS ORDERED: MENTHOL/PHENOL 1 EACH UD MM PRN (14:01)
[2017-08-14] MEDS ORDERED: MAG HYDROX/AL HYDROX/SIMETH 30 ML UNIT-DOSE CUP PO PRN (14:01)
[2017-08-14] MEDS ORDERED: LOPERAMIDE HCL 2 MG CAPSULE PO PRN (14:01)
[2017-08-14] MEDS ORDERED: P-EPHED 60MG/TRIPROLIDI 2.5MG TABLET PO PRN (14:01)
[2017-08-14] MEDS ORDERED: ACETAMINOPHEN 325 MG TABLET (FP) PO PRN (14:01)
[2017-08-14] MEDS ORDERED: diazePAM 5 MG TABLET PO ONE (15:35)
[2017-08-14] MEDS: METHOCARBAMOL 500 MG TABLET PO SCH ×2 (17:17→22:44)
[2017-08-14] MEDS: GABAPENTIN 400 MG CAPSULE (FP) PO SCH (22:44)
[2017-08-14] MEDS: THIAMINE HCL 100 MG TABLET (FP) PO SCH (22:44)
[2017-08-14] MEDS: diazePAM 5 MG TABLET PO SCH (22:44)
[2017-08-14] MEDS: RANITIDINE HCL 150 MG TABLET (FP) PO SCH (22:44)
[2017-08-14 23:43] LABS: URINE APPEARANCE TURBID; URINE BILIRUBIN NEGATIVE (NEGATIVE); URINE BLOOD NEGATIVE (NEGATIVE); URINE COLOR YELLOW; URINE GLUCOSE (UA) NEGATIVE (NEGATIVE); URINE KETONE TRACE (NEGATIVE); URINE LEUK ESTERASE NEGATIVE (NEGATIVE); URINE NITRITE NEGATIVE (NEGATIVE); URINE PROTEIN 1+ (NEGATIVE); URINE UROBILINOGEN 4.0 E.U/dl mg/dL (0.2-1.0)
[2017-08-14 23:48] LABS: EPI CELLS RARE /HPF (FEW); URINE BACTERIA MODERATE /hpf (NONE SEEN); URINE MUCUS FEW
[2017-08-15] MEDS: diazePAM 5 MG TABLET PO SCH ×3 (05:31→22:20)
[2017-08-15] MEDS: GABAPENTIN 400 MG CAPSULE (FP) PO SCH ×3 (05:31→22:20)
--- NOTE | 2017-08-15 08:12 | CONSULT ---
[facility] Psychiatric Consult - Data Date of interview: 08/15/17 Admission source: [facility] Identifying data: This is 46 years old female with long history of alcohol and xanax, nicotine dependence has bee is admitted to detoxification. Denies past pscyhiatric hospitalization history. Substance Abuse History: - Smoking Cessation. Smoking history: Current every day smoker. Have you smoked in the past 12 months: Yes. Aproximately how many cigarettes per day: 20. Cigars Per Day: 0. Hx Chewing Tobacco Use: No. Initiated information on smoking cessation: Yes. 'Breaking Loose' booklet given : 08/14/17. - Substance & Tx. History. Hx Alcohol Use: Yes. Hx Substance Use : Yes. Substance Use Type: Alcohol, Cocaine, Marijuana, Tranquilizers. Hx Substance Use Treatment: Yes. - Substances Abused. Alcohol. Route: Oral. Frequency: 3-6 times per week. Amount used: 24ozx2 12%+ selene pint. Age of first use: 45. Date of Last Use: 08/14/17. Alprazolam (Xanax). Route: Oral. Frequency: Daily. Amount used: 10 mg. Age of first use: 45. Date of Last Use: 08/13/17 Medical History: Weight loss history Psychiatric History: Patient reports no0 psychiatri hospitalization history, as per computer taking prior to admission: Seroquel 200mg po qhs. Patient reports severe insomnia, reports usually taking Seroquel 400mg-600mg po qhs during detox protocol. Patient agrees to restart above medicatiuons Physical/Sexual Abuse/Trauma History: Denies Additional Comment: Seroquel 200mg po qhs Mental Status Exam - Mental Status Exam Alert and Oriented to: Person Cognitive Function: Fair Patient Appearance: Unkempt Mood: Sad Affect: Flat Patient Behavior: Sedated Speech Pattern: Delayed Voice Loudness: Moderately Soft/Quiet Thought Process: Circumstantial Thought Disorder: Being Controlled Hallucinations: Denies Suicidal Ideation: Denies Homicidal Ideation: Denies Insight/Judgement: Fair Sleep: Difficulty falling asleep Appetite: Weight loss Muscle strength/Tone: Mild Hypotonicity Gait/Station: Shuffling Additional Comments: Seroquel 200mg po qhs Psychiatric Findings - Problem List ([place] 1, 2,3) (1) Alcohol dependence with uncomplicated withdrawal Current Visit: Yes Status: Acute (2) Nicotine dependence Current Visit: Yes Status: Acute Qualifiers: Nicotine product type: cigarettes Substance use status: in withdrawal Qualified Code(s): F17.213 - Nicotine dependence, cigarettes, with withdrawal (3) Sedative, hypnotic or anxiolytic dependence, uncomplicated Current Visit: Yes Status: Acute (4) Bipolar II disorder Current Visit: Yes Status: Suspected (5) Cocaine dependence Current Visit: No Status: Acute Qualifiers: Substance use status: uncomplicated Qualified Code(s): F14.20 - Cocaine dependence, uncomplicated (6) Substance induced mood disorder Current Visit: No Status: Acute (7) Bipolar disorder Current Visit: No Status: Chronic Comment: Self-report. (8) Cannabis dependence, uncomplicated Current Visit: No Status: Chronic (9) History of bipolar disorder Current Visit: No Status: Chronic (10) History of depression Current Visit: No Status: Chronic (11) Opioid dependence with withdrawal Current Visit: No Status: Chronic - Initial Treatment Plan Initial Treatment Plan: Seroquel 400mg po qhs
[2017-08-15 09:56] LABS: HEMATOCRIT 44.5 % (32.4-45.2); HEMOGLOBIN 14.6 GM/dL (10.7-15.3); MCH 30.5 pg (25.7-33.7); MCHC 32.8 g/dl (32.0-36.0); MEAN PLT VOLUME 10.7 fl (7.5-11.1); PLATELET COUNT 301 K/MM3 (134-434); RBC 4.78 M/mm3 (3.60-5.2); RDW 13.8 % (11.6-15.6); WHITE BLOOD COUNT 7.8 K/mm3 (4.0-10.0)
[2017-08-15 10:38] LABS: CHLORIDE 103 mmol/L (98-107); POTASSIUM 3.2 mmol/L (3.5-5.1); SODIUM 139 mmol/L (136-145)
[2017-08-15] MEDS: RANITIDINE HCL 150 MG TABLET (FP) PO SCH ×2 (10:42→22:20)
[2017-08-15] MEDS: PRENATAL VITAMINS W/ FOLIC ACID TABLET (FP) PO SCH (10:42)
[2017-08-15] MEDS: METHOCARBAMOL 500 MG TABLET PO SCH ×4 (10:42→22:20)
[2017-08-15] MEDS: NICOTINE 21 MG/24 HOURS TOPICAL PATCH TD SCH (10:43)
[2017-08-15] MEDS: diazePAM 5 MG TABLET PO PRN ×2 (10:45→17:20)
--- NOTE | 2017-08-15 10:51 | PN ---
[facility] CIWA - CIWA Score Nausea/Vomitin-Mild Nausea/No Vomiting Muscle Tremors: 4-Moderate,w/Arms Extend Anxiety: 4-Mod. Anxious/Guarded Agitation: 4-Moderately Restless Paroxysmal Sweats: 1-Minimal Palms Moist Orientation: 0-Oriented Tacttile Disturbances: 0-None Auditory Disturbances: 0-None Visual Disturbances: 0-None Headache: 0-None Present CIWA-Ar Total Score: 14 S Progress Note (SOAP) Subjective: tremor sweat anxiety agitation restlessness patient states that she had positive std test result a week ago, have not received treatment "busy doing drug" Objective: 08/15/17 10:47 Vital Signs Temperature 98.1 F 08/15/17 10:36 Pulse Rate 76 08/15/17 10:36 Respiratory Rate 16 08/15/17 10:36 Blood Pressure 91/52 08/15/17 10:36 O2 Sat by Pulse Oximetry (%) Laboratory Last Values WBC 7.8 K/mm3 (4.0-10.0) 08/15/17 05:50 RBC 4.78 M/mm3 (3.60-5.2) 08/15/17 05:50 Hgb 14.6 GM/dL (10.7-15.3) 08/15/17 05:50 Hct 44.5 % (32.4-45.2) 08/15/17 05:50 MCV 93.0 fl (80-96) 08/15/17 05:50 MCH 30.5 pg (25.7-33.7) 08/15/17 05:50 MCHC 32.8 g/dl (32.0-36.0) 08/15/17 05:50 RDW 13.8 % (11.6-15.6) 08/15/17 05:50 Plt Count 301 K/MM3 (134-434) D 08/15/17 05:50 MPV 10.7 fl (7.5-11.1) 08/15/17 05:50 Urine Color Yellow 08/14/17 20:21 Urine Appearance Turbid 08/14/17 20:21 Urine pH 5.0 (5.0-8.0) 08/14/17 20:21 Ur Specific [place] 1.032 (1.001-1.035) 08/14/17 20:21 Urine Protein 1+ (NEGATIVE) H 08/14/17 20:21 Urine Glucose (UA) Negative (NEGATIVE) 08/14/17 20:21 Urine Ketones Trace (NEGATIVE) H 08/14/17 20:21 Urine Blood Negative (NEGATIVE) 08/14/17 20:21 Urine Nitrite Negative (NEGATIVE) 08/14/17 20:21 Urine Bilirubin Negative (NEGATIVE) 08/14/17 20:21 Urine Urobilinogen 4.0 e.u/dl mg/dL (0.2-1.0) H 08/14/17 20:21 Ur Leukocyte Esterase Negative (NEGATIVE) 08/14/17 20:21 Urine WBC (Auto) 19 /hpf (3-5) 08/14/17 20:21 Urine RBC (Auto) 2 /hpf (0-3) 08/14/17 20:21 Ur Epithelial Cells Rare /HPF (FEW) 08/14/17 20:21 Urine Bacteria Moderate /hpf (NONE SEEN) 08/14/17 20:21 Urine Mucus Few 08/14/17 20:21 lab noted Assessment: 08/15/17 10:54 withdrawal sx 08/15/17 10:57 Plan: continue detox metronidazole 2000 mg po x 1 for chlymadia wait for rpr lab result
[2017-08-15 10:52] LABS: ALBUMIN 4.2 g/dl (3.4-5.0); ALK PHOS 62 U/L (45-117); ANION GAP 7 (8-16); BILIRUBIN,TOTAL 0.8 mg/dL (0.2-1.0); BLOOD UREA NITROGEN 13 mg/dL (7-18); CALCIUM 9.1 mg/dL (8.5-10.1); CO2 29 mmol/L (21-32); CREATININE 0.8 mg/dL (0.55-1.02); GLUCOSE,RANDOM 69 mg/dL (74-106); SGOT/AST 26 U/L (15-37); SGPT/ALT 45 U/L (12-78); TOT PROT 7.2 g/dl (6.4-8.2)
--- NOTE | 2017-08-15 11:01 | EKG ---
Test Reason : Blood Pressure : / mmHG Vent. Rate : 065 BPM Atrial Rate : 065 BPM P-R Int : 130 ms QRS Dur : 094 ms QT Int : 440 ms P-R-T Axes : 072 076 058 degrees QTc Int : 457 ms NORMAL SINUS RHYTHM POSSIBLE LEFT ATRIAL ENLARGEMENT LEFT VENTRICULAR HYPERTROPHY ABNORMAL ECG WHEN COMPARED WITH ECG OF 20-JUN-2017 21:34, NO SIGNIFICANT CHANGE WAS FOUND Confirmed by MALICK JIM, EILEEN ([id number]) on 08/15/2017 11:00:50 AM Referred By: Confirmed By:EILEEN TERESA MD
[2017-08-15] MEDS ORDERED: metroNIDAZOLE 250 MG TABLET PO ONE (11:30)
[2017-08-15 11:52] LABS: RPR REACTIVE 1:1 (NONREACTIVE)
[2017-08-15 11:53] LABS: TREPONEMA ANTIBODY PREVIOUSLY REACTIVE (NONREACTIVE)
[2017-08-15] MEDS ORDERED: metroNIDAZOLE 250 MG TABLET PO SCH (14:00)
[2017-08-15] MEDS ORDERED: PENICILLIN G BENZATHINE 2,400,000 UNIT/4 ML PFS IM ONE (15:08)
--- NOTE | 2017-08-15 15:52 | PN ---
BHS Progress Note Note: Patient had +ve rpr, reports previously treated. d/c penicilin ordered, nursing notified.
[2017-08-15] MEDS: FLUCONAZOLE 100 MG TABLET (UD) PO SCH (17:18)
[2017-08-15] MEDS ORDERED: SULFAMETHOXAZOLE/TRIMETHOPRIM 800MG/160MG D.S. TABLET PO SCH (22:00)
[2017-08-15] MEDS: THIAMINE HCL 100 MG TABLET (FP) PO SCH (22:19)
[2017-08-15] MEDS: QUEtiapine FUMARATE 400 MG TABLET PO SCH (22:20)
[2017-08-15] MEDS: MICONAZOLE NITRATE 2% VAGINAL CREAM 45 GM TUBE VG SCH (22:23)
[2017-08-16] MEDS: diazePAM 5 MG TABLET PO PRN (01:33)
[2017-08-16] MEDS: GABAPENTIN 400 MG CAPSULE (FP) PO SCH ×3 (05:21→22:29)
[2017-08-16] MEDS ORDERED: ZOLPIDEM TARTRATE 5 MG TABLET PO PRN (08:24)
--- NOTE | 2017-08-16 08:24 | PN ---
Psychiatric Progress Note Vital Signs: Vital Signs Period Temp Pulse Resp BP Sys/Alegre Pulse Ox Last 24 Hr 97.3 F-98.1 F 76-117 16-20 91-136/52-90 Date of Session: 08/16/17 Chief Complaint:: Patient approached MD in a lobby reporting Insomnia HPI: to restart Ambien 10mg po QHS PRN for insomnia Current Medications: Active Medications Generic Name Dose Route Start Last Admin Trade Name Freq PRN Reason Stop Dose Admin Acetaminophen 650 mg 08/14/17 14:01 Tylenol - PO Q4H PRN FEVER Al Hydroxide/Mg Hydroxide 30 ml 08/14/17 14:01 Mylanta Oral Suspension - PO Q6H PRN DYSPEPSIA Diazepam 10 mg 08/14/17 14:01 08/16/17 01:33 Valium - PO 08/17/17 14:00 10 mg Q4H PRN Administration WITHDRAWAL(CONT SUBST) Diazepam 5 mg 08/16/17 10:00 Valium - PO 08/17/17 22:01 BID CRYSTAL Diazepam 5 mg 08/18/17 10:00 Valium - PO 08/18/17 10:01 DAILY CRYSTAL Eucalyptus/Menthol/Phenol/Sorbitol 1 each 08/14/17 14:01 Cepastat Lozenge - MM Q4H PRN SORE THROAT Fluconazole 100 mg 08/15/17 16:45 08/15/17 17:18 Diflucan - PO 08/22/17 16:44 100 mg DAILY CRYSTAL Administration Gabapentin 400 mg 08/14/17 22:00 08/16/17 05:21 Neurontin - PO 400 mg TID CRYSTAL Administration Guaifenesin 10 ml 08/14/17 14:01 Robitussin Dm - PO Q6H PRN COUGH Loperamide HCl 4 mg 08/14/17 14:01 Imodium - PO Q6H PRN DIARRHEA Magnesium Citrate 300 ml 08/14/17 14:01 Citroma - PO Q48H PRN CONSTIPATION Magnesium Hydroxide 30 ml 08/14/17 14:01 Milk Of Magnesia - PO DAILY PRN CONSTIPATION Methocarbamol 500 mg 08/14/17 18:00 08/15/17 22:20 Robaxin - PO 500 mg QID CRYSTAL Administration Miconazole Nitrate 1 applic 08/15/17 22:00 08/15/17 22:23 Monistat-7 Vaginal Cream - VG 08/21/17 22:01 1 applic HS CRYSTAL Administration Nicotine 21 mg 08/15/17 10:00 08/15/17 10:43 Nicoderm Patch - TD Not Given DAILY CRYSTAL Nicotine Polacrilex 4 mg 08/14/17 14:01 Nicorette Gum - BUC Q2H PRN NICOTINE REPLACEMENT RX Multivit/Folic Acid/Iron 1 tab 08/15/17 10:00 08/15/17 10:42 Vitamins (Sjr) - PO 1 tab DAILY CRYSTAL Administration Pseudoephedrine/Triprolidine 1 combo 08/14/17 14:01 Actifed - PO TID PRN NASAL CONGESTION Quetiapine Fumarate 400 mg 08/15/17 22:00 08/15/17 22:20 Seroquel - PO 400 mg HS CRYSTAL Administration Ranitidine HCl 150 mg 08/14/17 22:00 08/15/17 22:20 Zantac - PO 150 mg BID CRYSTAL Administration Thiamine HCl 100 mg 08/14/17 22:00 08/15/17 22:19 Vitamin B1 - PO 100 mg HS CRYSTAL Administration Medication(s) Change(s): Ambien po prn qhs q4 for insomnia Mental Status Exam - Mental Status Exam Alert and Oriented to: Person Cognitive Function: Fair Patient Appearance: Unkempt Mood: Nervous, Anxious, Irritable Affect: Labile Patient Behavior: Talkative, Cooperative Speech Pattern: Appropriate Voice Loudness: Mildly Loud Thought Process: Goal Oriented Thought Disorder: Being Controlled Hallucinations: Denies Suicidal Ideation: Denies Homicidal Ideation: Denies Insight/Judgement: Fair Sleep: Difficulty falling asleep Appetite: Weight loss Muscle strength/Tone: Mild Hypertonicity Gait/Station: Shuffling Additional Comments: Ambien 10mg po QHS PRN for insomnia Psychiatric Treatment Plan - Problem List (1) Alcohol dependence with uncomplicated withdrawal Current Visit: Yes (2) Nicotine dependence Current Visit: Yes Qualifiers: Nicotine product type: cigarettes Substance use status: in withdrawal Qualified Code(s): F17.213 - Nicotine dependence, cigarettes, with withdrawal (3) Sedative, hypnotic or anxiolytic dependence, uncomplicated Current Visit: Yes (4) Bipolar II disorder Current Visit: Yes (5) Cocaine dependence Current Visit: No Qualifiers: Substance use status: uncomplicated Qualified Code(s): F14.20 - Cocaine dependence, uncomplicated (6) Substance induced mood disorder Current Visit: No (7) Bipolar disorder Current Visit: No Comment: Self-report. (8) Cannabis dependence, uncomplicated Current Visit: No (9) History of bipolar disorder Current Visit: No (10) History of depression Current Visit: No (11) Opioid dependence with withdrawal Current Visit: No (12) Alcohol induced insomnia Current Visit: Yes Initial treatment plan: Seroquel 400mg po qhs. Ambien 10mg po QHS PRN for insomnia
[2017-08-16] MEDS ORDERED: COLLOIDAL OATMEAL 1 BAR EACH TP PRN (08:58)
--- NOTE | 2017-08-16 09:44 | PN ---
S CIWA - CIWA Score Nausea/Vomitin-Mild Nausea/No Vomiting Muscle Tremors: 3 Anxiety: 4-Mod. Anxious/Guarded Agitation: 4-Moderately Restless Paroxysmal Sweats: 1-Minimal Palms Moist Orientation: 0-Oriented Tacttile Disturbances: 0-None Auditory Disturbances: 0-None Visual Disturbances: 0-None Headache: 0-None Present CIWA-Ar Total Score: 13 BHS Progress Note (SOAP) Subjective: sweat tremor irritable agitation Objective: 08/16/17 09:43 Vital Signs Temperature 97.3 F L 08/16/17 06:00 Pulse Rate 117 H 08/16/17 06:00 Respiratory Rate 18 08/16/17 06:00 Blood Pressure 101/72 08/16/17 06:00 O2 Sat by Pulse Oximetry (%) Laboratory Last Values WBC 7.8 K/mm3 (4.0-10.0) 08/15/17 05:50 RBC 4.78 M/mm3 (3.60-5.2) 08/15/17 05:50 Hgb 14.6 GM/dL (10.7-15.3) 08/15/17 05:50 Hct 44.5 % (32.4-45.2) 08/15/17 05:50 MCV 93.0 fl (80-96) 08/15/17 05:50 MCH 30.5 pg (25.7-33.7) 08/15/17 05:50 MCHC 32.8 g/dl (32.0-36.0) 08/15/17 05:50 RDW 13.8 % (11.6-15.6) 08/15/17 05:50 Plt Count 301 K/MM3 (134-434) D 08/15/17 05:50 MPV 10.7 fl (7.5-11.1) 08/15/17 05:50 Sodium 139 mmol/L (136-145) 08/15/17 05:50 Potassium 3.2 mmol/L (3.5-5.1) L 08/15/17 05:50 Chloride 103 mmol/L (98-107) 08/15/17 05:50 Carbon Dioxide 29 mmol/L (21-32) 08/15/17 05:50 Anion Gap 7 (8-16) L 08/15/17 05:50 BUN 13 mg/dL (7-18) 08/15/17 05:50 Creatinine 0.8 mg/dL (0.55-1.02) 08/15/17 05:50 Creat Clearance w eGFR > 60 (>60) 08/15/17 05:50 Random Glucose 69 mg/dL (74-106) L 08/15/17 05:50 Calcium 9.1 mg/dL (8.5-10.1) 08/15/17 05:50 Total Bilirubin 0.8 mg/dL (0.2-1.0) D 08/15/17 05:50 AST 26 U/L (15-37) 08/15/17 05:50 ALT 45 U/L (12-78) 08/15/17 05:50 Alkaline Phosphatase 62 U/L (45-117) 08/15/17 05:50 Total Protein 7.2 g/dl (6.4-8.2) 08/15/17 05:50 Albumin 4.2 g/dl (3.4-5.0) 08/15/17 05:50 Urine Color Yellow 08/14/17 20:21 Urine Appearance Turbid 08/14/17 20:21 Urine pH 5.0 (5.0-8.0) 08/14/17 20:21 Ur Specific [place] 1.032 (1.001-1.035) 08/14/17 20:21 Urine Protein 1+ (NEGATIVE) H 08/14/17 20:21 Urine Glucose (UA) Negative (NEGATIVE) 08/14/17 20:21 Urine Ketones Trace (NEGATIVE) H 08/14/17 20:21 Urine Blood Negative (NEGATIVE) 08/14/17 20:21 Urine Nitrite Negative (NEGATIVE) 08/14/17 20:21 Urine Bilirubin Negative (NEGATIVE) 08/14/17 20:21 Urine Urobilinogen 4.0 e.u/dl mg/dL (0.2-1.0) H 08/14/17 20:21 Ur Leukocyte Esterase Negative (NEGATIVE) 08/14/17 20:21 Urine WBC (Auto) 19 /hpf (3-5) 08/14/17 20:21 Urine RBC (Auto) 2 /hpf (0-3) 08/14/17 20:21 Ur Epithelial Cells Rare /HPF (FEW) 08/14/17 20:21 Urine Bacteria Moderate /hpf (NONE SEEN) 08/14/17 20:21 Urine Mucus Few 08/14/17 20:21 RPR Titer Reactive 1:1 (NONREACTIVE) H 08/15/17 05:50 T.pallidum Ab (MHA) Previously reactive (NONREACTIVE) 08/15/17 05:50 lab noted Assessment: 08/16/17 09:44 withdrawal sx Plan: continue detox
[2017-08-16] MEDS: METHOCARBAMOL 500 MG TABLET PO SCH ×4 (11:10→22:29)
[2017-08-16] MEDS: FLUCONAZOLE 100 MG TABLET (UD) PO SCH (11:10)
[2017-08-16] MEDS: PRENATAL VITAMINS W/ FOLIC ACID TABLET (FP) PO SCH (11:11)
[2017-08-16] MEDS: RANITIDINE HCL 150 MG TABLET (FP) PO SCH ×2 (11:11→22:29)
[2017-08-16] MEDS: diazePAM 5 MG TABLET PO SCH ×2 (11:12→22:29)
[2017-08-16] MEDS: NICOTINE 21 MG/24 HOURS TOPICAL PATCH TD SCH (11:12)
[2017-08-16] MEDS ORDERED: HALOPERIDOL 2 MG TABLET PO STA (14:44)
[2017-08-16] MEDS ORDERED: diphenhydrAMINE HCL 25 MG CAPSULE (FP) PO STA (14:45)
[2017-08-16] MEDS: ZOLPIDEM TARTRATE 10 MG TABLET (PARK CARE ONLY) PO PRN (22:29)
[2017-08-16] MEDS: THIAMINE HCL 100 MG TABLET (FP) PO SCH (22:29)
[2017-08-16] MEDS: QUEtiapine FUMARATE 400 MG TABLET PO SCH (22:34)
[2017-08-17] MEDS: MICONAZOLE NITRATE 2% VAGINAL CREAM 45 GM TUBE VG SCH (01:07)
[2017-08-17] MEDS: diazePAM 5 MG TABLET PO PRN ×2 (02:12→12:52)
[2017-08-17] MEDS: GABAPENTIN 400 MG CAPSULE (FP) PO SCH ×3 (05:39→22:11)
[2017-08-17] MEDS ORDERED: metroNIDAZOLE 250 MG TABLET PO ONE (09:30)
[2017-08-17] MEDS ORDERED: PENICILLIN G BENZATHINE 2,400,000 UNIT/4 ML PFS IM ONE (09:33)
--- NOTE | 2017-08-17 09:53 | PN ---
BHS Progress Note (SOAP) Subjective: foul vaginal odor sweats body aches tired interrupted sleep Objective: 08/17/17 09:44 Vital Signs Temperature 96.6 F L 08/17/17 06:00 Pulse Rate 114 H 08/17/17 06:00 Respiratory Rate 18 08/17/17 06:00 Blood Pressure 142/73 08/17/17 06:00 O2 Sat by Pulse Oximetry (%) Laboratory Tests 08/14/17 08/15/17 08/15/17 20:21 05:50 05:50 WBC 7.8 RBC 4.78 Hgb 14.6 Hct 44.5 MCV 93.0 MCH 30.5 MCHC 32.8 RDW 13.8 Plt Count 301 D MPV 10.7 Sodium 139 Potassium 3.2 L Chloride 103 Carbon Dioxide 29 Anion Gap 7 L BUN 13 Creatinine 0.8 Creat Clearance w eGFR > 60 Random Glucose 69 L Calcium 9.1 Total Bilirubin 0.8 D AST 26 ALT 45 Alkaline Phosphatase 62 Total Protein 7.2 Albumin 4.2 Urine Color Yellow Urine Appearance Turbid Urine pH 5.0 Ur Specific [place] 1.032 Urine Protein 1+ H Urine Glucose (UA) Negative Urine Ketones Trace H Urine Blood Negative Urine Nitrite Negative Urine Bilirubin Negative Urine Urobilinogen 4.0 e.u/dl H Ur Leukocyte Esterase Negative Urine WBC (Auto) 19 Urine RBC (Auto) 2 Ur Epithelial Cells Rare Urine Bacteria Moderate Urine Mucus Few RPR Titer T.pallidum Ab (A) 08/15/17 05:50 WBC RBC Hgb Hct MCV MCH MCHC RDW Plt Count MPV Sodium Potassium Chloride Carbon Dioxide Anion Gap BUN Creatinine Creat Clearance w eGFR Random Glucose Calcium Total Bilirubin AST ALT Alkaline Phosphatase Total Protein Albumin Urine Color Urine Appearance Urine pH Ur Specific [place] Urine Protein Urine Glucose (UA) Urine Ketones Urine Blood Urine Nitrite Urine Bilirubin Urine Urobilinogen Ur Leukocyte Esterase Urine WBC (Auto) Urine RBC (Auto) Ur Epithelial Cells Urine Bacteria Urine Mucus RPR Titer Reactive 1:1 H T.pallidum Ab ([facility]) Previously reactive aaox3 ambulating no acute distress Assessment: 08/17/17 09:53 withdrawal sx Plan: continue detox increase fluids rocephin 250mg IM x one doxycycline 100mg bid
[2017-08-17] MEDS: DOXYCYCLINE HYCLATE 100 MG TABLET PO SCH ×2 (10:38→18:03)
[2017-08-17] MEDS: diazePAM 5 MG TABLET PO SCH ×2 (10:38→22:10)
[2017-08-17] MEDS: PRENATAL VITAMINS W/ FOLIC ACID TABLET (FP) PO SCH (10:38)
[2017-08-17] MEDS: METHOCARBAMOL 500 MG TABLET PO SCH ×4 (10:38→22:10)
[2017-08-17] MEDS: RANITIDINE HCL 150 MG TABLET (FP) PO SCH ×2 (10:38→22:11)
[2017-08-17] MEDS: NICOTINE 21 MG/24 HOURS TOPICAL PATCH TD SCH (10:39)
[2017-08-17] MEDS ORDERED: metroNIDAZOLE 250 MG TABLET PO SCH (14:00)
[2017-08-17] MEDS: THIAMINE HCL 100 MG TABLET (FP) PO SCH (22:10)
[2017-08-17] MEDS: QUEtiapine FUMARATE 400 MG TABLET PO SCH (22:10)
[2017-08-17] MEDS: ZOLPIDEM TARTRATE 10 MG TABLET (PARK CARE ONLY) PO PRN (22:10)
[2017-08-18] MEDS: hydrOXYzine PAMOATE 50 MG CAPSULE (FP) PO PRN ×2 (01:58→18:10)
[2017-08-18] MEDS: GABAPENTIN 400 MG CAPSULE (FP) PO SCH ×3 (06:13→22:37)
[2017-08-18] MEDS: HALOPERIDOL 1 MG TABLET (FP) PO PRN ×3 (06:13→22:36)
--- NOTE | 2017-08-18 08:53 | PN ---
S Progress Note (SOAP) Subjective: ALERT,IRRITABLE,ANXIOUS,INTERRUPTED SLEEP,TREMOR Objective: 08/18/17 08:55 Vital Signs Temperature 97.7 F 08/18/17 07:08 Pulse Rate 86 08/18/17 07:08 Respiratory Rate 18 08/18/17 07:08 Blood Pressure 122/84 08/18/17 07:08 O2 Sat by Pulse Oximetry (%) Assessment: 08/18/17 08:55 WITHDRAWAL SYMPTOM Plan: CONTINUE DETOX
[2017-08-18] MEDS ORDERED: diazePAM 5 MG TABLET PO SCH (10:00)
[2017-08-18] MEDS: RANITIDINE HCL 150 MG TABLET (FP) PO SCH ×2 (10:32→22:36)
[2017-08-18] MEDS: PRENATAL VITAMINS W/ FOLIC ACID TABLET (FP) PO SCH (10:32)
[2017-08-18] MEDS: DOXYCYCLINE HYCLATE 100 MG TABLET PO SCH ×2 (10:32→17:24)
[2017-08-18] MEDS: METHOCARBAMOL 500 MG TABLET PO SCH ×4 (10:32→22:36)
[2017-08-18] MEDS: NICOTINE 21 MG/24 HOURS TOPICAL PATCH TD SCH (10:59)
[2017-08-18] MEDS: ZOLPIDEM TARTRATE 10 MG TABLET (PARK CARE ONLY) PO PRN (22:36)
[2017-08-18] MEDS: THIAMINE HCL 100 MG TABLET (FP) PO SCH (22:36)
[2017-08-18] MEDS: QUEtiapine FUMARATE 400 MG TABLET PO SCH (22:37)
[2017-08-19] MEDS: GABAPENTIN 400 MG CAPSULE (FP) PO SCH (05:35)
[2017-08-19] MEDS: DOXYCYCLINE HYCLATE 100 MG TABLET PO SCH (10:06)
[2017-08-19] MEDS: PRENATAL VITAMINS W/ FOLIC ACID TABLET (FP) PO SCH (10:06)
[2017-08-19] MEDS: METHOCARBAMOL 500 MG TABLET PO SCH (10:06)
[2017-08-19] MEDS: NICOTINE 21 MG/24 HOURS TOPICAL PATCH TD SCH (10:07)
[2017-08-19] MEDS: RANITIDINE HCL 150 MG TABLET (FP) PO SCH (11:10)
[2017-08-19 11:47] VITALS: BP 108/73; PULSE 90; TEMP 96.9
--- NOTE | 2017-08-19 14:39 | DS ---
[facility] Detox Discharge Summary Admission Date: 08/14/17 Discharge Date: 08/19/17 - History Present History: Alcohol Dependence, Sedative Dependence Additional Comments: patient is waiting for inpatient rehab availability transit from detox completion to rehab patient has an argument with a female peer over using the phone patient wants to go home tonight and return 08/20/17 to [facility] for inpatient rehab admission patient understands the risks out of protective therapeutic environment - Physical Exam Results Vital Signs: Vital Signs Temperature 96.9 F L 08/19/17 11:46 Pulse Rate 90 08/19/17 11:46 Respiratory Rate 20 08/19/17 11:46 Blood Pressure 108/73 08/19/17 11:46 O2 Sat by Pulse Oximetry (%) Pertinent Admission Physical Exam Findings: withdrawal sx Vital Signs Temperature 96.9 F L 08/19/17 11:46 Pulse Rate 90 08/19/17 11:46 Respiratory Rate 20 08/19/17 11:46 Blood Pressure 108/73 08/19/17 11:46 O2 Sat by Pulse Oximetry (%) Laboratory Last Values WBC 7.8 K/mm3 (4.0-10.0) 08/15/17 05:50 RBC 4.78 M/mm3 (3.60-5.2) 08/15/17 05:50 Hgb 14.6 GM/dL (10.7-15.3) 08/15/17 05:50 Hct 44.5 % (32.4-45.2) 08/15/17 05:50 MCV 93.0 fl (80-96) 08/15/17 05:50 MCH 30.5 pg (25.7-33.7) 08/15/17 05:50 MCHC 32.8 g/dl (32.0-36.0) 08/15/17 05:50 RDW 13.8 % (11.6-15.6) 08/15/17 05:50 Plt Count 301 K/MM3 (134-434) D 08/15/17 05:50 MPV 10.7 fl (7.5-11.1) 08/15/17 05:50 Sodium 139 mmol/L (136-145) 08/15/17 05:50 Potassium 3.2 mmol/L (3.5-5.1) L 08/15/17 05:50 Chloride 103 mmol/L (98-107) 08/15/17 05:50 Carbon Dioxide 29 mmol/L (21-32) 08/15/17 05:50 Anion Gap 7 (8-16) L 08/15/17 05:50 BUN 13 mg/dL (7-18) 08/15/17 05:50 Creatinine 0.8 mg/dL (0.55-1.02) 08/15/17 05:50 Creat Clearance w eGFR > 60 (>60) 08/15/17 05:50 Random Glucose 69 mg/dL (74-106) L 08/15/17 05:50 Calcium 9.1 mg/dL (8.5-10.1) 08/15/17 05:50 Total Bilirubin 0.8 mg/dL (0.2-1.0) D 08/15/17 05:50 AST 26 U/L (15-37) 08/15/17 05:50 ALT 45 U/L (12-78) 08/15/17 05:50 Alkaline Phosphatase 62 U/L (45-117) 08/15/17 05:50 Total Protein 7.2 g/dl (6.4-8.2) 08/15/17 05:50 Albumin 4.2 g/dl (3.4-5.0) 08/15/17 05:50 Urine Color Yellow 08/14/17 20:21 Urine Appearance Turbid 08/14/17 20:21 Urine pH 5.0 (5.0-8.0) 08/14/17 20:21 Ur Specific [place] 1.032 (1.001-1.035) 08/14/17 20:21 Urine Protein 1+ (NEGATIVE) H 08/14/17 20:21 Urine Glucose (UA) Negative (NEGATIVE) 08/14/17 20:21 Urine Ketones Trace (NEGATIVE) H 08/14/17 20:21 Urine Blood Negative (NEGATIVE) 08/14/17 20:21 Urine Nitrite Negative (NEGATIVE) 08/14/17 20:21 Urine Bilirubin Negative (NEGATIVE) 08/14/17 20:21 Urine Urobilinogen 4.0 e.u/dl mg/dL (0.2-1.0) H 08/14/17 20:21 Ur Leukocyte Esterase Negative (NEGATIVE) 08/14/17 20:21 Urine WBC (Auto) 19 /hpf (3-5) 08/14/17 20:21 Urine RBC (Auto) 2 /hpf (0-3) 08/14/17 20:21 Ur Epithelial Cells Rare /HPF (FEW) 08/14/17 20:21 Urine Bacteria Moderate /hpf (NONE SEEN) 08/14/17 20:21 Urine Mucus Few 08/14/17 20:21 RPR Titer Reactive 1:1 (NONREACTIVE) H 08/15/17 05:50 T.pallidum Ab (MHA) Previously reactive (NONREACTIVE) 08/15/17 05:50 lab noted - Treatment Hospital Course: Detox Protocol Followed, Detoxed Safely, Responded well, Discharged Condition Good, Rehab Referral Accepted Patient has Accepted a Rehab Referral to: [facility] - Medication Discharge Medications: Ambulatory Orders Gabapentin [Neurontin -] 600 mg PO Q8H 06/20/17 Quetiapine Fumarate [Seroquel -] 600 mg PO HS 06/20/17 Quetiapine Fumarate [Seroquel -] 400 mg PO HS #30 tab 06/21/17 Quetiapine Fumarate [Seroquel -] 400 mg PO HS #30 tablet 08/15/17 - Diagnosis (1) Alcohol dependence with uncomplicated withdrawal Status: Acute (2) Neuropathy Status: Chronic (3) Sedative, hypnotic or anxiolytic dependence, uncomplicated Status: Acute (4) Bipolar II disorder Status: Suspected (5) GERD (gastroesophageal reflux disease) Status: Chronic Qualifiers: Esophagitis presence: without esophagitis Qualified Code(s): K21.9 - Gastro -esophageal reflux disease without esophagitis (6) Nicotine dependence Status: Acute Qualifiers: Nicotine product type: cigarettes Substance use status: in withdrawal Qualified Code(s): F17.213 - Nicotine dependence, cigarettes, with withdrawal - AMA Did Patient Leave Against Medical Advice: No
== END 2017-08-19 11:55 | disposition home or self-care (01) | DRG 897 ==
LOC: YASAS 11:36 → Y6N 15:06
PROVIDERS: ADMIT Internal Medicine; ATTEND Internal Medicine
PROC: HZ2ZZZZ Detoxification Services for Substance Abuse Treatment (ICD-10-PCS; principal; 2017-08-14)
DX: F10.230 Alcohol dependence with withdrawal, uncomplicated (principal); F31.81 Bipolar II disorder; F13.230 Sedative, hypnotic or anxiolytic dependence with withdrawal, uncomplicated; F10.282 Alcohol dependence with alcohol-induced sleep disorder; F12.20 Cannabis dependence, uncomplicated; F17.213 Nicotine dependence, cigarettes, with withdrawal; F19.24 Other psychoactive substance dependence with psychoactive substance-induced mood disorder; K21.9 Gastro-esophageal reflux disease without esophagitis; G62.9 Polyneuropathy, unspecified; N76.0 Acute vaginitis; Z87.42 Personal history of other diseases of the female genital tract; Z91.5 Personal history of self-harm
CPT/HCPCS: 36415; 80053; 81003; 81015; 85027; 86593; 86780; 93005; 93010

== ENCOUNTER 2017-10-06 11:06 | Inpatient (IN) | payer OTHER ==
[2017-10-06 11:31] VITALS: BMI 24.3
--- NOTE | 2017-10-06 11:57 | HP ---
CIWA Score - CIWA Score Nausea/Vomitin-Mild Nausea/No Vomiting Muscle Tremors: 4-Moderate,w/Arms Extend Anxiety: 4-Mod. Anxious/Guarded Agitation: 1-Slight > Activity Paroxysmal Sweats: 1-Minimal Palms Moist Orientation: 1-Uncertain about Date Tacttile Disturbances: 1-Very Mild Itch/Numbness Auditory Disturbances: 0-None Visual Disturbances: 1-Very Mild Sensitivity Headache: 2-Mild CIWA-Ar Total Score: 16 Admission ROS BHS - HPI Chief Complaint: I need help, I use whatever I can get my hands on - pills, weed, alcohol whatever Allergies/Adverse Reactions: Allergies Allergy/AdvReac Type Severity Reaction Status Date / Time No Known Allergies Allergy Verified 10/06/17 11:38 History of Present Illness: 47 yo woman here for detox - states she alternates xanax with alcohol. Also using cocaine and marijuana, history of multiple admissions for detox, most recently here 08/14/17. Left rehab due to argument with another patient. No seizures but does have black outs. States she uses oxycodone 'sometimes' but ' not regular' (urine tox negative for opiates, + methadone but last took methadone a week ago). Exam Limitations: Clinical Condition - Ebola screening Have you traveled outside of the country in the last 21 days: No (N) Have you had contact with anyone from an Ebola affected area: No Have you been sick,other than usual withdrawal symptoms: No Do you have a fever: No - Review of Systems Constitutional: Loss of Appetite, Malaise, Night Sweats, Changes in sleep EENT: reports: Blurred Vision Respiratory: reports: No Symptoms reported Cardiac: reports: Chest Tightness GI: reports: Nausea, Poor Appetite, Indigestion : reports: Frequency Musculoskeletal: reports: Back Pain Integumentary: reports: Dryness Neuro: reports: Headache, Numbness, Tremors Endocrine: reports: No Symptoms Reported Hematology: reports: No Symptoms Reported Psychiatric: reports: Judgement Intact, Mood/Affect Appropiate, Anxious Other Systems: Reviewed and Negative Patient History - Patient Medical History Hx Anemia: No Hx Asthma: No Hx Chronic Obstructive Pulmonary Disease (COPD): No Hx Cancer: No Hx Cardiac Disorders: No Hx Congestive Heart Failure: No Hx Hypertension: No Hx Hypercholesterolemia: No Hx Pacemaker: No HX Cerebrovascular Accident: No Hx Seizures: No Hx Dementia: No Hx Diabetes: No Hx Gastrointestinal Disorders: Yes (gerd) Hx Liver Disease: No Hx Genitourinary Disorders: No Hx Sexually Transmitted Disorders: No Hx Renal Disease (ESRD): No Hx Thyroid Disease: No Hx Human Immunodeficiency Virus (HIV): No (Last Tested: 08/2015: NEGATIVE.) Hx Hepatitis C: No (Last Tested approx. 4 years ago: NEGATIVE.) Hx Depression: No (On meds.) Hx Suicide Attempt: Yes (Pt tried to cut wrist at age 17 yrs old. PATIENT DENIES CURRENT SI / HI.) Hx Bipolar Disorder: Yes (On meds.) Hx Schizophrenia: No Other Medical History: BACK PAIN - Patient Surgical History Past Surgical History: Yes Hx Neurologic Surgery: No Hx Cataract Extraction: No Hx Cardiac Surgery: No Hx Lung Surgery: No Hx Breast Surgery: No Hx Breast Biopsy: No Hx Abdominal Surgery: Yes (hernia repair, @ 2008.) Hx Appendectomy: No Hx Cholecystectomy: No Hx Genitourinary Surgery: No Hx Section: No Hx Orthopedic Surgery: No Hx Hysterectomy: No Anesthesia Reaction: No - PPD History Previous Implant?: Yes Documented Results: Negative w/proof Implanted On Prior R Admission?: Yes Date: 05/09/17 Results: 0 mm PPD to be Administered?: No - Reproductive History Patient is a Female of Child Bearing Age (11 -55 yrs old): Yes Last Menstrual Period: 07/14/17 - Smoking Cessation Smoking history: Current every day smoker Have you smoked in the past 12 months: Yes Aproximately how many cigarettes per day: 20 Cigars Per Day: 0 Hx Chewing Tobacco Use: No Initiated information on smoking cessation: Yes 'Breaking Loose' booklet given: 10/06/17 (give on floor) - Substance & Tx. History Hx Alcohol Use: Yes Hx Substance Use: Yes Substance Use Type: Alcohol, Cocaine, Tranquilizers Hx Substance Use Treatment: Yes (detox, rehab) - Substances Abused alcohol Route: Oral Frequency: 3-6 times per week Amount used: 1 pint Age of first use: 17 Date of Last Use: 10/04/17 xanax Route: Oral Frequency: 3-6 times per week Amount used: 4mg Age of first use: 46 Date of Last Use: 10/03/17 crack Route: Oral Frequency: 3-6 times per week Amount used: $100 Age of first use: 47 Date of Last Use: 10/04/17 pot Route: Smoking Frequency: Daily Amount used: 1 joint Age of first use: 19 Date of Last Use: 10/05/17 street methadone Frequency: 1-2 times per week Amount used: $80 Age of first use: 46 Date of Last Use: 09/29/17 Family Disease History - Family Disease History Family Disease History: Other: Father (, 'old age'), Mother (, etoh, sepsis), Brother (no contact), Sister (no contact), Daughter (age 24 - mental health issues) Admission Physical Exam [facility] - Vital Signs Vital Signs: Vital Signs - 24 hr 10/06/17 11:30 Temperature 97.6 F Pulse Rate 94 H Respiratory 18 Rate Blood Pressure 100/57 - Physical General Appearance: Yes: Nourished, Appropriately Dressed, Moderate Distress, Thin, Tremorous, Anxious HEENTM: Yes: EOMI, Hearing grossly Normal, Normocephalic, Normal Voice, Pharynx Normal Respiratory: Yes: Normal Breath Sounds, No Respiratory Distress Neck: Yes: No masses,lesions,Nodules, Supple Breast: Yes: Breast Exam Deferred Cardiology: Yes: Regular Rhythm, Regular Rate Abdominal: Yes: Non Tender, Flat, Soft Genitourinary: Yes: Frequency Back: Yes: Normal Inspection Musculoskeletal: Yes: full range of Motion, Gait Steady, Back pain Extremities: Yes: Normal Inspection, Normal Range of Motion, Non-Tender Neurological: Yes: Alert, Motor Strength 5/5, Normal Mood/Affect, Normal Response Integumentary: Yes: Normal Color, Dry, Warm Lymphatic: Yes: Within Normal Limits - Diagnostic (1) Alcohol dependence with uncomplicated withdrawal Current Visit: Yes Status: Acute (2) Sedative, hypnotic or anxiolytic dependence, uncomplicated Current Visit: Yes Status: Acute (3) Syphilis contact, treated Current Visit: Yes Status: Acute (4) Nicotine dependence Current Visit: Yes Status: Acute Qualifiers: Nicotine product type: cigarettes Substance use status: in withdrawal Qualified Code(s): F17.213 - Nicotine dependence, cigarettes, with withdrawal (5) Cocaine dependence Current Visit: Yes Status: Acute Qualifiers: Substance use status: uncomplicated Qualified Code(s): F14.20 - Cocaine dependence, uncomplicated (6) Weight loss Current Visit: Yes Status: Chronic (7) Cannabis dependence, uncomplicated Current Visit: Yes Status: Chronic (8) Chronic back pain Current Visit: Yes Status: Chronic Qualifiers: Back pain location: low back pain Back pain laterality: bilateral Sciatica presence: without sciatica Qualified Code(s): M54.5 - Low back pain; G89.29 - Other chronic pain; G89.29 - Other chronic pain (9) GERD (gastroesophageal reflux disease) Current Visit: Yes Status: Chronic Qualifiers: Esophagitis presence: without esophagitis Qualified Code(s): K21.9 - Gastro -esophageal reflux disease without esophagitis Cleared for Admission [facility] - Detox or Rehab [facility] Level of Care: Medically Managed [facility] Breath Alcohol Content Breath Alcohol Content: 0 Urine Pregancy Test - Result Urine Test Results: Negative- NO Line Present Urine Drug Screen - Results Drug Screen Negative: No Urine Drug Screen Results: THC-Marijuana, SWETA-Cocaine, MTD-Methadone, TCA- Tricyclic Antidepress
[2017-10-06] MEDS ORDERED: diazePAM 5 MG TABLET PO ONE (12:06)
[2017-10-06] MEDS ORDERED: MAGNESIUM HYDROX 2400MG/30ML ORAL SUSPENSION 30 ML CUP PO PRN (12:06)
[2017-10-06] MEDS ORDERED: LOPERAMIDE HCL 2 MG CAPSULE PO PRN (12:06)
[2017-10-06] MEDS ORDERED: ACETAMINOPHEN 325 MG TABLET (FP) PO PRN (12:06)
[2017-10-06] MEDS ORDERED: NICOTINE POLACRILEX 4 MG GUM BC PRN (12:06)
[2017-10-06] MEDS ORDERED: guaiFENesin/D-METHORPHAN HB 10 ML UNIT-DOSE CUPS PO PRN (12:06)
[2017-10-06] MEDS ORDERED: P-EPHED 60MG/TRIPROLIDI 2.5MG TABLET PO PRN (12:06)
[2017-10-06] MEDS ORDERED: MAG HYDROX/AL HYDROX/SIMETH 30 ML UNIT-DOSE CUP PO PRN (12:06)
[2017-10-06] MEDS ORDERED: MAGNESIUM CITRATE 300 ML BOTTLE PO PRN (12:06)
[2017-10-06] MEDS ORDERED: MENTHOL/PHENOL 1 EACH UD MM PRN (12:06)
[2017-10-06] MEDS: diazePAM 5 MG TABLET PO SCH ×2 (14:16→22:21)
[2017-10-06] MEDS: NICOTINE 14 MG/24 HOURS TOPICAL PATCH TD SCH (14:25)
[2017-10-06] MEDS: IBUPROFEN 400 MG TABLET (FP) PO PRN (14:28)
[2017-10-06 17:40] LABS: URINE APPEARANCE TURBID; URINE BILIRUBIN NEGATIVE (<2.0 mg/dL); URINE BLOOD 3+ (NEGATIVE); URINE GLUCOSE (UA) NEGATIVE (NEGATIVE); URINE KETONE 2+ (NEGATIVE); URINE LEUK ESTERASE NEGATIVE (NEGATIVE); URINE NITRITE NEGATIVE (NEGATIVE); URINE UROBILINOGEN 4.0 E.U/dl mg/dL (0.2-1.0)
[2017-10-06] MEDS: diazePAM 5 MG TABLET PO PRN (17:41)
[2017-10-06 17:49] LABS: URINE PROTEIN 2+ (NEGATIVE)
[2017-10-06 17:50] LABS: URINE COLOR DK YELLOW
[2017-10-06 18:36] LABS: EPI CELLS RARE /HPF (FEW); URINE MUCUS MANY
[2017-10-06] MEDS: THIAMINE HCL 100 MG TABLET (FP) PO SCH (22:21)
[2017-10-06] MEDS: MELATONIN 5 MG TABLETS PO PRN (23:44)
[2017-10-07] MEDS: diazePAM 5 MG TABLET PO PRN ×3 (02:35→16:01)
[2017-10-07] MEDS: diazePAM 5 MG TABLET PO SCH ×3 (05:28→22:29)
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
--- NOTE | 2017-10-07 09:22 | EKG ---
Test Reason : Blood Pressure : / mmHG Vent. Rate : 074 BPM Atrial Rate : 074 BPM P-R Int : 126 ms QRS Dur : 094 ms QT Int : 400 ms P-R-T Axes : 066 071 060 degrees QTc Int : 444 ms NORMAL SINUS RHYTHM POSSIBLE LEFT ATRIAL ENLARGEMENT LEFT VENTRICULAR HYPERTROPHY ABNORMAL ECG WHEN COMPARED WITH ECG OF 14-AUG-2017 16:18, NO SIGNIFICANT CHANGE WAS FOUND Confirmed by MALICK JIM, EILEEN ([id number]) on 10/07/2017 9:22:10 AM Referred By: Confirmed By:EILEEN TERESA MD
[2017-10-07 09:57] LABS: HEMATOCRIT 38.8 % (32.4-45.2); HEMOGLOBIN 13.2 GM/dL (10.7-15.3); MCH 32.4 pg (25.7-33.7); MCHC 34.2 g/dl (32.0-36.0); MEAN CELL VOLUME 94.7 fl (80-96); PLATELET COUNT 213 K/MM3 (134-434); RBC 4.09 M/mm3 (3.60-5.2); WHITE BLOOD COUNT 4.2 K/mm3 (4.0-10.0)
[2017-10-07 10:05] LABS: CHLORIDE 104 mmol/L (98-107); POTASSIUM 3.8 mmol/L (3.5-5.1); SODIUM 139 mmol/L (136-145)
[2017-10-07 10:19] LABS: ALK PHOS 122 U/L (45-117); ANION GAP 4 (8-16); BILIRUBIN,TOTAL 0.3 mg/dL (0.2-1.0); BLOOD UREA NITROGEN 13 mg/dL (7-18); CALCIUM 8.5 mg/dL (8.5-10.1); CO2 31 mmol/L (21-32); CREATININE 0.6 mg/dL (0.55-1.02); GLUCOSE,RANDOM 85 mg/dL (74-106); SGOT/AST 334 U/L (15-37)
[2017-10-07 10:28] LABS: SGPT/ALT 550 U/L (12-78)
[2017-10-07] MEDS: PRENATAL VITAMINS W/ FOLIC ACID TABLET (FP) PO SCH (10:34)
[2017-10-07] MEDS: NICOTINE 14 MG/24 HOURS TOPICAL PATCH TD SCH (10:34)
--- NOTE | 2017-10-07 11:17 | PN ---
S CIWA - CIWA Score Nausea/Vomitin-Mild Nausea/No Vomiting Muscle Tremors: 4-Moderate,w/Arms Extend Anxiety: 3 Agitation: 3 Paroxysmal Sweats: 1-Minimal Palms Moist Orientation: 0-Oriented Tacttile Disturbances: 1-Very Mild Itch/Numbness Auditory Disturbances: 0-None Visual Disturbances: 0-None Headache: 0-None Present CIWA-Ar Total Score: 13 BHS Progress Note (SOAP) Subjective: sweat tremor restlessness trouble sleeping mild gi distress Objective: 10/07/17 11:16 Vital Signs Temperature 97.9 F 10/07/17 10:00 Pulse Rate 73 10/07/17 10:00 Respiratory Rate 18 10/07/17 10:00 Blood Pressure 117/68 10/07/17 10:00 O2 Sat by Pulse Oximetry (%) Laboratory Last Values WBC 4.2 K/mm3 (4.0-10.0) D 10/07/17 07:30 RBC 4.09 M/mm3 (3.60-5.2) 10/07/17 07:30 Hgb 13.2 GM/dL (10.7-15.3) 10/07/17 07:30 Hct 38.8 % (32.4-45.2) 10/07/17 07:30 MCV 94.7 fl (80-96) 10/07/17 07:30 MCH 32.4 pg (25.7-33.7) 10/07/17 07:30 MCHC 34.2 g/dl (32.0-36.0) 10/07/17 07:30 RDW 14.0 % (11.6-15.6) 10/07/17 07:30 Plt Count 213 K/MM3 (134-434) D 10/07/17 07:30 MPV 10.0 fl (7.5-11.1) 10/07/17 07:30 Sodium 139 mmol/L (136-145) 10/07/17 07:30 Potassium 3.8 mmol/L (3.5-5.1) 10/07/17 07:30 Chloride 104 mmol/L (98-107) 10/07/17 07:30 Carbon Dioxide 31 mmol/L (21-32) 10/07/17 07:30 Anion Gap 4 (8-16) L 10/07/17 07:30 BUN 13 mg/dL (7-18) 10/07/17 07:30 Creatinine 0.6 mg/dL (0.55-1.02) 10/07/17 07:30 Creat Clearance w eGFR > 60 (>60) 10/07/17 07:30 Random Glucose 85 mg/dL (74-106) 10/07/17 07:30 Calcium 8.5 mg/dL (8.5-10.1) 10/07/17 07:30 Total Bilirubin 0.3 mg/dL (0.2-1.0) D 10/07/17 07:30 AST 334 U/L (15-37) H 10/07/17 07:30 ALT 550 U/L (12-78) H 10/07/17 07:30 Alkaline Phosphatase 122 U/L (45-117) H 10/07/17 07:30 Total Protein 6.0 g/dl (6.4-8.2) L 10/07/17 07:30 Albumin 3.0 g/dl (3.4-5.0) L 10/07/17 07:30 Urine Color Dk yellow 10/06/17 17:00 Urine Appearance Turbid 10/06/17 17:00 Urine pH 5.0 (5.0-8.0) 10/06/17 17:00 Ur Specific [place] 1.026 (1.001-1.035) 10/06/17 17:00 Urine Protein 2+ (NEGATIVE) H 10/06/17 17:00 Urine Glucose (UA) Negative (NEGATIVE) 10/06/17 17:00 Urine Ketones 2+ (NEGATIVE) H 10/06/17 17:00 Urine Blood 3+ (NEGATIVE) H 10/06/17 17:00 Urine Nitrite Negative (NEGATIVE) 10/06/17 17:00 Urine Bilirubin Negative (<2.0 mg/dL) 10/06/17 17:00 Urine Urobilinogen 4.0 e.u/dl mg/dL (0.2-1.0) H 10/06/17 17:00 Ur Leukocyte Esterase Negative (NEGATIVE) 10/06/17 17:00 Urine WBC (Auto) 51 /hpf (3-5) 10/06/17 17:00 Urine RBC (Auto) 220 /hpf (0-3) 10/06/17 17:00 Ur Epithelial Cells Rare /HPF (FEW) 10/06/17 17:00 Urine Mucus Many 10/06/17 17:00 lab nted Assessment: 10/07/17 11:17 withdrawal sx Plan: continue detox
[2017-10-07 11:20] LABS: RPR REACTIVE 1:1 (NONREACTIVE)
[2017-10-07 11:21] LABS: TREPONEMA ANTIBODY PREVIOUSLY REACTIVE (NONREACTIVE)
[2017-10-07] MEDS: hydrOXYzine PAMOATE 25 MG CAPSULE (FP) PO PRN ×2 (12:43→18:46)
[2017-10-07] MEDS: GABAPENTIN 300 MG CAPSULE (FP) PO SCH ×2 (14:06→22:29)
[2017-10-07] MEDS: IBUPROFEN 400 MG TABLET (FP) PO PRN (20:08)
[2017-10-07] MEDS ORDERED: QUEtiapine FUMARATE 200 MG TABLET PO SCH (22:00)
[2017-10-07] MEDS: THIAMINE HCL 100 MG TABLET (FP) PO SCH (22:29)
[2017-10-07] MEDS: MELATONIN 5 MG TABLETS PO PRN (22:30)
[2017-10-08] MEDS: GABAPENTIN 300 MG CAPSULE (FP) PO SCH (05:16)
[2017-10-08] MEDS: diazePAM 5 MG TABLET PO PRN (05:17)
[2017-10-08] MEDS ORDERED: diazePAM 5 MG TABLET PO SCH (10:00)
[2017-10-08 10:20] VITALS: BP 116/66; PULSE 77; TEMP 97.7
[2017-10-08] MEDS: PRENATAL VITAMINS W/ FOLIC ACID TABLET (FP) PO SCH (10:32)
[2017-10-08] MEDS: NICOTINE 14 MG/24 HOURS TOPICAL PATCH TD SCH (10:33)
--- NOTE | 2017-10-08 10:34 | PN ---
S CIWA - CIWA Score Nausea/Vomitin-Mild Nausea/No Vomiting Muscle Tremors: 3 Anxiety: 4-Mod. Anxious/Guarded Agitation: 3 Paroxysmal Sweats: 1-Minimal Palms Moist Orientation: 0-Oriented Tacttile Disturbances: 0-None Auditory Disturbances: 0-None Visual Disturbances: 0-None Headache: 0-None Present CIWA-Ar Total Score: 12 BHS Progress Note (SOAP) Subjective: sweat tremor anxiety restlessness Objective: 10/08/17 10:36 Vital Signs Temperature 97.7 F 10/08/17 10:19 Pulse Rate 77 10/08/17 10:19 Respiratory Rate 18 10/08/17 10:19 Blood Pressure 116/66 10/08/17 10:19 O2 Sat by Pulse Oximetry (%) Laboratory Last Values WBC 4.2 K/mm3 (4.0-10.0) D 10/07/17 07:30 RBC 4.09 M/mm3 (3.60-5.2) 10/07/17 07:30 Hgb 13.2 GM/dL (10.7-15.3) 10/07/17 07:30 Hct 38.8 % (32.4-45.2) 10/07/17 07:30 MCV 94.7 fl (80-96) 10/07/17 07:30 MCH 32.4 pg (25.7-33.7) 10/07/17 07:30 MCHC 34.2 g/dl (32.0-36.0) 10/07/17 07:30 RDW 14.0 % (11.6-15.6) 10/07/17 07:30 Plt Count 213 K/MM3 (134-434) D 10/07/17 07:30 MPV 10.0 fl (7.5-11.1) 10/07/17 07:30 Sodium 139 mmol/L (136-145) 10/07/17 07:30 Potassium 3.8 mmol/L (3.5-5.1) 10/07/17 07:30 Chloride 104 mmol/L (98-107) 10/07/17 07:30 Carbon Dioxide 31 mmol/L (21-32) 10/07/17 07:30 Anion Gap 4 (8-16) L 10/07/17 07:30 BUN 13 mg/dL (7-18) 10/07/17 07:30 Creatinine 0.6 mg/dL (0.55-1.02) 10/07/17 07:30 Creat Clearance w eGFR > 60 (>60) 10/07/17 07:30 Random Glucose 85 mg/dL (74-106) 10/07/17 07:30 Calcium 8.5 mg/dL (8.5-10.1) 10/07/17 07:30 Total Bilirubin 0.3 mg/dL (0.2-1.0) D 10/07/17 07:30 AST 334 U/L (15-37) H 10/07/17 07:30 ALT 550 U/L (12-78) H 10/07/17 07:30 Alkaline Phosphatase 122 U/L (45-117) H 10/07/17 07:30 Total Protein 6.0 g/dl (6.4-8.2) L 10/07/17 07:30 Albumin 3.0 g/dl (3.4-5.0) L 10/07/17 07:30 Urine Color Dk yellow 10/06/17 17:00 Urine Appearance Turbid 10/06/17 17:00 Urine pH 5.0 (5.0-8.0) 10/06/17 17:00 Ur Specific [place] 1.026 (1.001-1.035) 10/06/17 17:00 Urine Protein 2+ (NEGATIVE) H 10/06/17 17:00 Urine Glucose (UA) Negative (NEGATIVE) 10/06/17 17:00 Urine Ketones 2+ (NEGATIVE) H 10/06/17 17:00 Urine Blood 3+ (NEGATIVE) H 10/06/17 17:00 Urine Nitrite Negative (NEGATIVE) 10/06/17 17:00 Urine Bilirubin Negative (<2.0 mg/dL) 10/06/17 17:00 Urine Urobilinogen 4.0 e.u/dl mg/dL (0.2-1.0) H 10/06/17 17:00 Ur Leukocyte Esterase Negative (NEGATIVE) 10/06/17 17:00 Urine WBC (Auto) 51 /hpf (3-5) 10/06/17 17:00 Urine RBC (Auto) 220 /hpf (0-3) 10/06/17 17:00 Ur Epithelial Cells Rare /HPF (FEW) 10/06/17 17:00 Urine Mucus Many 10/06/17 17:00 RPR Titer Reactive 1:1 (NONREACTIVE) H 10/07/17 07:30 T.pallidum Ab (MHA) Previously reactive (NONREACTIVE) 10/07/17 07:30 lab noted repeat ast alt rpr treated by history Assessment: 10/08/17 10:39 withdrawal sx Plan: continue detox
--- NOTE | 2017-10-08 11:47 | DS ---
[facility] Detox Discharge Summary Admission Date: 10/06/17 Discharge Date: 10/08/17 - History Present History: Alcohol Dependence Additional Comments: 47 years old female is alert oriented x 3 coherent stead gait no acute distress wants to terminate the detox process and leave the facility "I know what I am doing" patient denies suicidal denies homocidal no self destructive behavior patient reports that she wants to remain sober and knows what to day patient agrees to attend community support self help meeting cardiac s1s2 lung clear bilaterally abdomen soft non tenderness extremities full range of motion - Physical Exam Results Vital Signs: Vital Signs Temperature 97.7 F 10/08/17 10:19 Pulse Rate 77 10/08/17 10:19 Respiratory Rate 18 10/08/17 10:19 Blood Pressure 116/66 10/08/17 10:19 O2 Sat by Pulse Oximetry (%) Pertinent Admission Physical Exam Findings: withdrawal sx Vital Signs Temperature 97.7 F 10/08/17 10:19 Pulse Rate 77 10/08/17 10:19 Respiratory Rate 18 10/08/17 10:19 Blood Pressure 116/66 10/08/17 10:19 O2 Sat by Pulse Oximetry (%) Laboratory Last Values WBC 4.2 K/mm3 (4.0-10.0) D 10/07/17 07:30 RBC 4.09 M/mm3 (3.60-5.2) 10/07/17 07:30 Hgb 13.2 GM/dL (10.7-15.3) 10/07/17 07:30 Hct 38.8 % (32.4-45.2) 10/07/17 07:30 MCV 94.7 fl (80-96) 10/07/17 07:30 MCH 32.4 pg (25.7-33.7) 10/07/17 07:30 MCHC 34.2 g/dl (32.0-36.0) 10/07/17 07:30 RDW 14.0 % (11.6-15.6) 10/07/17 07:30 Plt Count 213 K/MM3 (134-434) D 10/07/17 07:30 MPV 10.0 fl (7.5-11.1) 10/07/17 07:30 Sodium 139 mmol/L (136-145) 10/07/17 07:30 Potassium 3.8 mmol/L (3.5-5.1) 10/07/17 07:30 Chloride 104 mmol/L (98-107) 10/07/17 07:30 Carbon Dioxide 31 mmol/L (21-32) 10/07/17 07:30 Anion Gap 4 (8-16) L 10/07/17 07:30 BUN 13 mg/dL (7-18) 10/07/17 07:30 Creatinine 0.6 mg/dL (0.55-1.02) 10/07/17 07:30 Creat Clearance w eGFR > 60 (>60) 10/07/17 07:30 Random Glucose 85 mg/dL (74-106) 10/07/17 07:30 Calcium 8.5 mg/dL (8.5-10.1) 10/07/17 07:30 Total Bilirubin 0.3 mg/dL (0.2-1.0) D 10/07/17 07:30 AST 334 U/L (15-37) H 10/07/17 07:30 ALT 550 U/L (12-78) H 10/07/17 07:30 Alkaline Phosphatase 122 U/L (45-117) H 10/07/17 07:30 Total Protein 6.0 g/dl (6.4-8.2) L 10/07/17 07:30 Albumin 3.0 g/dl (3.4-5.0) L 10/07/17 07:30 Urine Color Dk yellow 10/06/17 17:00 Urine Appearance Turbid 10/06/17 17:00 Urine pH 5.0 (5.0-8.0) 10/06/17 17:00 Ur Specific [place] 1.026 (1.001-1.035) 10/06/17 17:00 Urine Protein 2+ (NEGATIVE) H 10/06/17 17:00 Urine Glucose (UA) Negative (NEGATIVE) 10/06/17 17:00 Urine Ketones 2+ (NEGATIVE) H 10/06/17 17:00 Urine Blood 3+ (NEGATIVE) H 10/06/17 17:00 Urine Nitrite Negative (NEGATIVE) 10/06/17 17:00 Urine Bilirubin Negative (<2.0 mg/dL) 10/06/17 17:00 Urine Urobilinogen 4.0 e.u/dl mg/dL (0.2-1.0) H 10/06/17 17:00 Ur Leukocyte Esterase Negative (NEGATIVE) 10/06/17 17:00 Urine WBC (Auto) 51 /hpf (3-5) 10/06/17 17:00 Urine RBC (Auto) 220 /hpf (0-3) 10/06/17 17:00 Ur Epithelial Cells Rare /HPF (FEW) 10/06/17 17:00 Urine Mucus Many 10/06/17 17:00 RPR Titer Reactive 1:1 (NONREACTIVE) H 10/07/17 07:30 T.pallidum Ab (MHA) Previously reactive (NONREACTIVE) 10/07/17 07:30 lab noted - Treatment Hospital Course: Detox Protocol Followed, Responded well Patient has Accepted a Rehab Referral to: as per counselor arranged - Medication Discharge Medications: Ambulatory Orders Gabapentin 600 mg PO TID #90 tablet 10/07/17 Quetiapine Fumarate [Seroquel -] 200 mg PO HS #30 tablet 10/07/17 - Diagnosis (1) Alcohol dependence with uncomplicated withdrawal Current Visit: Yes Status: Acute (2) Sedative, hypnotic or anxiolytic dependence, uncomplicated Current Visit: Yes Status: Acute (3) Nicotine dependence Current Visit: Yes Status: Chronic Qualifiers: Nicotine product type: cigarettes Substance use status: in withdrawal Qualified Code(s): F17.213 - Nicotine dependence, cigarettes, with withdrawal - AMA Did Patient Leave Against Medical Advice: Yes
[2017-10-10] MEDS ORDERED: diazePAM 5 MG TABLET PO SCH (10:00)
== END 2017-10-08 11:35 | disposition left against medical advice (07) | DRG 894 ==
LOC: YASAS 11:06 → Y6N 12:07
PROVIDERS: ADMIT Internal Medicine; ATTEND Internal Medicine
PROC: HZ2ZZZZ Detoxification Services for Substance Abuse Treatment (ICD-10-PCS; principal; 2017-10-06)
DX: F11.23 Opioid dependence with withdrawal (principal); F14.20 Cocaine dependence, uncomplicated; F19.282 Other psychoactive substance dependence with psychoactive substance-induced sleep disorder; F13.230 Sedative, hypnotic or anxiolytic dependence with withdrawal, uncomplicated; F10.230 Alcohol dependence with withdrawal, uncomplicated; F12.20 Cannabis dependence, uncomplicated; F17.213 Nicotine dependence, cigarettes, with withdrawal; F19.24 Other psychoactive substance dependence with psychoactive substance-induced mood disorder; F31.9 Bipolar disorder, unspecified; G62.9 Polyneuropathy, unspecified; M54.5 Low back pain; G89.29 Other chronic pain; Z86.19 Personal history of other infectious and parasitic diseases; Z91.5 Personal history of self-harm
CPT/HCPCS: 36415; 80053; 81003; 81015; 85027; 86593; 86780; 93005; 93010

== ENCOUNTER 2017-11-07 13:14 | Inpatient (IN) | payer OTHER ==
[2017-11-07 14:28] VITALS: BMI 24.7
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
[2017-11-07] MEDS ORDERED: guaiFENesin/D-METHORPHAN HB 10 ML UNIT-DOSE CUPS PO PRN (16:26)
[2017-11-07] MEDS ORDERED: LOPERAMIDE HCL 2 MG CAPSULE PO PRN (16:26)
[2017-11-07] MEDS ORDERED: IBUPROFEN 400 MG TABLET (FP) PO PRN (16:26)
[2017-11-07] MEDS ORDERED: MENTHOL/PHENOL 1 EACH UD MM PRN (16:26)
[2017-11-07] MEDS ORDERED: P-EPHED 60MG/TRIPROLIDI 2.5MG TABLET PO PRN (16:26)
[2017-11-07] MEDS ORDERED: MAGNESIUM CITRATE 300 ML BOTTLE PO PRN (16:26)
[2017-11-07] MEDS ORDERED: ACETAMINOPHEN 325 MG TABLET (FP) PO PRN (16:26)
[2017-11-07] MEDS ORDERED: MAG HYDROX/AL HYDROX/SIMETH 30 ML UNIT-DOSE CUP PO PRN (16:26)
[2017-11-07] MEDS ORDERED: MAGNESIUM HYDROX 2400MG/30ML ORAL SUSPENSION 30 ML CUP PO PRN (16:26)
[2017-11-07] MEDS ORDERED: diazePAM 5 MG TABLET PO ONE (16:45)
[2017-11-07] MEDS ORDERED: MELATONIN 5 MG TABLETS PO PRN (22:00)
[2017-11-07] MEDS: cloNIDine HCL 0.1 MG TABLET PO SCH (22:07)
[2017-11-07] MEDS: THIAMINE HCL 100 MG TABLET (FP) PO SCH (22:07)
[2017-11-07] MEDS: diazePAM 5 MG TABLET PO PRN (22:07)
[2017-11-07] MEDS: diazePAM 5 MG TABLET PO SCH (23:01)
[2017-11-07 23:13] LABS: URINE APPEARANCE TURBID; URINE BILIRUBIN NEGATIVE (<2.0 mg/dL); URINE COLOR AMBER; URINE GLUCOSE (UA) NEGATIVE (NEGATIVE); URINE KETONE NEGATIVE (NEGATIVE); URINE LEUK ESTERASE NEGATIVE (NEGATIVE); URINE NITRITE NEGATIVE (NEGATIVE); URINE PROTEIN NEGATIVE (NEGATIVE)
[2017-11-08] MEDS: diazePAM 5 MG TABLET PO SCH ×4 (05:08→23:12)
[2017-11-08] MEDS: diazePAM 5 MG TABLET PO PRN (07:12)
--- NOTE | 2017-11-08 07:35 | CONSULT ---
[facility] Psychiatric Consult - Data Date of interview: 11/08/17 Admission source: [facility] Identifying data: This is 47 years old female, single mother of four, unemployed , homeless, with a history of psychiatric hospitalizations, with psychiatric hospitalization history, with history of Bipolar disorder, seeking for detox due to abusing Opioids, Cocaine, Alcohol and Nicotine. Substance Abuse History: Smoking history: Current every day smoker. Have you smoked in the past 12 months: Yes. Aproximately how many cigarettes per day: 20. Cigars Per Day: 0. Hx Chewing Tobacco Use: No. Initiated information on smoking cessation: Yes. 'Breaking Loose' booklet given: 11/07/17. - Substance & Tx. History. Hx Alcohol Use: Yes. Hx Substance Use: Yes. Substance Use Type : Alcohol, Cocaine, Marijuana, Tranquilizers. Hx Substance Use Treatment: Yes ( [facility] LAST -10/06/17 TO 10/08/17 NOT COMPLETED ). - Substances Abused. Alcohol. Route: Oral. Frequency: Daily. Amount used: 3 cans 4 [place]. Age of first use: 19. Date of Last Use: 11/07/17. Alprazolam (Xanax). Route: Oral. Frequency: Daily. Amount used: 8mg. Age of first use: 46. Date of Last Use: 11/07/17. Cocaine. Route: Smoking. Frequency: Daily. Amount used: $200. Age of first use: 46. Date of Last Use: 11/03/17. Heroin. Route: Inhalation. Frequency: Daily. Amount used: 2 bags. Age of first use: 46. Date of Last Use: 11/03/17 Medical History: Weigth loss history, Syphilis history, LBP, GERD Psychiatric History: Patient reports history of Bipolar disorder, reports most recent psychiatric hospitalization on 2016 for safety, reports suicidal attempt at age [age] years old, after cutting her left forearm, stitches applyed, denies suicidal ideation since then. Patient reports taking prior to admission: Seroquel 200mg poqd, 4300mg po qhs. Patient warned regarding possible oversedation, patient insist to restart preadmission medications at the same dosages. Physical/Sexual Abuse/Trauma History: Denies Additional Comment: Seroquel 200mg poqd, 4300mg po qhs Mental Status Exam - Mental Status Exam Alert and Oriented to: Person Cognitive Function: Fair Patient Appearance: Unkempt Mood: Sad Affect: Mood Congruent Patient Behavior: Cooperative Speech Pattern: Delayed Voice Loudness: Mildly Soft/Quiet Thought Process: Goal Oriented Thought Disorder: Being Controlled Hallucinations: Denies Suicidal Ideation: Denies Homicidal Ideation: Denies Insight/Judgement: Fair Sleep: Difficulty falling asleep Appetite: Weight loss Muscle strength/Tone: Mild Hypotonicity Gait/Station: Shuffling Additional Comments: Seroquel 200mg poqd, 4300mg po qhs Psychiatric Findings - Problem List (Ambia 1, 2,3) (1) Alcohol dependence with uncomplicated withdrawal Current Visit: No Status: Acute (2) Alcohol induced insomnia Current Visit: No Status: Acute (3) Cannabis dependence, uncomplicated Current Visit: No Status: Acute (4) Cocaine dependence Current Visit: No Status: Acute Qualifiers: Substance use status: uncomplicated Qualified Code(s): F14.20 - Cocaine dependence, uncomplicated (5) Opioid dependence with withdrawal Current Visit: No Status: Acute (6) Sedative, hypnotic or anxiolytic dependence, uncomplicated Current Visit: No Status: Acute (7) Substance induced mood disorder Current Visit: No Status: Acute (8) Substance-induced sleep disorder Current Visit: No Status: Acute - Initial Treatment Plan Initial Treatment Plan: Seroquel 200mg poqd, 4300mg po qhs
[2017-11-08] MEDS ORDERED: FLUCONAZOLE 50 MG TABLET PO ONE (08:15)
--- NOTE | 2017-11-08 09:44 | PN ---
S CIWA - CIWA Score Nausea/Vomitin Muscle Tremors: 3 Anxiety: 3 Agitation: 3 Paroxysmal Sweats: 1-Minimal Palms Moist Orientation: 0-Oriented Tacttile Disturbances: 1-Very Mild Itch/Numbness Auditory Disturbances: 1-Very Mild Visual Disturbances: 0-None Headache: 2-Mild CIWA-Ar Total Score: 17 BHS Progress Note (SOAP) Subjective: ALERT,IRRITABLE,ANXIOUS,INTERRUPTED SLEEP,TREMOR,PAIN IN THE BODY AND BACK Objective: 11/08/17 09:40 Vital Signs Temperature 97.2 F L 11/08/17 09:17 Pulse Rate 61 11/08/17 09:17 Respiratory Rate 16 11/08/17 09:17 Blood Pressure 93/53 11/08/17 09:17 O2 Sat by Pulse Oximetry (%) 11/08/17 09:40 EKG LVH PRO;[place] QT 422/458 NO CHEST PAIN,NO SOB,NO DIZZINESS 11/08/17 09:42 Laboratory Last Values Urine Color Elissa 11/07/17 Unknown Urine Appearance Turbid 11/07/17 Unknown Urine pH 5.0 (5.0-8.0) 11/07/17 Unknown Ur Specific [place] 1.024 (1.001-1.035) 11/07/17 Unknown Urine Protein Negative (NEGATIVE) 11/07/17 Unknown Urine Glucose (UA) Negative (NEGATIVE) 11/07/17 Unknown Urine Ketones Negative (NEGATIVE) 11/07/17 Unknown Urine Blood Negative (NEGATIVE) 11/07/17 Unknown Urine Nitrite Negative (NEGATIVE) 11/07/17 Unknown Urine Bilirubin Negative (<2.0 mg/dL) 11/07/17 Unknown Urine Urobilinogen 2.0 mg/dL (0.2-1.0) H 11/07/17 Unknown Ur Leukocyte Esterase Negative (NEGATIVE) 11/07/17 Unknown LABS PENDING Assessment: 11/08/17 09:43 WITHDRAWAL SYMPTOM Plan: CONTINUE DETOX,DIFLUCAN 150 MGS PO ONCE FOR VAGINITIS YEAST INFECTION
[2017-11-08 09:59] LABS: HEMATOCRIT 39.1 % (32.4-45.2); HEMOGLOBIN 13.5 GM/dL (10.7-15.3); MCH 32.6 pg (25.7-33.7); MCHC 34.5 g/dl (32.0-36.0); MEAN CELL VOLUME 94.5 fl (80-96); MEAN PLT VOLUME 10.7 fl (7.5-11.1); PLATELET COUNT 271 K/MM3 (134-434); RBC 4.14 M/mm3 (3.60-5.2); RDW 13.7 % (11.6-15.6); WHITE BLOOD COUNT 4.6 K/mm3 (4.0-10.0)
[2017-11-08] MEDS: PRENATAL VITAMINS W/ FOLIC ACID TABLET (FP) PO SCH (10:00)
[2017-11-08] MEDS: cloNIDine HCL 0.1 MG TABLET PO SCH ×2 (10:00→23:12)
[2017-11-08] MEDS: QUEtiapine FUMARATE 200 MG TABLET PO SCH (10:10)
[2017-11-08 10:14] LABS: CHLORIDE 102 mmol/L (98-107); POTASSIUM 3.5 mmol/L (3.5-5.1); SODIUM 139 mmol/L (136-145)
[2017-11-08 10:42] LABS: ALK PHOS 99 U/L (45-117); ANION GAP 8 (8-16); BILIRUBIN,TOTAL 0.6 mg/dL (0.2-1.0); BLOOD UREA NITROGEN 10 mg/dL (7-18); CALCIUM 8.9 mg/dL (8.5-10.1); CO2 29 mmol/L (21-32); CREATININE 0.6 mg/dL (0.55-1.02); GLUCOSE,RANDOM 73 mg/dL (74-106); SGOT/AST 75 U/L (15-37); SGPT/ALT 307 U/L (12-78); TOT PROT 7.1 g/dl (6.4-8.2)
[2017-11-08 14:37] LABS: RPR REACTIVE 1:1 (NONREACTIVE)
[2017-11-08 14:38] LABS: TREPONEMA ANTIBODY PREVIOUSLY REACTIVE (NONREACTIVE)
[2017-11-08] MEDS ORDERED: LACTULOSE 20 GM/30 ML UDC (FOR ORAL USE ONLY) PO PRN (17:15)
--- NOTE | 2017-11-08 17:21 | PN ---
[facility] Progress Note Note: Vital Signs Temperature 97.1 F L 11/08/17 14:00 Pulse Rate 64 11/08/17 14:00 Respiratory Rate 16 11/08/17 14:00 Blood Pressure 91/53 11/08/17 14:00 O2 Sat by Pulse Oximetry (%) Laboratory Last Values WBC 4.6 K/mm3 (4.0-10.0) 11/08/17 06:00 RBC 4.14 M/mm3 (3.60-5.2) 11/08/17 06:00 Hgb 13.5 GM/dL (10.7-15.3) 11/08/17 06:00 Hct 39.1 % (32.4-45.2) 11/08/17 06:00 MCV 94.5 fl (80-96) 11/08/17 06:00 MCH 32.6 pg (25.7-33.7) 11/08/17 06:00 MCHC 34.5 g/dl (32.0-36.0) 11/08/17 06:00 RDW 13.7 % (11.6-15.6) 11/08/17 06:00 Plt Count 271 K/MM3 (134-434) D 11/08/17 06:00 MPV 10.7 fl (7.5-11.1) 11/08/17 06:00 Sodium 139 mmol/L (136-145) 11/08/17 06:00 Potassium 3.5 mmol/L (3.5-5.1) 11/08/17 06:00 Chloride 102 mmol/L (98-107) 11/08/17 06:00 Carbon Dioxide 29 mmol/L (21-32) 11/08/17 06:00 Anion Gap 8 (8-16) 11/08/17 06:00 BUN 10 mg/dL (7-18) 11/08/17 06:00 Creatinine 0.6 mg/dL (0.55-1.02) 11/08/17 06:00 Creat Clearance w eGFR > 60 (>60) 11/08/17 06:00 Random Glucose 73 mg/dL (74-106) L 11/08/17 06:00 Calcium 8.9 mg/dL (8.5-10.1) 11/08/17 06:00 Total Bilirubin 0.6 mg/dL (0.2-1.0) D 11/08/17 06:00 AST 75 U/L (15-37) H 11/08/17 06:00 ALT 307 U/L (12-78) H 11/08/17 06:00 Alkaline Phosphatase 99 U/L (45-117) 11/08/17 06:00 Ammonia 63.65 umol/L (11-32) H 11/08/17 08:00 Total Protein 7.1 g/dl (6.4-8.2) 11/08/17 06:00 Albumin 4.0 g/dl (3.4-5.0) 11/08/17 06:00 Urine Color Elissa 11/07/17 Unknown Urine Appearance Turbid 11/07/17 Unknown Urine pH 5.0 (5.0-8.0) 11/07/17 Unknown Ur Specific [place] 1.024 (1.001-1.035) 11/07/17 Unknown Urine Protein Negative (NEGATIVE) 11/07/17 Unknown Urine Glucose (UA) Negative (NEGATIVE) 11/07/17 Unknown Urine Ketones Negative (NEGATIVE) 11/07/17 Unknown Urine Blood Negative (NEGATIVE) 11/07/17 Unknown Urine Nitrite Negative (NEGATIVE) 11/07/17 Unknown Urine Bilirubin Negative (<2.0 mg/dL) 11/07/17 Unknown Urine Urobilinogen 2.0 mg/dL (0.2-1.0) H 11/07/17 Unknown Ur Leukocyte Esterase Negative (NEGATIVE) 11/07/17 Unknown RPR Titer Reactive 1:1 (NONREACTIVE) H 11/08/17 06:00 T.pallidum Ab (MHA) Previously reactive (NONREACTIVE) 11/08/17 06:00 Patient with abnormal ammonia, AST, ALT and mild lethargy, denies SOB, CP, vertigo, parasthesia A/P Patient AOx3, self directing, aware of surroundings Normal HR and rhythm no adventitious breath sounds BS x4 , no tenderness or distension skin intact no edema Plan: Lactulose 20 ml qid Increase fluids repeat labs : INR, hep panel, CMP, ammonia continue to monitor
[2017-11-08] MEDS: CYCLOBENZAPRINE HCL 10 MG TABLET (FP) PO PRN (18:21)
[2017-11-08] MEDS ORDERED: QUEtiapine FUMARATE 200 MG TABLET PO SCH (22:00)
[2017-11-08] MEDS: THIAMINE HCL 100 MG TABLET (FP) PO SCH (22:11)
[2017-11-08] MEDS: LACTULOSE 20 GM/30 ML UDC (FOR ORAL USE ONLY) PO SCH (22:11)
[2017-11-08] MEDS: QUEtiapine FUMARATE 400 MG TABLET PO SCH (23:12)
[2017-11-09] MEDS: LACTULOSE 20 GM/30 ML UDC (FOR ORAL USE ONLY) PO SCH ×3 (07:36→22:09)
--- NOTE | 2017-11-09 09:50 | EKG ---
Test Reason : Blood Pressure : / mmHG Vent. Rate : 071 BPM Atrial Rate : 071 BPM P-R Int : 138 ms QRS Dur : 096 ms QT Int : 422 ms P-R-T Axes : 071 069 061 degrees QTc Int : 458 ms NORMAL SINUS RHYTHM POSSIBLE LEFT ATRIAL ENLARGEMENT LEFT VENTRICULAR HYPERTROPHY ABNORMAL ECG WHEN COMPARED WITH ECG OF 06-OCT-2017 14:15, NO SIGNIFICANT CHANGE WAS FOUND Confirmed by CARLOS BARRERA MD ([id number]) on 11/09/2017 9:50:07 AM Referred By: Confirmed By:CARLOS BARRERA MD
[2017-11-09] MEDS: diazePAM 5 MG TABLET PO SCH ×2 (10:21→22:08)
[2017-11-09] MEDS: cloNIDine HCL 0.1 MG TABLET PO SCH ×2 (10:21→22:09)
[2017-11-09] MEDS: PRENATAL VITAMINS W/ FOLIC ACID TABLET (FP) PO SCH (10:21)
[2017-11-09] MEDS: QUEtiapine FUMARATE 200 MG TABLET PO SCH (10:21)
[2017-11-09 10:25] LABS: ALBUMIN 3.3 g/dl (3.4-5.0); CALCIUM 8.9 mg/dL (8.5-10.1); CHLORIDE 112 mmol/L (98-107); POTASSIUM 4.2 mmol/L (3.5-5.1); SODIUM 144 mmol/L (136-145)
[2017-11-09 10:28] LABS: INR 1.11 (0.82-1.09); PROTHROMBIN TIME (PATIENT) 12.5 SEC (9.7-13.0)
[2017-11-09 10:29] LABS: ALK PHOS 82 U/L (45-117); ANION GAP 7 (8-16); BILIRUBIN,DIRECT 0.2 mg/dL (0.0-0.2); BILIRUBIN,TOTAL 0.4 mg/dL (0.2-1.0); BLOOD UREA NITROGEN 11 mg/dL (7-18); CO2 25 mmol/L (21-32); CREATININE 0.5 mg/dL (0.55-1.02); GLUCOSE,RANDOM 89 mg/dL (74-106); SGOT/AST 59 U/L (15-37); SGPT/ALT 199 U/L (12-78); TOT PROT 6.1 g/dl (6.4-8.2)
--- NOTE | 2017-11-09 12:04 | PN ---
S CIWA - CIWA Score Nausea/Vomitin Muscle Tremors: 3 Anxiety: 3 Agitation: 2 Paroxysmal Sweats: 1-Minimal Palms Moist Orientation: 0-Oriented Tacttile Disturbances: 1-Very Mild Itch/Numbness Auditory Disturbances: 1-Very Mild Visual Disturbances: 0-None Headache: 2-Mild CIWA-Ar Total Score: 16 BHS Progress Note (SOAP) Subjective: ALERT,IRRITABLE,ANXIOUS,INTERRUPTED SLEEP,PAIN IN THE BODY Objective: 11/09/17 12:03 Vital Signs Temperature 95.9 F L 11/09/17 09:11 Pulse Rate 66 11/09/17 09:11 Respiratory Rate 16 11/09/17 09:11 Blood Pressure 90/64 11/09/17 09:11 O2 Sat by Pulse Oximetry (%) 11/09/17 12:04 Laboratory Last Values WBC 4.6 K/mm3 (4.0-10.0) 11/08/17 06:00 RBC 4.14 M/mm3 (3.60-5.2) 11/08/17 06:00 Hgb 13.5 GM/dL (10.7-15.3) 11/08/17 06:00 Hct 39.1 % (32.4-45.2) 11/08/17 06:00 MCV 94.5 fl (80-96) 11/08/17 06:00 MCH 32.6 pg (25.7-33.7) 11/08/17 06:00 MCHC 34.5 g/dl (32.0-36.0) 11/08/17 06:00 RDW 13.7 % (11.6-15.6) 11/08/17 06:00 Plt Count 271 K/MM3 (134-434) D 11/08/17 06:00 MPV 10.7 fl (7.5-11.1) 11/08/17 06:00 PT with INR 12.50 SEC (9.7-13.0) 11/09/17 07:00 INR 1.11 (0.82-1.09) 11/09/17 07:00 Sodium 144 mmol/L (136-145) 11/09/17 07:00 Potassium 4.2 mmol/L (3.5-5.1) 11/09/17 07:00 Chloride 112 mmol/L (98-107) H 11/09/17 07:00 Carbon Dioxide 25 mmol/L (21-32) 11/09/17 07:00 Anion Gap 7 (8-16) L 11/09/17 07:00 BUN 11 mg/dL (7-18) 11/09/17 07:00 Creatinine 0.5 mg/dL (0.55-1.02) L 11/09/17 07:00 Creat Clearance w eGFR > 60 (>60) 11/09/17 07:00 Random Glucose 89 mg/dL (74-106) 11/09/17 07:00 Calcium 8.9 mg/dL (8.5-10.1) 11/09/17 07:00 Total Bilirubin 0.4 mg/dL (0.2-1.0) D 11/09/17 07:00 Direct Bilirubin 0.2 mg/dL (0.0-0.2) 11/09/17 07:00 AST 59 U/L (15-37) H 11/09/17 07:00 ALT 199 U/L (12-78) H 11/09/17 07:00 Alkaline Phosphatase 82 U/L (45-117) 11/09/17 07:00 Ammonia 73.07 umol/L (11-32) H 11/09/17 07:00 Total Protein 6.1 g/dl (6.4-8.2) L 11/09/17 07:00 Albumin 3.3 g/dl (3.4-5.0) L 11/09/17 07:00 Urine Color Elissa 11/07/17 Unknown Urine Appearance Turbid 11/07/17 Unknown Urine pH 5.0 (5.0-8.0) 11/07/17 Unknown Ur Specific [place] 1.024 (1.001-1.035) 11/07/17 Unknown Urine Protein Negative (NEGATIVE) 11/07/17 Unknown Urine Glucose (UA) Negative (NEGATIVE) 11/07/17 Unknown Urine Ketones Negative (NEGATIVE) 11/07/17 Unknown Urine Blood Negative (NEGATIVE) 11/07/17 Unknown Urine Nitrite Negative (NEGATIVE) 11/07/17 Unknown Urine Bilirubin Negative (<2.0 mg/dL) 11/07/17 Unknown Urine Urobilinogen 2.0 mg/dL (0.2-1.0) H 11/07/17 Unknown Ur Leukocyte Esterase Negative (NEGATIVE) 11/07/17 Unknown RPR Titer Reactive 1:1 (NONREACTIVE) H 11/08/17 06:00 T.pallidum Ab (MHA) Previously reactive (NONREACTIVE) 11/08/17 06:00 TREATED FOR SYPHILIS IN THE PAST Assessment: 11/09/17 12:05 WITHDRAWAL SYMPTOM Plan: CONTINUE DETOX,ON LACTULOSE 20 GRAMS PO TID
[2017-11-09] MEDS: QUEtiapine FUMARATE 400 MG TABLET PO SCH (22:08)
[2017-11-09] MEDS: THIAMINE HCL 100 MG TABLET (FP) PO SCH (22:08)
[2017-11-09] MEDS: CYCLOBENZAPRINE HCL 10 MG TABLET (FP) PO PRN (22:08)
[2017-11-10] MEDS: diazePAM 5 MG TABLET PO PRN (05:26)
[2017-11-10] MEDS: LACTULOSE 20 GM/30 ML UDC (FOR ORAL USE ONLY) PO SCH ×3 (05:26→22:16)
[2017-11-10] MEDS: diazePAM 5 MG TABLET PO SCH ×2 (10:14→22:17)
[2017-11-10] MEDS: PRENATAL VITAMINS W/ FOLIC ACID TABLET (FP) PO SCH (10:14)
[2017-11-10] MEDS: QUEtiapine FUMARATE 200 MG TABLET PO SCH (10:14)
[2017-11-10] MEDS: cloNIDine HCL 0.1 MG TABLET PO SCH ×2 (10:15→22:17)
--- NOTE | 2017-11-10 13:06 | PN ---
S Progress Note (SOAP) Subjective: ALERT,NON COMPLIANCE WITH LACTULOSE,TREMOR,PAIN IN THE BODY Objective: 11/10/17 13:03 Vital Signs Temperature 97.1 F L 11/10/17 09:21 Pulse Rate 81 11/10/17 09:21 Respiratory Rate 16 11/10/17 09:21 Blood Pressure 104/60 11/10/17 09:21 O2 Sat by Pulse Oximetry (%) Laboratory Last Values WBC 4.6 K/mm3 (4.0-10.0) 11/08/17 06:00 RBC 4.14 M/mm3 (3.60-5.2) 11/08/17 06:00 Hgb 13.5 GM/dL (10.7-15.3) 11/08/17 06:00 Hct 39.1 % (32.4-45.2) 11/08/17 06:00 MCV 94.5 fl (80-96) 11/08/17 06:00 MCH 32.6 pg (25.7-33.7) 11/08/17 06:00 MCHC 34.5 g/dl (32.0-36.0) 11/08/17 06:00 RDW 13.7 % (11.6-15.6) 11/08/17 06:00 Plt Count 271 K/MM3 (134-434) D 11/08/17 06:00 MPV 10.7 fl (7.5-11.1) 11/08/17 06:00 PT with INR 12.50 SEC (9.7-13.0) 11/09/17 07:00 INR 1.11 (0.82-1.09) 11/09/17 07:00 Sodium 144 mmol/L (136-145) 11/09/17 07:00 Potassium 4.2 mmol/L (3.5-5.1) 11/09/17 07:00 Chloride 112 mmol/L (98-107) H 11/09/17 07:00 Carbon Dioxide 25 mmol/L (21-32) 11/09/17 07:00 Anion Gap 7 (8-16) L 11/09/17 07:00 BUN 11 mg/dL (7-18) 11/09/17 07:00 Creatinine 0.5 mg/dL (0.55-1.02) L 11/09/17 07:00 Creat Clearance w eGFR > 60 (>60) 11/09/17 07:00 Random Glucose 89 mg/dL (74-106) 11/09/17 07:00 Calcium 8.9 mg/dL (8.5-10.1) 11/09/17 07:00 Total Bilirubin 0.4 mg/dL (0.2-1.0) D 11/09/17 07:00 Direct Bilirubin 0.2 mg/dL (0.0-0.2) 11/09/17 07:00 AST 59 U/L (15-37) H 11/09/17 07:00 ALT 199 U/L (12-78) H 11/09/17 07:00 Alkaline Phosphatase 82 U/L (45-117) 11/09/17 07:00 Ammonia 73.07 umol/L (11-32) H 11/09/17 07:00 Total Protein 6.1 g/dl (6.4-8.2) L 11/09/17 07:00 Albumin 3.3 g/dl (3.4-5.0) L 11/09/17 07:00 Urine Color Elissa 11/07/17 Unknown Urine Appearance Turbid 11/07/17 Unknown Urine pH 5.0 (5.0-8.0) 11/07/17 Unknown Ur Specific [place] 1.024 (1.001-1.035) 11/07/17 Unknown Urine Protein Negative (NEGATIVE) 11/07/17 Unknown Urine Glucose (UA) Negative (NEGATIVE) 11/07/17 Unknown Urine Ketones Negative (NEGATIVE) 11/07/17 Unknown Urine Blood Negative (NEGATIVE) 11/07/17 Unknown Urine Nitrite Negative (NEGATIVE) 11/07/17 Unknown Urine Bilirubin Negative (<2.0 mg/dL) 11/07/17 Unknown Urine Urobilinogen 2.0 mg/dL (0.2-1.0) H 11/07/17 Unknown Ur Leukocyte Esterase Negative (NEGATIVE) 11/07/17 Unknown RPR Titer Reactive 1:1 (NONREACTIVE) H 11/08/17 06:00 T.pallidum Ab (MHA) Previously reactive (NONREACTIVE) 11/08/17 06:00 Assessment: 11/10/17 13:05 WITHDRAWAL SYMPTOM Plan: CONTINUE DETOX,LACTULOSE 20 GRAMS PO TID,
[2017-11-10] MEDS: hydrOXYzine PAMOATE 50 MG CAPSULE (FP) PO PRN (17:34)
[2017-11-10] MEDS: QUEtiapine FUMARATE 400 MG TABLET PO SCH (22:17)
[2017-11-10] MEDS: THIAMINE HCL 100 MG TABLET (FP) PO SCH (22:17)
[2017-11-11] MEDS: LACTULOSE 20 GM/30 ML UDC (FOR ORAL USE ONLY) PO SCH ×3 (07:00→22:31)
[2017-11-11] MEDS ORDERED: diazePAM 5 MG TABLET PO SCH (10:00)
[2017-11-11 10:20] LABS: INR 1.12 (0.82-1.09); PROTHROMBIN TIME (PATIENT) 12.7 SEC (9.7-13.0)
[2017-11-11 10:24] LABS: CHLORIDE 108 mmol/L (98-107); POTASSIUM 4.1 mmol/L (3.5-5.1); SODIUM 141 mmol/L (136-145)
[2017-11-11 10:30] LABS: ALBUMIN 3.5 g/dl (3.4-5.0); ALK PHOS 85 U/L (45-117); ANION GAP 6 (8-16); BILIRUBIN,TOTAL 0.4 mg/dL (0.2-1.0); BLOOD UREA NITROGEN 9 mg/dL (7-18); CALCIUM 8.7 mg/dL (8.5-10.1); CO2 27 mmol/L (21-32); CREATININE 0.5 mg/dL (0.55-1.02); GLUCOSE,RANDOM 86 mg/dL (74-106); SGOT/AST 201 U/L (15-37); SGPT/ALT 340 U/L (12-78); TOT PROT 6.6 g/dl (6.4-8.2)
[2017-11-11] MEDS: QUEtiapine FUMARATE 200 MG TABLET PO SCH (10:45)
[2017-11-11] MEDS: cloNIDine HCL 0.1 MG TABLET PO SCH ×2 (10:45→22:31)
[2017-11-11] MEDS: PRENATAL VITAMINS W/ FOLIC ACID TABLET (FP) PO SCH (10:45)
--- NOTE | 2017-11-11 13:30 | PN ---
S Progress Note (SOAP) Subjective: Body ache, diarrhea x 2 days, nausea, interrupted sleep Objective: 11/11/17 13:24 Last Vital Signs Temp Pulse Resp BP Pulse Ox 97.0 F L 70 16 90/57 11/11/17 09:44 11/11/17 09:44 11/11/17 09:44 11/11/17 09:44 Noted with hypotension (asymptomatic) Laboratory Tests 11/07/17 11/08/17 11/08/17 Unknown 06:00 06:00 WBC 4.6 RBC 4.14 Hgb 13.5 Hct 39.1 MCV 94.5 MCH 32.6 MCHC 34.5 RDW 13.7 Plt Count 271 D MPV 10.7 PT with INR INR Sodium 139 Potassium 3.5 Chloride 102 Carbon Dioxide 29 Anion Gap 8 BUN 10 Creatinine 0.6 Creat Clearance w eGFR > 60 Random Glucose 73 L Calcium 8.9 Total Bilirubin 0.6 D Direct Bilirubin AST 75 H ALT 307 H Alkaline Phosphatase 99 Ammonia Total Protein 7.1 Albumin 4.0 Urine Color Elissa Urine Appearance Turbid Urine pH 5.0 Ur Specific [place] 1.024 Urine Protein Negative Urine Glucose (UA) Negative Urine Ketones Negative Urine Blood Negative Urine Nitrite Negative Urine Bilirubin Negative Urine Urobilinogen 2.0 H Ur Leukocyte Esterase Negative RPR Titer T.pallidum Ab (A) 11/08/17 11/08/17 11/09/17 06:00 08:00 07:00 WBC RBC Hgb Hct MCV MCH MCHC RDW Plt Count MPV PT with INR 12.50 INR 1.11 Sodium Potassium Chloride Carbon Dioxide Anion Gap BUN Creatinine Creat Clearance w eGFR Random Glucose Calcium Total Bilirubin Direct Bilirubin AST ALT Alkaline Phosphatase Ammonia 63.65 H Total Protein Albumin Urine Color Urine Appearance Urine pH Ur Specific [place] Urine Protein Urine Glucose (UA) Urine Ketones Urine Blood Urine Nitrite Urine Bilirubin Urine Urobilinogen Ur Leukocyte Esterase RPR Titer Reactive 1:1 H T.pallidum Ab ([facility]) Previously reactive 11/09/17 11/09/17 11/11/17 07:00 07:00 08:00 WBC RBC Hgb Hct MCV MCH MCHC RDW Plt Count MPV PT with INR INR Sodium 144 141 Potassium 4.2 4.1 Chloride 112 H 108 H Carbon Dioxide 25 27 Anion Gap 7 L 6 L BUN 11 9 Creatinine 0.5 L 0.5 L Creat Clearance w eGFR > 60 > 60 Random Glucose 89 86 Calcium 8.9 8.7 Total Bilirubin 0.4 D 0.4 Direct Bilirubin 0.2 AST 59 H 201 H ALT 199 H 340 H Alkaline Phosphatase 82 85 Ammonia 73.07 H Total Protein 6.1 L 6.6 Albumin 3.3 L 3.5 Urine Color Urine Appearance Urine pH Ur Specific [place] Urine Protein Urine Glucose (UA) Urine Ketones Urine Blood Urine Nitrite Urine Bilirubin Urine Urobilinogen Ur Leukocyte Esterase RPR Titer T.pallidum Ab ([facility]) 11/11/17 11/11/17 08:00 08:00 WBC RBC Hgb Hct MCV MCH MCHC RDW Plt Count MPV PT with INR 12.70 INR 1.12 Sodium Potassium Chloride Carbon Dioxide Anion Gap BUN Creatinine Creat Clearance w eGFR Random Glucose Calcium Total Bilirubin Direct Bilirubin AST ALT Alkaline Phosphatase Ammonia 65.90 H Total Protein Albumin Urine Color Urine Appearance Urine pH Ur Specific [place] Urine Protein Urine Glucose (UA) Urine Ketones Urine Blood Urine Nitrite Urine Bilirubin Urine Urobilinogen Ur Leukocyte Esterase RPR Titer T.pallidum Ab ([facility]) Labs reviewed: noted with increased ammonia level Assessment: 11/11/17 13:27 Withdrawal symptoms Noted with hyperammonemia Plan: Continue detox Encouraged PO hydration (water) Hyperammonemia: continue lactulose, follow up with PCP
[2017-11-11] MEDS: hydrOXYzine PAMOATE 50 MG CAPSULE (FP) PO PRN (18:30)
[2017-11-11] MEDS: NICOTINE POLACRILEX 2 MG GUM BC PRN (18:31)
[2017-11-11] MEDS: QUEtiapine FUMARATE 400 MG TABLET PO SCH (22:31)
[2017-11-11] MEDS: THIAMINE HCL 100 MG TABLET (FP) PO SCH (22:33)
[2017-11-12] MEDS: LACTULOSE 20 GM/30 ML UDC (FOR ORAL USE ONLY) PO SCH ×3 (07:04→22:03)
--- NOTE | 2017-11-12 08:45 | PN ---
S Progress Note (SOAP) Subjective: ALERT,FEEL WEAK,LOOSE BOWEL MOVEMENT, Objective: 11/12/17 08:42 Vital Signs Temperature 97.3 F L 11/12/17 07:11 Pulse Rate 62 11/12/17 07:11 Respiratory Rate 18 11/12/17 07:11 Blood Pressure 86/56 11/12/17 07:11 O2 Sat by Pulse Oximetry (%) Laboratory Results - last 24 hr 11/11/17 11/11/17 11/11/17 08:00 08:00 08:00 PT with INR 12.70 INR 1.12 Sodium 141 Potassium 4.1 Chloride 108 H Carbon Dioxide 27 Anion Gap 6 L BUN 9 Creatinine 0.5 L Creat Clearance w eGFR > 60 Random Glucose 86 Calcium 8.7 Total Bilirubin 0.4 AST 201 H ALT 340 H Alkaline Phosphatase 85 Ammonia 65.90 H Total Protein 6.6 Albumin 3.5 Assessment: 11/12/17 08:46 WITHDRAWAL SYMPTOM HIGH AMMONIA LEVEL Plan: DISCHARGE ON HOLD TODAY,REPEAT AMMONIA,CMP,DUE TO ELEVATION OF AMMONIA AND LIVER FUNCTION TEST, CONTINUE LACTULOSE 20 GRAMS PO TID
[2017-11-12 10:12] LABS: CHLORIDE 105 mmol/L (98-107); POTASSIUM 3.9 mmol/L (3.5-5.1); SODIUM 139 mmol/L (136-145)
[2017-11-12] MEDS: QUEtiapine FUMARATE 200 MG TABLET PO SCH (10:14)
[2017-11-12] MEDS: cloNIDine HCL 0.1 MG TABLET PO SCH ×2 (10:15→22:03)
[2017-11-12] MEDS: PRENATAL VITAMINS W/ FOLIC ACID TABLET (FP) PO SCH (10:15)
[2017-11-12 10:21] LABS: ALBUMIN 3.5 g/dl (3.4-5.0); ALK PHOS 104 U/L (45-117); ANION GAP 6 (8-16); BILIRUBIN,TOTAL 0.6 mg/dL (0.2-1.0); BLOOD UREA NITROGEN 10 mg/dL (7-18); CALCIUM 8.8 mg/dL (8.5-10.1); CO2 28 mmol/L (21-32); CREATININE 0.6 mg/dL (0.55-1.02); GLUCOSE,RANDOM 95 mg/dL (74-106); TOT PROT 7.1 g/dl (6.4-8.2)
[2017-11-12 10:23] LABS: SGOT/AST 446 U/L (15-37); SGPT/ALT 694 U/L (12-78)
[2017-11-12] MEDS: NICOTINE POLACRILEX 2 MG GUM BC PRN (12:59)
[2017-11-12] MEDS ORDERED: NICOTINE 21 MG/24 HOURS TOPICAL PATCH TD SCH (13:45)
[2017-11-12] MEDS: hydrOXYzine PAMOATE 50 MG CAPSULE (FP) PO PRN (14:42)
[2017-11-12] MEDS ORDERED: HALOPERIDOL 1 MG TABLET (FP) PO PRN (14:58)
[2017-11-12] MEDS ORDERED: HALOPERIDOL 5 MG TABLET (FP) PO STA (14:59)
[2017-11-12] MEDS ORDERED: diphenhydrAMINE HCL 25 MG CAPSULE (FP) PO ONE (15:08)
[2017-11-12] MEDS ORDERED: diphenhydrAMINE HCL 50 MG CAPSULE PO ONE (15:15)
[2017-11-12] MEDS ORDERED: HALOPERIDOL 5 MG TABLET (FP) PO ONE ×2 (15:15)
[2017-11-12] MEDS: QUEtiapine FUMARATE 400 MG TABLET PO SCH (22:03)
[2017-11-12] MEDS: THIAMINE HCL 100 MG TABLET (FP) PO SCH (22:03)
[2017-11-13 06:01] VITALS: TEMP 98.2
[2017-11-13] MEDS: LACTULOSE 20 GM/30 ML UDC (FOR ORAL USE ONLY) PO SCH (06:45)
[2017-11-13 08:46] VITALS: BP 100/59; PULSE 71
--- NOTE | 2017-11-13 09:16 | PN ---
S Progress Note (SOAP) Subjective: ALERT,NO COMPLAINT Objective: 11/13/17 09:11 Vital Signs Temperature 98.2 F 11/13/17 08:45 Pulse Rate 71 11/13/17 08:45 Respiratory Rate 18 11/13/17 08:45 Blood Pressure 100/59 11/13/17 08:45 O2 Sat by Pulse Oximetry (%) Laboratory Last Values WBC 4.6 K/mm3 (4.0-10.0) 11/08/17 06:00 RBC 4.14 M/mm3 (3.60-5.2) 11/08/17 06:00 Hgb 13.5 GM/dL (10.7-15.3) 11/08/17 06:00 Hct 39.1 % (32.4-45.2) 11/08/17 06:00 MCV 94.5 fl (80-96) 11/08/17 06:00 MCH 32.6 pg (25.7-33.7) 11/08/17 06:00 MCHC 34.5 g/dl (32.0-36.0) 11/08/17 06:00 RDW 13.7 % (11.6-15.6) 11/08/17 06:00 Plt Count 271 K/MM3 (134-434) D 11/08/17 06:00 MPV 10.7 fl (7.5-11.1) 11/08/17 06:00 PT with INR 12.70 SEC (9.7-13.0) 11/11/17 08:00 INR 1.12 (0.82-1.09) 11/11/17 08:00 Sodium 139 mmol/L (136-145) 11/12/17 08:30 Potassium 3.9 mmol/L (3.5-5.1) 11/12/17 08:30 Chloride 105 mmol/L (98-107) 11/12/17 08:30 Carbon Dioxide 28 mmol/L (21-32) 11/12/17 08:30 Anion Gap 6 (8-16) L 11/12/17 08:30 BUN 10 mg/dL (7-18) 11/12/17 08:30 Creatinine 0.6 mg/dL (0.55-1.02) 11/12/17 08:30 Creat Clearance w eGFR > 60 (>60) 11/12/17 08:30 Random Glucose 95 mg/dL (74-106) 11/12/17 08:30 Calcium 8.8 mg/dL (8.5-10.1) 11/12/17 08:30 Total Bilirubin 0.6 mg/dL (0.2-1.0) D 11/12/17 08:30 Direct Bilirubin 0.2 mg/dL (0.0-0.2) 11/09/17 07:00 AST 446 U/L (15-37) H 11/12/17 08:30 ALT 694 U/L (12-78) H 11/12/17 08:30 Alkaline Phosphatase 104 U/L (45-117) 11/12/17 08:30 Ammonia 32.88 umol/L (11-32) H 11/12/17 08:30 Total Protein 7.1 g/dl (6.4-8.2) 11/12/17 08:30 Albumin 3.5 g/dl (3.4-5.0) 11/12/17 08:30 Urine Color Elissa 11/07/17 Unknown Urine Appearance Turbid 11/07/17 Unknown Urine pH 5.0 (5.0-8.0) 11/07/17 Unknown Ur Specific [place] 1.024 (1.001-1.035) 11/07/17 Unknown Urine Protein Negative (NEGATIVE) 11/07/17 Unknown Urine Glucose (UA) Negative (NEGATIVE) 11/07/17 Unknown Urine Ketones Negative (NEGATIVE) 11/07/17 Unknown Urine Blood Negative (NEGATIVE) 11/07/17 Unknown Urine Nitrite Negative (NEGATIVE) 11/07/17 Unknown Urine Bilirubin Negative (<2.0 mg/dL) 11/07/17 Unknown Urine Urobilinogen 2.0 mg/dL (0.2-1.0) H 11/07/17 Unknown Ur Leukocyte Esterase Negative (NEGATIVE) 11/07/17 Unknown RPR Titer Reactive 1:1 (NONREACTIVE) H 11/08/17 06:00 T.pallidum Ab (MHA) Previously reactive (NONREACTIVE) 11/08/17 06:00 AMMONIA LEVEL DECREASE TO 32.88 AST 446,ALT 694 Assessment: 11/13/17 09:13 NO WITHDRAWAL SYMPTOM,STABLE FOR DISCHARGE Plan: DISCHARGE TODAY,DOES NOT WANT TO GO TO REHAB,ADVISE ABSTINENCE FROM ALCOHOL , DRUGS, NO TYLENOL,TO TAKE LACTULOSE 2 GRAMS 30 CC PO TID FOR 10 DAYS FOLLOW UP WITH [facility] SOON POSSIBLE
--- NOTE | 2017-11-13 09:22 | DS ---
[facility] Detox Discharge Summary Admission Date: 11/07/17 Discharge Date: 11/13/17 - History Present History: Alcohol Dependence, Cannabis Dependence, Cocaine Dependence Additional Comments: FOLLOW UP WITH CLINIC AT [facility] SOON POSSIBLE Pertinent Past History: BIPOLAR DISORDER GERD CHRONIC LOW BACK NICOTINE DEPENDENCE WEIGHT LOSS VAGINITIS HISTORY - Physical Exam Results Vital Signs: Vital Signs Temperature 98.2 F 11/13/17 08:45 Pulse Rate 71 11/13/17 08:45 Respiratory Rate 18 11/13/17 08:45 Blood Pressure 100/59 11/13/17 08:45 O2 Sat by Pulse Oximetry (%) Pertinent Admission Physical Exam Findings: WITHDRAWAL SIGNS AND SYMPTOM Vital Signs Temperature 98.2 F 11/13/17 08:45 Pulse Rate 71 11/13/17 08:45 Respiratory Rate 18 11/13/17 08:45 Blood Pressure 100/59 11/13/17 08:45 O2 Sat by Pulse Oximetry (%) Laboratory Last Values WBC 4.6 K/mm3 (4.0-10.0) 11/08/17 06:00 RBC 4.14 M/mm3 (3.60-5.2) 11/08/17 06:00 Hgb 13.5 GM/dL (10.7-15.3) 11/08/17 06:00 Hct 39.1 % (32.4-45.2) 11/08/17 06:00 MCV 94.5 fl (80-96) 11/08/17 06:00 MCH 32.6 pg (25.7-33.7) 11/08/17 06:00 MCHC 34.5 g/dl (32.0-36.0) 11/08/17 06:00 RDW 13.7 % (11.6-15.6) 11/08/17 06:00 Plt Count 271 K/MM3 (134-434) D 11/08/17 06:00 MPV 10.7 fl (7.5-11.1) 11/08/17 06:00 PT with INR 12.70 SEC (9.7-13.0) 11/11/17 08:00 INR 1.12 (0.82-1.09) 11/11/17 08:00 Sodium 139 mmol/L (136-145) 11/12/17 08:30 Potassium 3.9 mmol/L (3.5-5.1) 11/12/17 08:30 Chloride 105 mmol/L (98-107) 11/12/17 08:30 Carbon Dioxide 28 mmol/L (21-32) 11/12/17 08:30 Anion Gap 6 (8-16) L 11/12/17 08:30 BUN 10 mg/dL (7-18) 11/12/17 08:30 Creatinine 0.6 mg/dL (0.55-1.02) 11/12/17 08:30 Creat Clearance w eGFR > 60 (>60) 11/12/17 08:30 Random Glucose 95 mg/dL (74-106) 11/12/17 08:30 Calcium 8.8 mg/dL (8.5-10.1) 11/12/17 08:30 Total Bilirubin 0.6 mg/dL (0.2-1.0) D 11/12/17 08:30 Direct Bilirubin 0.2 mg/dL (0.0-0.2) 11/09/17 07:00 AST 446 U/L (15-37) H 11/12/17 08:30 ALT 694 U/L (12-78) H 11/12/17 08:30 Alkaline Phosphatase 104 U/L (45-117) 11/12/17 08:30 Ammonia 32.88 umol/L (11-32) H 11/12/17 08:30 Total Protein 7.1 g/dl (6.4-8.2) 11/12/17 08:30 Albumin 3.5 g/dl (3.4-5.0) 11/12/17 08:30 Urine Color Elissa 11/07/17 Unknown Urine Appearance Turbid 11/07/17 Unknown Urine pH 5.0 (5.0-8.0) 11/07/17 Unknown Ur Specific [place] 1.024 (1.001-1.035) 11/07/17 Unknown Urine Protein Negative (NEGATIVE) 11/07/17 Unknown Urine Glucose (UA) Negative (NEGATIVE) 11/07/17 Unknown Urine Ketones Negative (NEGATIVE) 11/07/17 Unknown Urine Blood Negative (NEGATIVE) 11/07/17 Unknown Urine Nitrite Negative (NEGATIVE) 11/07/17 Unknown Urine Bilirubin Negative (<2.0 mg/dL) 11/07/17 Unknown Urine Urobilinogen 2.0 mg/dL (0.2-1.0) H 11/07/17 Unknown Ur Leukocyte Esterase Negative (NEGATIVE) 11/07/17 Unknown RPR Titer Reactive 1:1 (NONREACTIVE) H 11/08/17 06:00 T.pallidum Ab (MHA) Previously reactive (NONREACTIVE) 11/08/17 06:00 - Treatment Hospital Course: Detox Protocol Followed, Detoxed Safely, Responded well, Discharged Condition Good Patient has Accepted a Rehab Referral to: DECLINED - Medication Discharge Medications: Ambulatory Orders Gabapentin 600 mg PO TID #90 tablet 10/07/17 Quetiapine Fumarate [Seroquel -] 200 mg PO DAILY #30 tablet 11/08/17 Quetiapine Fumarate [Seroquel -] 200 mg PO DAILY #30 tablet 11/08/17 Quetiapine Fumarate [Seroquel -] 400 mg PO HS #30 tablet 11/08/17 - Diagnosis (1) Alcohol dependence with uncomplicated withdrawal Current Visit: Yes Status: Acute (2) Cannabis dependence, uncomplicated Current Visit: Yes Status: Chronic (3) Cocaine dependence Current Visit: Yes Status: Chronic Qualifiers: Substance use status: uncomplicated Qualified Code(s): F14.20 - Cocaine dependence, uncomplicated (4) Syphilis Current Visit: No Status: Acute (5) Vaginitis Current Visit: No Status: Acute (6) Bipolar disorder Current Visit: Yes Status: Chronic (7) Chronic back pain Current Visit: Yes Status: Chronic Qualifiers: Back pain location: low back pain Back pain laterality: bilateral Sciatica presence: without sciatica Qualified Code(s): M54.5 - Low back pain; G89.29 - Other chronic pain; G89.29 - Other chronic pain (8) GERD (gastroesophageal reflux disease) Current Visit: Yes Status: Chronic Qualifiers: Esophagitis presence: without esophagitis Qualified Code(s): K21.9 - Gastro -esophageal reflux disease without esophagitis (9) Nicotine dependence Current Visit: Yes Status: Chronic Qualifiers: Nicotine product type: cigarettes Substance use status: in withdrawal Qualified Code(s): F17.213 - Nicotine dependence, cigarettes, with withdrawal (10) Weight loss Current Visit: No Status: Chronic (11) Increased ammonia level Current Visit: Yes Status: Acute
== END 2017-11-13 09:29 | disposition home or self-care (01) | DRG 897 ==
LOC: YASAS 13:14 → Y6N 16:24
PROVIDERS: ADMIT Surgery; ATTEND Surgery
PROC: HZ2ZZZZ Detoxification Services for Substance Abuse Treatment (ICD-10-PCS; principal; 2017-11-07)
DX: F11.23 Opioid dependence with withdrawal (principal); F14.20 Cocaine dependence, uncomplicated; F19.282 Other psychoactive substance dependence with psychoactive substance-induced sleep disorder; E72.20 Disorder of urea cycle metabolism, unspecified; F13.230 Sedative, hypnotic or anxiolytic dependence with withdrawal, uncomplicated; F10.230 Alcohol dependence with withdrawal, uncomplicated; F12.20 Cannabis dependence, uncomplicated; F17.210 Nicotine dependence, cigarettes, uncomplicated; F31.9 Bipolar disorder, unspecified; F19.24 Other psychoactive substance dependence with psychoactive substance-induced mood disorder; F10.282 Alcohol dependence with alcohol-induced sleep disorder; K21.9 Gastro-esophageal reflux disease without esophagitis; N76.0 Acute vaginitis; R63.4 Abnormal weight loss; Z68.24 Body mass index [BMI] 24.0-24.9, adult; M54.5 Low back pain; G89.29 Other chronic pain
CPT/HCPCS: 36415; 80053; 80076; 81003; 82140; 85027; 85610; 86593; 86780; 93005; 93010; J0735

== ENCOUNTER 2017-12-14 12:45 | Inpatient (IN) | payer OTHER ==
[2017-12-14 13:39] VITALS: BMI 26.3
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
[2017-12-14] MEDS ORDERED: MAGNESIUM HYDROX 2400MG/30ML ORAL SUSPENSION 30 ML CUP PO PRN (16:10)
[2017-12-14] MEDS ORDERED: MAG HYDROX/AL HYDROX/SIMETH 30 ML UNIT-DOSE CUP PO PRN (16:10)
[2017-12-14] MEDS ORDERED: ACETAMINOPHEN 325 MG TABLET (FP) PO PRN (16:10)
[2017-12-14] MEDS ORDERED: MENTHOL/PHENOL 1 EACH UD MM PRN (16:10)
[2017-12-14] MEDS ORDERED: LOPERAMIDE HCL 2 MG CAPSULE PO PRN (16:10)
[2017-12-14] MEDS ORDERED: NICOTINE POLACRILEX 4 MG GUM BC PRN (16:10)
[2017-12-14] MEDS ORDERED: hydrOXYzine PAMOATE 50 MG CAPSULE (FP) PO PRN (16:10)
[2017-12-14] MEDS ORDERED: P-EPHED 60MG/TRIPROLIDI 2.5MG TABLET PO PRN (16:10)
[2017-12-14] MEDS ORDERED: MAGNESIUM CITRATE 300 ML BOTTLE PO PRN (16:10)
[2017-12-14] MEDS ORDERED: guaiFENesin/D-METHORPHAN HB 10 ML UNIT-DOSE CUPS PO PRN (16:10)
[2017-12-14] MEDS ORDERED: FLUCONAZOLE 50 MG TABLET PO ONE (17:30)
--- NOTE | 2017-12-14 19:04 | PN ---
[facility] Progress Note Note: Psychiatrist retort condenser attendant note: Called by nursing staff to enter medications for newly admitted patient from [facility]. Medication reconciliation done. Seroquel 200 mh daily & 400 mg HS and Gabapentin 600 mg po TID ordered
[2017-12-14] MEDS: NICOTINE 21 MG/24 HOURS TOPICAL PATCH TD SCH (19:09)
[2017-12-14] MEDS ORDERED: MELATONIN 5 MG TABLETS PO PRN (22:00)
[2017-12-14] MEDS: GABAPENTIN 300 MG CAPSULE (FP) PO SCH (22:00)
[2017-12-14] MEDS: QUEtiapine FUMARATE 200 MG TABLET PO SCH (22:01)
[2017-12-14] MEDS: THIAMINE HCL 100 MG TABLET (FP) PO SCH (22:01)
[2017-12-14 22:30] LABS: URINE APPEARANCE SLCLOUDY; URINE BILIRUBIN NEGATIVE (<2.0 mg/dL); URINE COLOR DKYELLOW; URINE GLUCOSE (UA) NEGATIVE (NEGATIVE); URINE KETONE NEGATIVE (NEGATIVE); URINE LEUK ESTERASE NEGATIVE (NEGATIVE); URINE NITRITE NEGATIVE (NEGATIVE); URINE PROTEIN NEGATIVE (NEGATIVE); URINE UROBILINOGEN 4.0 E.U/dl mg/dL (0.2-1.0)
[2017-12-15] MEDS: GABAPENTIN 300 MG CAPSULE (FP) PO SCH ×3 (06:35→21:42)
--- NOTE | 2017-12-15 09:23 | EKG ---
Test Reason : Blood Pressure : / mmHG Vent. Rate : 070 BPM Atrial Rate : 070 BPM P-R Int : 130 ms QRS Dur : 092 ms QT Int : 406 ms P-R-T Axes : 068 073 070 degrees QTc Int : 438 ms NORMAL SINUS RHYTHM POSSIBLE LEFT ATRIAL ENLARGEMENT LEFT VENTRICULAR HYPERTROPHY ABNORMAL ECG WHEN COMPARED WITH ECG OF 07-NOV-2017 17:32, NO SIGNIFICANT CHANGE WAS FOUND Confirmed by MALICK JIM, EILEEN ([id number]) on 12/15/2017 9:22:43 AM Referred By: Confirmed By:EILEEN TERESA MD
[2017-12-15] MEDS: PRENATAL VITAMINS W/ FOLIC ACID TABLET (FP) PO SCH (09:24)
[2017-12-15] MEDS: NICOTINE 21 MG/24 HOURS TOPICAL PATCH TD SCH (09:24)
[2017-12-15] MEDS: QUEtiapine FUMARATE 200 MG TABLET PO SCH ×2 (09:24→21:44)
[2017-12-15 09:51] LABS: HEMOGLOBIN 13.1 GM/dL (10.7-15.3); MCH 31.1 pg (25.7-33.7); MCHC 33.5 g/dl (32.0-36.0); MEAN CELL VOLUME 92.9 fl (80-96); MEAN PLT VOLUME 10.4 fl (7.5-11.1); PLATELET COUNT 231 K/MM3 (134-434); RDW 13.5 % (11.6-15.6); WHITE BLOOD COUNT 3.2 K/mm3 (4.0-10.0)
[2017-12-15 10:39] LABS: CHLORIDE 108 mmol/L (98-107); POTASSIUM 4.3 mmol/L (3.5-5.1); SODIUM 143 mmol/L (136-145)
[2017-12-15 10:48] LABS: ALBUMIN 3.2 g/dl (3.4-5.0); ALK PHOS 132 U/L (45-117); ANION GAP 5 (8-16); BILIRUBIN,TOTAL 0.6 mg/dL (0.2-1.0); BLOOD UREA NITROGEN 10 mg/dL (7-18); CALCIUM 9.1 mg/dL (8.5-10.1); CO2 30 mmol/L (21-32); CREATININE 0.6 mg/dL (0.55-1.02); GLUCOSE,RANDOM 85 mg/dL (74-106); SGOT/AST 211 U/L (15-37); TOT PROT 6.7 g/dl (6.4-8.2)
[2017-12-15 10:56] LABS: SGPT/ALT 413 U/L (12-78)
[2017-12-15] MEDS: THIAMINE HCL 100 MG TABLET (FP) PO SCH (21:42)
[2017-12-16] MEDS: GABAPENTIN 300 MG CAPSULE (FP) PO SCH ×3 (06:48→21:34)
[2017-12-16] MEDS: QUEtiapine FUMARATE 200 MG TABLET PO SCH ×2 (09:06→21:34)
[2017-12-16] MEDS: PRENATAL VITAMINS W/ FOLIC ACID TABLET (FP) PO SCH (09:06)
[2017-12-16] MEDS: NICOTINE 21 MG/24 HOURS TOPICAL PATCH TD SCH (09:07)
[2017-12-16 11:17] LABS: RPR REACTIVE 1:1 (NONREACTIVE)
[2017-12-16 11:18] LABS: TREPONEMA ANTIBODY PREVIOUSLY REACTIVE (NONREACTIVE)
[2017-12-16] MEDS: THIAMINE HCL 100 MG TABLET (FP) PO SCH (21:35)
[2017-12-17] MEDS: GABAPENTIN 300 MG CAPSULE (FP) PO SCH ×3 (06:08→21:37)
[2017-12-17] MEDS: NICOTINE 21 MG/24 HOURS TOPICAL PATCH TD SCH (10:16)
[2017-12-17] MEDS: QUEtiapine FUMARATE 200 MG TABLET PO SCH ×2 (10:16→21:38)
[2017-12-17] MEDS: PRENATAL VITAMINS W/ FOLIC ACID TABLET (FP) PO SCH (10:16)
[2017-12-17] MEDS: IBUPROFEN 400 MG TABLET (FP) PO PRN (11:15)
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
[2017-12-17] MEDS: AMITRIPTYLINE HCL 25 MG TABLET (FP) PO SCH ×2 (14:59→21:37)
--- NOTE | 2017-12-17 15:31 | PN ---
[facility] Progress Note Note: Patient presents with concerns about labs and liver. States she was treated with Lactulose in past for elevated Ammonia levels. States she did not follow up with PCP in community and did not finish taking medication. Also c/o fish smelling white-pierre vaginal discharge x 3 days. Denies fever, urinary frequency and dysuria. +constipation and hard stools Laboratory Tests 12/14/17 12/15/17 12/15/17 22:00 08:00 08:00 WBC 3.2 L D RBC 4.20 Hgb 13.1 Hct 39.0 MCV 92.9 MCH 31.1 MCHC 33.5 RDW 13.5 Plt Count 231 MPV 10.4 Sodium 143 Potassium 4.3 Chloride 108 H Carbon Dioxide 30 Anion Gap 5 L BUN 10 Creatinine 0.6 Creat Clearance w eGFR > 60 Random Glucose 85 Calcium 9.1 Total Bilirubin 0.6 AST 211 H ALT 413 H Alkaline Phosphatase 132 H Total Protein 6.7 Albumin 3.2 L Urine Color Dkyellow Urine Appearance Slcloudy Urine pH 7.0 D Ur Specific [place] 1.020 Urine Protein Negative Urine Glucose (UA) Negative Urine Ketones Negative Urine Blood Negative Urine Nitrite Negative Urine Bilirubin Negative Urine Urobilinogen 4.0 e.u/dl H Ur Leukocyte Esterase Negative RPR Titer T.pallidum Ab (MHA) 12/15/17 08:00 WBC RBC Hgb Hct MCV MCH MCHC RDW Plt Count MPV Sodium Potassium Chloride Carbon Dioxide Anion Gap BUN Creatinine Creat Clearance w eGFR Random Glucose Calcium Total Bilirubin AST ALT Alkaline Phosphatase Total Protein Albumin Urine Color Urine Appearance Urine pH Ur Specific [place] Urine Protein Urine Glucose (UA) Urine Ketones Urine Blood Urine Nitrite Urine Bilirubin Urine Urobilinogen Ur Leukocyte Esterase RPR Titer Reactive 1:1 H T.pallidum Ab (MHA) Previously reactive Vital Signs Temperature 97.9 F 12/17/17 06:53 Pulse Rate 75 12/17/17 06:53 Respiratory Rate 16 12/17/17 06:53 Blood Pressure 92/68 12/17/17 06:53 O2 Sat by Pulse Oximetry (%) obj: general: patient anxious and hyperactive. Alert and oriented x 3. Skin: warm and dry GI: soft, no distention or tenderness ext: no edema a/p: elevated LFTS Hx of elevated ammonia levels constipation BV will order Ammonia level order lactulose 20gm bid for constipation as this can also treat ammonia level if elevated start flagyl 250mg tid x 7 days continue to monitor clinically
[2017-12-17] MEDS ORDERED: COLLOIDAL OATMEAL 1 BAR EACH TP PRN (15:53)
[2017-12-17] MEDS: THIAMINE HCL 100 MG TABLET (FP) PO SCH (21:37)
[2017-12-17] MEDS: LACTULOSE 20 GM/30 ML UDC (FOR ORAL USE ONLY) PO SCH (21:40)
[2017-12-17] MEDS: metroNIDAZOLE 250 MG TABLET PO SCH (21:40)
[2017-12-18] MEDS: metroNIDAZOLE 250 MG TABLET PO SCH ×3 (06:35→21:36)
[2017-12-18] MEDS: AMITRIPTYLINE HCL 25 MG TABLET (FP) PO SCH ×3 (06:35→21:36)
[2017-12-18] MEDS: GABAPENTIN 300 MG CAPSULE (FP) PO SCH ×3 (06:35→21:36)
[2017-12-18] MEDS: LACTULOSE 20 GM/30 ML UDC (FOR ORAL USE ONLY) PO SCH ×3 (09:20→21:36)
[2017-12-18] MEDS: PRENATAL VITAMINS W/ FOLIC ACID TABLET (FP) PO SCH (09:20)
[2017-12-18] MEDS: NICOTINE 21 MG/24 HOURS TOPICAL PATCH TD SCH (09:20)
[2017-12-18] MEDS: QUEtiapine FUMARATE 200 MG TABLET PO SCH ×2 (09:20→21:36)
--- NOTE | 2017-12-18 15:38 | PN ---
[facility] Progress Note Note: Vital Signs Temperature 98.0 F 12/18/17 07:26 Pulse Rate 71 12/18/17 07:26 Respiratory Rate 18 12/18/17 07:26 Blood Pressure 116/75 12/18/17 07:26 O2 Sat by Pulse Oximetry (%) Laboratory Last Values WBC 3.2 K/mm3 (4.0-10.0) L D 12/15/17 08:00 RBC 4.20 M/mm3 (3.60-5.2) 12/15/17 08:00 Hgb 13.1 GM/dL (10.7-15.3) 12/15/17 08:00 Hct 39.0 % (32.4-45.2) 12/15/17 08:00 MCV 92.9 fl (80-96) 12/15/17 08:00 MCH 31.1 pg (25.7-33.7) 12/15/17 08:00 MCHC 33.5 g/dl (32.0-36.0) 12/15/17 08:00 RDW 13.5 % (11.6-15.6) 12/15/17 08:00 Plt Count 231 K/MM3 (134-434) 12/15/17 08:00 MPV 10.4 fl (7.5-11.1) 12/15/17 08:00 Sodium 143 mmol/L (136-145) 12/15/17 08:00 Potassium 4.3 mmol/L (3.5-5.1) 12/15/17 08:00 Chloride 108 mmol/L (98-107) H 12/15/17 08:00 Carbon Dioxide 30 mmol/L (21-32) 12/15/17 08:00 Anion Gap 5 (8-16) L 12/15/17 08:00 BUN 10 mg/dL (7-18) 12/15/17 08:00 Creatinine 0.6 mg/dL (0.55-1.02) 12/15/17 08:00 Creat Clearance w eGFR > 60 (>60) 12/15/17 08:00 Random Glucose 85 mg/dL (74-106) 12/15/17 08:00 Calcium 9.1 mg/dL (8.5-10.1) 12/15/17 08:00 Total Bilirubin 0.6 mg/dL (0.2-1.0) 12/15/17 08:00 AST 211 U/L (15-37) H 12/15/17 08:00 ALT 413 U/L (12-78) H 12/15/17 08:00 Alkaline Phosphatase 132 U/L (45-117) H 12/15/17 08:00 Ammonia 75.9 umol/L (11-32) H 12/18/17 07:25 Total Protein 6.7 g/dl (6.4-8.2) 12/15/17 08:00 Albumin 3.2 g/dl (3.4-5.0) L 12/15/17 08:00 Urine Color Dkyellow 12/14/17 22:00 Urine Appearance Slcloudy 12/14/17 22:00 Urine pH 7.0 (5.0-8.0) D 12/14/17 22:00 Ur Specific [place] 1.020 (1.001-1.035) 12/14/17 22:00 Urine Protein Negative (NEGATIVE) 12/14/17 22:00 Urine Glucose (UA) Negative (NEGATIVE) 12/14/17 22:00 Urine Ketones Negative (NEGATIVE) 12/14/17 22:00 Urine Blood Negative (NEGATIVE) 12/14/17 22:00 Urine Nitrite Negative (NEGATIVE) 12/14/17 22:00 Urine Bilirubin Negative (<2.0 mg/dL) 12/14/17 22:00 Urine Urobilinogen 4.0 e.u/dl mg/dL (0.2-1.0) H 12/14/17 22:00 Ur Leukocyte Esterase Negative (NEGATIVE) 12/14/17 22:00 RPR Titer Reactive 1:1 (NONREACTIVE) H 12/15/17 08:00 T.pallidum Ab (MHA) Previously reactive (NONREACTIVE) 12/15/17 08:00 elevated AST , Acetaminophen d/c asymptomatic elevated ammonia levels, lactulose increase from 20mg BID to 20 mg QID increase fluids repeat ammonia level 12/20/17 continue to monitor
[2017-12-18] MEDS: THIAMINE HCL 100 MG TABLET (FP) PO SCH (21:36)
[2017-12-19] MEDS: metroNIDAZOLE 250 MG TABLET PO SCH ×2 (06:37→13:16)
[2017-12-19] MEDS: AMITRIPTYLINE HCL 25 MG TABLET (FP) PO SCH ×2 (06:37→13:15)
[2017-12-19] MEDS: GABAPENTIN 300 MG CAPSULE (FP) PO SCH ×2 (06:37→13:14)
[2017-12-19 07:28] VITALS: BP 107/72; PULSE 89; TEMP 98.1
[2017-12-19] MEDS: IBUPROFEN 400 MG TABLET (FP) PO PRN (08:37)
[2017-12-19] MEDS: NICOTINE 21 MG/24 HOURS TOPICAL PATCH TD SCH (09:05)
[2017-12-19] MEDS: QUEtiapine FUMARATE 200 MG TABLET PO SCH (09:05)
[2017-12-19] MEDS: PRENATAL VITAMINS W/ FOLIC ACID TABLET (FP) PO SCH (09:05)
[2017-12-19] MEDS: LACTULOSE 20 GM/30 ML UDC (FOR ORAL USE ONLY) PO SCH ×2 (09:05→13:28)
[2017-12-19] MEDS ORDERED: PT OWN MED DRAWER 7, Y5N ONE ×2 (13:26→16:01)
--- NOTE | 2017-12-19 15:04 | PN ---
Psychiatric Progress Note Vital Signs: Vital Signs Period Temp Pulse Resp BP Sys/Alegre Pulse Ox Last 24 Hr 98.1 F 89 18-18 107/72 Date of Session: 12/19/17 Chief Complaint:: Discharge visit HPI: Alcohol,Cocaine and Cannabis dependence comorbid with Bipolar Disorder. ROS: GERD,Neuropathy,Chronic low back pain. Current Medications: Active Medications Generic Name Dose Route Start Last Admin Trade Name Freq PRN Reason Stop Dose Admin Al Hydroxide/Mg Hydroxide 30 ml 12/14/17 16:10 Mylanta Oral Suspension - PO Q6H PRN DYSPEPSIA Amitriptyline HCl 25 mg 12/17/17 14:45 12/19/17 13:15 Elavil - PO 25 mg TID CRYSTAL Administration Colloidal Oatmeal 1 applic 12/17/17 15:53 12/18/17 17:06 Aveeno Soap - TP 1 applic DAILY PRN Administration HYGEINE Eucalyptus/Menthol/Phenol/Sorbitol 1 each 12/14/17 16:10 Cepastat Lozenge - MM Q4H PRN SORE THROAT Gabapentin 600 mg 12/14/17 22:00 12/19/17 13:14 Neurontin - PO 600 mg TID CRYSTAL Administration Guaifenesin 10 ml 12/14/17 16:10 Robitussin Dm - PO Q6H PRN COUGH Hydroxyzine Pamoate 50 mg 12/14/17 16:10 12/17/17 11:15 Vistaril - PO 50 mg Q4H PRN Administration AGITATION Ibuprofen 400 mg 12/14/17 16:10 12/19/17 08:37 Motrin - PO 400 mg Q6H PRN Administration Pain level 4-6 Lactulose 20 gm 12/18/17 18:00 12/19/17 13:28 Cephulac (Oral Use) PO 20 gm QID CRYSTAL Administration Loperamide HCl 4 mg 12/14/17 16:10 Imodium - PO Q6H PRN DIARRHEA Magnesium Citrate 300 ml 12/14/17 16:10 Citroma - PO Q48H PRN CONSTIPATION Magnesium Hydroxide 30 ml 12/14/17 16:10 Milk Of Magnesia - PO DAILY PRN CONSTIPATION Melatonin 5 mg 12/14/17 22:00 12/15/17 21:44 Melatonin PO 5 mg HS PRN Administration INSOMNIA Metronidazole 250 mg 12/17/17 22:00 12/19/17 13:16 Flagyl - PO 12/24/17 21:59 250 mg TID CRYSTAL Administration Nicotine 21 mg 12/14/17 17:30 12/19/17 09:05 Nicoderm Patch - TD Not Given DAILY CRYSTAL Nicotine Polacrilex 4 mg 12/14/17 16:10 Nicorette Gum - BC Q2H PRN NICOTINE REPLACEMENT RX Multivit/Folic Acid/Iron 1 tab 12/15/17 10:00 12/19/17 09:05 Vitamins (Sjr) - PO 1 tab DAILY CRYSTAL Administration Pseudoephedrine/Triprolidine 1 combo 12/14/17 16:10 Actifed - PO TID PRN NASAL CONGESTION Quetiapine Fumarate 200 mg 12/15/17 10:00 12/19/17 09:05 Seroquel - PO 200 mg DAILY CRYSTAL Administration Quetiapine Fumarate 400 mg 12/14/17 22:00 12/18/17 21:36 Seroquel - PO 400 mg HS CRYSTAL Administration Thiamine HCl 100 mg 12/14/17 22:00 12/18/17 21:36 Vitamin B1 - PO 100 mg HS CRYSTAL Administration Current Side Effect: No Lab tests ordered: No Lab tests reviewed: Yes Provider note:: Patient completed this program today.She has met her treatment goals and will continue to address he issues on outpatient basis at [facility] program.patient reports finding that current medications including:Seroquel 200 mg po daily and Seroquel 400 mg po hs help to cope with mod instablity,anxiety,insomnia.Scripts for 30 days of the above medications provided. Supportive therapy provided focusing on relapse prevention. Patient is stable for discharge today. Total face to face time:: 30 Mental Status Exam - Mental Status Exam Alert and Oriented to: Time, Place, Person Cognitive Function: Grossly Intact Patient Appearance: Well Groomed Mood: Euthymic Affect: Mood Congruent Patient Behavior: Uncooperative, Resitive to Care Speech Pattern: Clear Voice Loudness: Normal Thought Process: Goal Oriented Thought Disorder: Not Present Hallucinations: Denies Suicidal Ideation: Denies Homicidal Ideation: Denies Insight/Judgement: Impaired Sleep: Fair Appetite: Good Muscle strength/Tone: Normal Gait/Station: Normal Psychiatric Treatment Plan - Problem List (3) Nicotine dependence Qualifiers: Nicotine product type: cigarettes Substance use status: in withdrawal Qualified Code(s): F17.213 - Nicotine dependence, cigarettes, with withdrawal (8) Chronic back pain Qualifiers: Back pain location: low back pain Back pain laterality: bilateral Sciatica presence: without sciatica Qualified Code(s): M54.5 - Low back pain; G89.29 - Other chronic pain (9) Cocaine dependence Qualifiers: Substance use status: uncomplicated Qualified Code(s): F14.20 - Cocaine dependence, uncomplicated (10) GERD (gastroesophageal reflux disease) Qualifiers: Esophagitis presence: esophagitis presence not specified Qualified Code(s) : K21.9 - Gastro-esophageal reflux disease without esophagitis
--- NOTE | 2017-12-19 15:26 | PN ---
[facility] Progress Note Note: NOTIFIED BY RN THAT PATIENT REQUESTING TO SIGN OUT AMA. Laboratory Tests 12/14/17 12/15/17 12/15/17 22:00 08:00 08:00 WBC 3.2 L D RBC 4.20 Hgb 13.1 Hct 39.0 MCV 92.9 MCH 31.1 MCHC 33.5 RDW 13.5 Plt Count 231 MPV 10.4 Sodium 143 Potassium 4.3 Chloride 108 H Carbon Dioxide 30 Anion Gap 5 L BUN 10 Creatinine 0.6 Creat Clearance w eGFR > 60 Random Glucose 85 Calcium 9.1 Total Bilirubin 0.6 AST 211 H ALT 413 H Alkaline Phosphatase 132 H Ammonia Total Protein 6.7 Albumin 3.2 L Urine Color Dkyellow Urine Appearance Slcloudy Urine pH 7.0 D Ur Specific [place] 1.020 Urine Protein Negative Urine Glucose (UA) Negative Urine Ketones Negative Urine Blood Negative Urine Nitrite Negative Urine Bilirubin Negative Urine Urobilinogen 4.0 e.u/dl H Ur Leukocyte Esterase Negative RPR Titer T.pallidum Ab (MHA) 12/15/17 12/18/17 08:00 07:25 WBC RBC Hgb Hct MCV MCH MCHC RDW Plt Count MPV Sodium Potassium Chloride Carbon Dioxide Anion Gap BUN Creatinine Creat Clearance w eGFR Random Glucose Calcium Total Bilirubin AST ALT Alkaline Phosphatase Ammonia 75.9 H Total Protein Albumin Urine Color Urine Appearance Urine pH Ur Specific [place] Urine Protein Urine Glucose (UA) Urine Ketones Urine Blood Urine Nitrite Urine Bilirubin Urine Urobilinogen Ur Leukocyte Esterase RPR Titer Reactive 1:1 H T.pallidum Ab (MHA) Previously reactive Vital Signs Temperature 98.1 F 12/19/17 07:27 Pulse Rate 89 12/19/17 07:27 Respiratory Rate 18 12/19/17 07:27 Blood Pressure 107/72 12/19/17 07:27 O2 Sat by Pulse Oximetry (%) SUBJ: PATIENT STATES " I CAN NOT STAY HERE ANY LONGER. I FEEL CLOSED IN". DENIES CP, SOB, DIZZINESS AND ABDOMINAL PAIN OBJ: GENERAL: ALERT AND ORIENTED X 3. IN NAD. UNABLE TO SIT STILL AND NOTED PACING IN HALLWAY. SKIN: WARM AND DRY CAR: S1S2 RESP: CTA BL GI: SOFT, NON-TENDER, NO DISTENTION EXT: FULL ROM, NO EDEMA A/P: AMA PATIENT INFORMED OF ELEVATED AMMONIA LEVELS AND RISK FACTORS OF RELAPSE AND LIVER COMPLICATIONS WITH SIGNING OUT AMA. RECOMMENDED TO FOLLOW UP WITH PCP UPON DISCHARGE TO MONITOR AMMONIA LEVELS AND TO ATTEND GROUP MEETINGS TO PREVENT RELAPSE. PATIENT DENIES SI/HI. PATIENT VERBALIZED UNDERSTANDING OF INFORMATION PROVIDED AND REFUSED TO STAY. PT SIGNED OUT AMA D/C MEDICATIONS SENT TO [facility].
--- NOTE | 2017-12-19 15:27 | DS ---
[facility] Detox Discharge Summary Admission Date: 12/14/17 - Physical Exam Results Vital Signs: Vital Signs Temperature 98.1 F 12/19/17 07:27 Pulse Rate 89 12/19/17 07:27 Respiratory Rate 18 12/19/17 07:27 Blood Pressure 107/72 12/19/17 07:27 O2 Sat by Pulse Oximetry (%) - Medication Discharge Medications: Ambulatory Orders Gabapentin 600 mg PO TID #90 tablet 10/07/17 Quetiapine Fumarate [Seroquel -] 400 mg PO HS #30 tablet 11/08/17 Amitriptyline HCl [Elavil -] 25 mg PO TID #90 tablet 12/19/17 Gabapentin [Neurontin -] 600 mg PO TID #120 capsule 12/19/17 Lactulose (Oral Use) [Cephulac -] 20 gm PO TID #1 bottle 12/19/17 Quetiapine Fumarate [Seroquel -] 200 mg PO DAILY #30 tablet 12/19/17 Quetiapine Fumarate [Seroquel -] 400 mg PO HS #60 tablet 12/19/17
== END 2017-12-19 15:08 | disposition left against medical advice (07) | DRG 894 ==
LOC: YASAS 12:45 → Y3E 16:51
PROVIDERS: ADMIT Psychiatry & Neurology Psychiatry; ATTEND Psychiatry & Neurology Psychiatry
PROC: HZ42ZZZ Group Counseling for Substance Abuse Treatment, Cognitive-Behavioral (ICD-10-PCS; principal; 2017-12-14)
DX: F10.20 Alcohol dependence, uncomplicated (principal); F14.20 Cocaine dependence, uncomplicated; F31.81 Bipolar II disorder; F12.20 Cannabis dependence, uncomplicated; F17.213 Nicotine dependence, cigarettes, with withdrawal; F60.3 Borderline personality disorder; G62.9 Polyneuropathy, unspecified; K21.9 Gastro-esophageal reflux disease without esophagitis; M54.5 Low back pain; G89.29 Other chronic pain; Z20.2 Contact with and (suspected) exposure to infections with a predominantly sexual mode of transmission; Z91.5 Personal history of self-harm
CPT/HCPCS: 36415; 80053; 81003; 82140; 85027; 86593; 86780; 93005; 93010

== ENCOUNTER 2022-10-24 13:55 | Inpatient (IN) | payer OTHER ==
[2022-10-24 14:49] VITALS: BMI 17.7
[2022-10-24] MEDS ORDERED: POLYETHYLENE GLYCOL (HEALTHYLAX) 3350 17 GM PACKET PO PRN (17:47)
[2022-10-24] MEDS ORDERED: ONDANSETRON *ODT* 4 MG TABLET SL PRN (17:47)
[2022-10-24] MEDS ORDERED: LOPERAMIDE HCL 2 MG CAPSULE PO PRN (17:47)
[2022-10-24] MEDS ORDERED: MAGNESIUM HYDROX 2400MG/30ML ORAL SUSPENSION 30 ML CUP PO PRN (17:47)
[2022-10-24] MEDS ORDERED: DICYCLOMINE HCL 10 MG CAPSULE PO PRN (17:47)
[2022-10-24] MEDS ORDERED: NICOTINE 10 MG CARTRIDGE (INHALER) IH PRN (17:47)
[2022-10-24] MEDS ORDERED: BENZOCAINE/MENTHOL (CHLORASEPTIC ) LOZENGE MM PRN (17:47)
[2022-10-24] MEDS ORDERED: ACETAMINOPHEN 325 MG TABLET (FP) PO PRN (17:47)
[2022-10-24] MEDS ORDERED: NALOXONE HCL (KLOXXADO) 8 MG SPRAY NS PRN (17:47)
[2022-10-24] MEDS ORDERED: IBUPROFEN 400 MG TABLET (FP) PO PRN (17:47)
[2022-10-24] MEDS ORDERED: MAG HYDROX/AL HYDROX/SIMETH 30 ML UNIT-DOSE CUP PO PRN (17:47)
[2022-10-24] MEDS ORDERED: BISMUTH SUBSALICYLATE 524 MG/30 ML PO PRN (17:47)
[2022-10-24] MEDS ORDERED: guaiFENesin 600 MG TABLET.ER (FP) PO PRN (17:47)
[2022-10-24] MEDS ORDERED: BENZONATATE 200 MG CAPSULE PO PRN (17:47)
[2022-10-24] MEDS ORDERED: hydrOXYzine PAMOATE 25 MG CAPSULE (FP) PO PRN (17:47)
[2022-10-24] MEDS ORDERED: NALOXONE HCL 0.4 MG/ML VIAL IM PRN (17:47)
[2022-10-24] MEDS: MELATONIN 5 MG TABLETS PO SCH (22:37)
[2022-10-24] MEDS: THIAMINE HCL 100 MG TABLET (FP) PO SCH (22:37)
[2022-10-25] MEDS ORDERED: methaDONE HCL 10 MG TABLET (FOR DETOX USE ONLY) PO ONE (09:15)
[2022-10-25] MEDS: PRENATAL VITAMINS W/ FOLIC ACID TABLET (FP) PO SCH (10:33)
[2022-10-25] MEDS: IBUPROFEN 600 MG TABLET (FP) PO PRN (10:34)
[2022-10-25] MEDS: NICOTINE 14 MG/24 HOURS TOPICAL PATCH TD SCH (10:36)
[2022-10-25 11:01] LABS: HEMATOCRIT 38.9 % (32.4-45.2); HEMOGLOBIN 13.6 GM/dL (10.7-15.3); MCH 30.2 pg (25.7-33.7); MCHC 34.9 g/dl (32.0-36.0); MEAN CELL VOLUME 86.5 fl (80-96); MEAN PLT VOLUME 8.9 fl (7.5-11.1); PLATELET COUNT 274 10^3/uL (134-434); RBC 4.49 M/mm3 (3.60-5.2); RDW 13.8 % (11.6-15.6); WHITE BLOOD COUNT 4.9 K/mm3 (4.0-10.0)
[2022-10-25 11:34] LABS: BLOOD UREA NITROGEN 5.8 mg/dL (7-18)
[2022-10-25 11:35] LABS: ALBUMIN 3.3 g/dl (3.4-5.0); CALCIUM 8.9 mg/dL (8.5-10.1)
[2022-10-25 11:38] LABS: CREATININE 0.4 mg/dL (0.55-1.3)
[2022-10-25 11:39] LABS: BILIRUBIN,TOTAL 0.6 mg/dL (0.2-1)
[2022-10-25 11:40] LABS: TOT PROT 7.1 g/dl (6.4-8.2)
[2022-10-25] MEDS: MELATONIN 5 MG TABLETS PO SCH (22:46)
[2022-10-25] MEDS: THIAMINE HCL 100 MG TABLET (FP) PO SCH (22:46)
[2022-10-26] MEDS: cloNIDine HCL 0.1 MG TABLET PO PRN ×2 (10:11→22:06)
[2022-10-26] MEDS: METHOCARBAMOL 500 MG TABLET PO PRN ×2 (10:11→20:42)
[2022-10-26] MEDS: NICOTINE 14 MG/24 HOURS TOPICAL PATCH TD SCH (10:12)
[2022-10-26] MEDS: PRENATAL VITAMINS W/ FOLIC ACID TABLET (FP) PO SCH (10:12)
[2022-10-26] MEDS: MELATONIN 5 MG TABLETS PO SCH (22:04)
[2022-10-26] MEDS: THIAMINE HCL 100 MG TABLET (FP) PO SCH (22:04)
[2022-10-26] MEDS: IBUPROFEN 600 MG TABLET (FP) PO PRN (22:05)
[2022-10-27] MEDS: IBUPROFEN 600 MG TABLET (FP) PO PRN (05:32)
[2022-10-27] MEDS: cloNIDine HCL 0.1 MG TABLET PO PRN (05:33)
[2022-10-27] MEDS: METHOCARBAMOL 500 MG TABLET PO PRN (05:33)
[2022-10-27] MEDS: NICOTINE 14 MG/24 HOURS TOPICAL PATCH TD SCH (09:37)
[2022-10-27] MEDS: PRENATAL VITAMINS W/ FOLIC ACID TABLET (FP) PO SCH (09:37)
[2022-10-27 10:00] VITALS: BP 120/74; PULSE 81; RESP 16; TEMP 97.8
[2022-10-27] MEDS ORDERED: methaDONE HCL 10 MG TABLET (FOR DETOX USE ONLY) PO ONE (10:00)
[2022-10-29] MEDS ORDERED: methaDONE HCL 10 MG TABLET (FOR DETOX USE ONLY) PO ONE (10:00)
== END 2022-10-27 09:28 | disposition left against medical advice (07) | DRG 894 ==
LOC: YASAS 13:55 → Y3N 18:18
PROVIDERS: ADMIT Allergy & Immunology; ATTEND Surgery
PROC: HZ2ZZZZ Detoxification Services for Substance Abuse Treatment (ICD-10-PCS; principal; 2022-10-24)
DX: F11.23 Opioid dependence with withdrawal (principal); F14.20 Cocaine dependence, uncomplicated; F31.81 Bipolar II disorder; F17.213 Nicotine dependence, cigarettes, with withdrawal; K21.9 Gastro-esophageal reflux disease without esophagitis; R00.1 Bradycardia, unspecified; Z86.19 Personal history of other infectious and parasitic diseases; Z88.6 Allergy status to analgesic agent; Z59.00 Homelessness unspecified
CPT/HCPCS: 36415; 80053; 81025; 85027; 86593; 86780; 87811; 93005; 93010; C9803-CS; U0003; U0005